=== PATIENT | female | born 1960 | race Caucasian/White ===

== ENCOUNTER 2019-09-11 16:47 | Inpatient (IN) | payer MEDICARE, MEDICAID, SELFPAY ==
--- NOTE | ~2019-09-11 | XR_ITS ---
EXAMINATION: XR lumbar spine 2-3V DATE: 09/11/2019 17:33 INDICATION: Nontraumatic low back pain TECHNIQUE: Anteroposterior, lateral views of the lumbar spine and cone-down lateral view of the lumbo sacral junction were obtained. COMPARISON: Lumbar spine MR dated 03/03/2013 and radiographs dated 12/12/2012 FINDINGS: 15 degree lumbar dextroscoliosis centered at L3. Vertebral body heights are normal. Severe left-sided disc height loss at L3-L4. Mild disc height loss at L1-L2 and L2-L3. Mild to moderate lower lumbar f acet osteoarthritis. No fracture identified. IMPRESSION: 1. Mild lumbar dextroscoliosis with interval progression of now severe degenerative disc disease at L 3-L4. No acute osseous abnormality. Reviewed, dictated and finalized at location A. K OPERATOR IMPRESSION: 1. Mild lumbar dextroscoliosis with interval progression of now severe degenera tive disc disease at L3-L4. No acute osseous abnormality.
--- NOTE | ~2019-09-11 | CT_ITS ---
EXAMINATION: CT thoracic spine wo con DATE: 09/11/2019 18:46 INDICATION: Back pain. TECHNIQUE: Computed tomography (CT) of the thoracic spine was performed without intravenous contrast. Automated exposure control and iterative reconstruction technique were employed. The dose-length pro duct was 449.89 mGy-cm. COMPARISON: Chest CT dated 06/03/2019 FINDINGS: Minimal thoracic levocurvature. Sagittal alignment is normal. Vertebral body heights are normal. No f ractures. Moderate to severe disc height loss with degenerative endplate changes at T2-T3 and T3-T4. Moderate disc height loss at C6-C7. Mild disc height loss at C7-T1 and T4-T5 through T10-T11. No cent ral canal stenosis. Mild to moderate left-sided and moderate to severe right-sided lower cervical and upper thoracic facet osteoarthritis. Together this results in mild neural foraminal stenosis at T2-T 3 through T4-T5 and on the left at T2-T3 and T4-T5. Calcified nodules in the right lower lobe along w ith calcified right hilar and mediastinal lymph nodes consistent with old granulomatous disease. Smal l sliding-type hiatal hernia. Diffuse hepatic steatosis. IMPRESSION: 1. Moderate to severe spondylosis at T2-T3 and T3-T4. Otherwise mild thoracic spondylosis. No acute o sseous abnormality. Reviewed, dictated and finalized at location A. E PACKAGING MACHINES SETTER IMPRESSION: 1. Moderate to severe spondylosis at T2-T3 and T3-T4. Otherwise mild thoracic s pondylosis. No acute osseous abnormality.
--- NOTE | ~2019-09-11 | CT_ITS ---
EXAMINATION: CT abd pelvis lumbar w con DATE: 09/11/2019 18:46 INDICATION: Leukocytosis. Urinary tract infection. Mid to low back pain. Tachycardia. TECHNIQUE: Computed tomography (CT) of the abdomen, pelvis and lumbar spine was performed with 100 mL Omnipaque-350 intravenous contrast. Automated exposure control and iterative reconstruction techniqu e were employed. The dose-length product was 293.88 mGy-cm. COMPARISON: MRI dated 06/12/[address] dated 06/03/2019 FINDINGS: Abdomen/pelvis: Mild emphysema at the periphery of the bilateral lower lobes. Heart size is normal. No pericardial or pleural effusion. Calcified right lower lobe nodule along with a few splenic calcifications consiste nt with old granulomatous disease. Small sliding-type hiatal hernia. Diffuse hepatic steatosis with m ore focal fat at the ligamentum teres. Gallbladder, pancreas, bilateral adrenal glands and right kidn ey are normal. There are a couple low-attenuation left renal cysts measuring up to 1 cm in maximal di ameter. There is urothelial enhancement at the left renal pelvis. Approximately 2 cm diameter region of heterogeneously decreased renal parenchymal enhancement the lower pole of the left kidney with no correlate on the relatively recent MRI to suggest neoplasm in this most likely represents a region of pyelonephritis. This would also account for the new asymmetric moderate left perinephric stranding. Diffuse mild bladder wall thickening. There is mild scattered colonic diverticulosis without adjacent inflammatory change to suggest diverticulitis. Small bowel and appendix are normal. Subcutaneous str anding and both the left and right sides of the lower abdominal wall suggesting scarring related to s ubcutaneous injections. The uterus is not identified and has likely been surgically resected. Lumbar spine: Mild lumbar dextroscoliosis. There is severe left-sided disc height loss with mild sclerotic degenera tive endplate changes at L3-L4. Mild disc height loss at L1-L2, L2-L3 and at the right side of L4-L5. Disc bulges tilting in mild central canal stenosis at L2-L3 through L5-S1. Mild to moderate left raj ed neural foraminal stenosis at L3-L4. Moderate facet osteoarthritis on the left at L3-L4, and the ri ght at L4-L5 and bilaterally at L5-S1. Mild facet osteoarthritis at the remaining lumbar levels. Mild neural foraminal stenosis on the right at L3-L4 and bilaterally at L4-L5 and L5-S1. IMPRESSION: 1. Pyelonephritis at the lower pole of the left kidney. 2. Mild lumbar dextroscoliosis with moderate lumbar spondylosis. 3. Small sliding-type hiatal hernia. 4. Mild diverticulosis. Reviewed, dictated and finalized at location A. BLOCKING MACHINE OPERATOR
[2019-09-11 16:57] VITALS: BP 125/75; PULSE 143; RESP 19; TEMP 37.2; O2SAT 99
--- NOTE | 2019-09-11 17:52 | ED.BACK ---
HPI - Back Pain/Injury General Chief Complaint: Back Pain/Injury Stated Complaint: BACK PAIN Time Seen by Provider: 09/11/19 17:49 Source: patient Mode of arrival: ambulatory Limitations: no limitations History of Present Illness HPI Narrative: Pt is a 59 y/o female presenting to the ED c/o back pain radiating to buttocks. Pt reports she started experiencing bilateral lower back pain radiating to buttocks 2 days ago after getting up out of bed. Pt states her pain is worsened with movement, and notes she has chronic back pain but has never been this severe. Pt also reports chills and GORMAN, but denies fever, CP, SOB, numbness, dysuria, hematuria, ABD pain, or palpitations. Pertinent past history: prior back pain (Chronic) Onset (ago): day(s) (2) Location: right lower back and left lower back Radiation: buttocks Exacerbating factors: movement Context: other (Getting out of bed) Associated symptoms: chills and other (Headache) Related Data Home Medications Medication Instructions Recorded Confirmed amitriptyline 09/11/19 atorvastatin 09/11/19 buprenorphine 09/11/19 bupropion HCl PO 09/11/19 exenatide [Byetta] mcg SUBCUT 09/11/19 ibuprofen 09/11/19 insulin detemir U-100 [Levemir unit SUBCUT 09/11/19 FlexTouch U-100 Insuln] lisinopril 09/11/19 Allergies Allergy/AdvReac Type Severity Reaction Status Date / Time No Known Allergies Allergy Unknown Verified 03/04/19 20:19 Review of Systems Review of Systems: All systems reviewed & are unremarkable except as noted in HPI and below Constitutional: Constitutional: Reports chills and Denies fever(s) Cardiovascular: Cardiovascular: Denies chest pain and Denies palpitations Respiratory: Respiratory: Denies dyspnea Gastrointestinal: Gastrointestinal: Denies abdominal pain Genitourinary: Genitourinary: Denies hematuria and Denies dysuria Musculoskeletal: Musculoskeletal: Reports back pain (Bilateral lower radiating to buttocks) Neurologic: Reports headache(s) and Denies numbness [facility] Past Medical History Medical History (Updated 09/11/19 @ 19:15 by Ana Rosa Montes MD) Abnormal uterine bleeding (Chronic) Anxiety (Chronic) Arthritis (Chronic) Bronchitis (Chronic) COPD (chronic obstructive pulmonary disease) (Chronic) Depression (Chronic) Fibromyalgia (Chronic) History of emphysema (Chronic) HLD (hyperlipidemia) (Chronic) HTN (hypertension) (Chronic) IDDM (insulin dependent diabetes mellitus) (Chronic) Shingles (Chronic) UTI (urinary tract infection) (Chronic) Surgical History Surgical History H/O cardiac catheterization (Chronic) H/O: hysterectomy (Chronic) History of bladder surgery (Chronic) Repair following injury after Hysterectomy History of (Chronic) x2 Social History Social History (Updated 09/11/19 @ 18:17 by Braydon Bland) Smoking status: Smoker, status unknown Gender identity (if verbalized by the patient): Female Exam Narrative: Exam Narrative: GENERAL: Well-appearing, well-nourished, and in no acute distress. EYES: EOMI. NECK: Supple. CHEST: Clear to auscultation. No respiratory distress. HEART: Tachycardic rate, 140s in room, regular rhythm. No murmur heard. Normal peripheral pulses. ABDOMEN: Nondistended. SPINE: Bilateral SI joint tenderness. Bilateral positive straight leg raise. Bilateral flank pain tenderness. EXTREMITIES: Normal range of motion. No edema. SKIN: Warm, dry, no rash. Buprenorphine pain patch on rt arm. NEURO: No focal deficits. Alert and oriented. Course Course Emergency Course: Patient presenting for evaluation of lower back pain. At time of initial assessment, ABCs are intact. Vital signs notable for tachycardia without fever or hypotension. Given that degree of tachycardia, it does not seem that musculoskeletal back pain would be causing this. Her EKG shows some nonspecific ST segment changes, EKG machine is reading acute MA, I disagree with th
--- NOTE | 2019-09-11 17:55 | ECG_ITS ---
Measurements Intervals [place] Rate: 121 P: 69 AL: 139 QRS: 52 QRSD: 93 T: 60 QT: 314 QTc: 447 Interpretive Statements SINUS TACHYCARDIA ST ELEVATION IN V1-V2, CONSIDER SEPTAL INJURY OR BRUGADA SYNDROME ABNORMAL ECG Electronically Signed On 09-11-2019 19:50:53 SUPERVISOR POWDERED METAL by Justin Cardona D.O.
[2019-09-11] MEDS: ONDANSETRON INJ 4 MG/2 ML VIAL IV PUSH (18:11)
[2019-09-11 18:12] LABS: Add Urine Microscopic? YES; Appearance Urine Cloudy (Clear); Bacteria Urine 2+ /hpf; Bilirubin Urine Negative (Negative); Blood Urine 1+ (Negative); Color Urine Yellow (Yellow); Glucose Urine UA 3+ mg/dL (Negative); Ketones Urine 1+ mg/dL (Negative); Leukocyte Esterase Ur 2+ LEU/UL (Negative); Mucus Urine Moderate /lpf; Nitrate Urine Negative (Negative); Protein Urine 2+ mg/dL (Negative); Specific Grav Ur 1.018 (1.001-1.035); Squamous Epithelial Cell Urine Few /hpf (Few); Urobilinogen Urine Negative mg/dL (<2.0); WBC Urine >75
[2019-09-11] MEDS: methylPREDNISolone SOD SUCC 125 MG VIAL IV PUSH (18:13)
[2019-09-11] MEDS: MORPHINE SULFATE 4 MG/ML INJ IV PUSH (18:14)
[2019-09-11 18:15] LABS: Basophils Percent Auto 0.1 % (0.2-1.2); Hematocrit 42.1 % (37.0-47.0); Hemoglobin 13.9 g/dL (12.0-15.0); Immature Granulocyte Absolute 0.09 K/mm3 (0.00-0.031); Immature Granulocyte Percent A 0.4 % (0-0.5); Lymphocytes Absolute Auto 3.17 K/mm3 (0.9-3.2); Lymphocytes Percent Auto 15.2 % (18.3-44.2); Mean Corpuscular Hemoglobin 28.8 pg (26-34); Mean Corpuscular Volume 87.2 fl (80-100); Mean Platelet Volume 9.8 fl (7.4-10.4); Monocytes Absolute Auto 1.7 K/mm3 (0.1-0.6); Monocytes Percent Auto 8.1 % (2.6-8.5); Neutrophils Absolute Auto 15.9 K/mm3 (1.3-6.7); Neutrophils Percent Auto 76.2 % (45.5-73.1); Platelet Count Result 262 k/mm3 (150-375); Red Blood Count 4.83 M/mm3 (4.2-5.4); Red Cell Distribution Width 13.2 % (11.5-14.5); White Blood Count 20.8 K/mm3 (4.5-10.0)
[2019-09-11 18:16] VITALS: BP 111/71; PULSE 124; RESP 22; O2SAT 94
[2019-09-11] MEDS: SODIUM CHLORIDE 0.9% IV 1,000 ML 999 ML IV CONT ×2 (18:16→18:55)
[2019-09-11 18:34] LABS: Blood Urea Nitrogen 24 mg/dL (7-17); Calcium 9.4 mg/dL (8.4-10.2); Carbon Dioxide 26 mmol/L (22-30); Chloride 92 mmol/L (98-107); Estimated Glomerular Filt Rate > 60; Glucose 274 mg/dL (65-105); Potassium 4.3 mmol/L (3.4-5.0); Sodium 132 mmol/L (137-145)
[2019-09-11 18:39] LABS: Erythrocyte Sedimentation Rate 20 mm/hr (0-20)
[2019-09-11 18:55] VITALS: TEMP 37.2
[2019-09-11 18:56] VITALS: BP 101/62; PULSE 117; RESP 18; O2SAT 93
[2019-09-11 18:58] LABS: CRP 18.1 mg/dL (<1.0)
[2019-09-11 19:00] LABS: Thyroid Stimulating Hormone 0.458 uIU/mL (0.465-4.680)
[2019-09-11 19:53] LABS: Glucose Point of Care 217 (65-105)
[2019-09-11 20:06] LABS: Lactic Acid Reflex 0.7 mmol/L (0.7-2.1)
[2019-09-11 20:18] LABS: Troponin I < 0.012 ng/mL (0.000-0.034)
[2019-09-11 20:29] VITALS: BP 102/72; PULSE 110; RESP 18; O2SAT 96
[2019-09-11 21:40] VITALS: BMI 25.3
--- NOTE | 2019-09-11 21:52 | ADMGEN ---
This patient, Xochitl Galdamez, was admitted to Medical Room 341-01. Patient/family oriented to hospital policies and general routines including ID bracelet, bed and alarms, visiting hours, pain management, procedures, bathroom and other care routines, personal items, smoking policy, room service/diet, and visiting hours. Valuables list has been completed. Information on how to activate the Rapid Response Team has been discussed. Patient/Family are encouraged to report perceived risks to care and to ask questions if they do not understand what they are told or what they should do.
[2019-09-11 22:00] VITALS: BP 109/75; PULSE 99; RESP 18; TEMP 36.7; O2SAT 92
[2019-09-11] MEDS: LACTATED RINGERS 1,000 ML 125 ML IV CONT (23:53)
[2019-09-11 23:58] LABS: Glucose Point of Care 450 (65-105)
[2019-09-12] MEDS: INSULIN ASPART (*BKC) 100 UNITS/ML 10 UNITS SUB-Q ×4 (01:33→14:40)
[2019-09-12 02:41] LABS: Glucose Point of Care 389 (65-105)
--- NOTE | 2019-09-12 05:00 | PM.IMHP ---
H&P: HPI History of Present Illness Chief complaint: pyelonephritis Narrative: Xochitl Galdamez is a 59 year old female with a past medical history of poorly controlled insulin-dependent diabetes, COPD, low back pain who presented to the ER with back pain. The patient reported that the pain started She assumed that she had just moved wrong end pulled some muscles. Pain was bilateral paraspinal area and was a 10/10 in intensity. She denied any nausea or vomiting, hematuria, changes in urinary frequency or urgency but does occasionally have intermittent dysuria. She has never had a problem with frequent urinary tract infections. She has not been having any fevers or chills. She reports that she was having back pain that was a 10/10 in intensity and was generally achy in nature. She would get up to make a meal for her grand kids to her staying with her for the weekend but would feel fatigued and the pain would be so bad she would go back to bed. She became concerned and came to the ER when she developed a frontal headache that was 10/10 in intensity. She denies any chest pain or increased shortness of breath. She quit smoking cigarettes about a year ago and reports that she she does not have a cough or any changes in respiratory symptoms. She has been having normally formed bowel movements in her last bowel movement was yesterday. She gets colonoscopies every 5 years due to family history of colon cancer in her grandfather. She reports that her headache has improved with IV fluids and the pain medications given in the ER. She still has a very mild ache in her back slightly worse than her baseline chronic pain. And she reports that her headache has completely resolved. In the ER UA was consistent with UTI and CT of the abdomen and pelvis and lumbar with contrast demonstrated pyelonephritis of the lower pole of the left kidney. She also had a CT of the thoracic spine and lumbar spine which demonstrated moderate lumbar spondylosis and T2-T4 severe spondylosis. When the patient arrived to the ER she was markedly tachycardic but this has resolved. Review of Systems Review of Systems: Narrative: Except as documented in the HPI, all other systems were reviewed and are negative. [facility] Past Medical History Medical History (Updated 09/12/19 @ 07:43 by Aminata Orta DO) Anxiety (Chronic) Arthritis (Chronic) COPD (chronic obstructive pulmonary disease) (Chronic) Depression (Chronic) Fibromyalgia (Chronic) History of emphysema (Chronic) HLD (hyperlipidemia) (Inactive) HTN (hypertension) (Chronic) IDDM (insulin dependent diabetes mellitus) (Chronic) Poorly controlled Shingles (Resolved) Surgical History Surgical History (Updated 09/12/19 @ 07:21 by Aminata Orta DO) H/O cardiac catheterization (Inactive) H/O: hysterectomy (Inactive) Laparoscopic hysterectomy with bilateral salpingo-oophorectomy August 2011 due to dysfunctional uterine bleeding urine and uterine polyps History of bladder surgery (Inactive) Repair of injury associated with laparoscopic hysterectomy performed at the same time as the hysterectomy History of (Inactive) x2 Hx of abdominoplasty (Inactive) Labial abscess (Resolved) Family History Family History (Updated 09/11/19 @ 22:05 by Krysten Benitez RN) Father High cholesterol Diabetes mellitus Cerebrovascular accident Sibling Diabetes mellitus Mother Hypertension Social History Social History (Updated 09/12/19 @ 07:46 by Aminata Orta DO) Social History: The patient lives in her own home and has a large dog who is 12 years. Her grandchildren come over on the weekends and stay with her. She has 2 children who are reportedly healthy. She quit smoking 1 year ago prior to quitting she smoked 1 pack per day since she was 14 years old. She rarely drinks alcohol. She is on disability due to fibromyalgia, and arthritis. The patient's primary care physician is Dr. Magdalena Orlando. Code status i
[2019-09-12 06:00] VITALS: BP 110/64; PULSE 99; RESP 16; TEMP 36.4; O2SAT 99
[2019-09-12 06:23] LABS: Basophils Percent Auto 0.1 % (0.2-1.2); Hematocrit 40.6 % (37.0-47.0); Hemoglobin 12.8 g/dL (12.0-15.0); Immature Granulocyte Percent A 0.7 % (0-0.5); Lymphocytes Percent Auto 8.1 % (18.3-44.2); Mean Corpuscular HGB Conc 31.5 g/dl (32-36); Mean Corpuscular Hemoglobin 28.5 pg (26-34); Mean Corpuscular Volume 90.4 fl (80-100); Mean Platelet Volume 9.7 fl (7.4-10.4); Monocytes Absolute Auto 0.4 K/mm3 (0.1-0.6); Monocytes Percent Auto 2.7 % (2.6-8.5); Neutrophils Percent Auto 88.4 % (45.5-73.1); Platelet Count Result 264 k/mm3 (150-375); Red Blood Count 4.49 M/mm3 (4.2-5.4); Red Cell Distribution Width 13.2 % (11.5-14.5); White Blood Count 14.8 K/mm3 (4.5-10.0)
--- NOTE | 2019-09-12 06:25 | PC.NURSE ---
Pt is independent. Unsure of total intake.
[2019-09-12 06:41] LABS: Blood Urea Nitrogen 23 mg/dL (7-17); Calcium 9.2 mg/dL (8.4-10.2); Carbon Dioxide 30 mmol/L (22-30); Chloride 100 mmol/L (98-107); Estimated CRCL calculation 58 ml/min; Estimated Glomerular Filt Rate > 60; Glucose 312 mg/dL (65-105); Potassium 3.9 mmol/L (3.4-5.0); Sodium 136 mmol/L (137-145)
[2019-09-12] MEDS: buPROPion HCL XL (24 HR) 150 MG TABCR PO (08:38)
[2019-09-12] MEDS: ATORVASTATIN 40 MG TABLET 80 MG PO (08:39)
[2019-09-12] MEDS: AMITRIPTYLINE HCL 25 MG TABLET PO (08:40)
[2019-09-12] MEDS: LISINOPRIL 5 MG TABLET PO (08:40)
[2019-09-12] MEDS: PANTOPRAZOLE 40 MG TABLET PO (08:41)
[2019-09-12] MEDS: ENOXAPARIN 40 MG/0.4 ML SYRINGE SUB-Q (08:41)
[2019-09-12] MEDS: INSULIN ASPART (*BKC) 100 UNITS/ML SUB-Q ×2 (08:56→16:18)
[2019-09-12] MEDS: INSULIN DETEMIR 100 UNITS/ML 64 UNITS SUB-Q (09:00)
[2019-09-12] MEDS: LACTATED RINGERS 1,000 ML 125 ML IV CONT ×2 (09:05→19:19)
[2019-09-12 09:10] VITALS: PULSE 99; RESP 16; O2SAT 99
[2019-09-12 09:18] LABS: Glucose Point of Care 227 (65-105)
[2019-09-12 11:41] LABS: Glucose Point of Care 430 (65-105)
--- NOTE | 2019-09-12 12:13 | PM.IMPN ---
Progress Note: A&P Assessment and Plan (1) Acute pyelonephritis: Code(s): N10 - Acute pyelonephritis Status: Acute Assessment and Plan: Patient is 59-year-old female presented emergency department with a complaint of severe bilateral lower back pain and dysuria patient is found to pyelonephritis and being treated with Rocephin, is feeling much better compared to when she arrived denies any abdominal pain nausea or vomiting fever or chills however back pain is still persisting, will continue present management follow up on urine culture and further recommendation to follow (2) Sepsis: Qualifiers: Sepsis acute organ dysfunction status: without acute organ dysfunction Sepsis type: sepsis due to unspecified organism Qualified Code(s): A41.9 - Sepsis, unspecified organism Code(s): A41.9 - Sepsis, unspecified organism Status: Resolved Assessment and Plan: Patient met the criteria initially when presented however symptoms have resolved (3) Anxiety: Code(s): F41.9 - Anxiety disorder, unspecified Status: Chronic Assessment and Plan: Patient is clinically stable will continue home regimen and monitor (4) IDDM (insulin dependent diabetes mellitus): Code(s): E11.9 - Type 2 diabetes mellitus without complications; Z79.4 - [facility] (current) use of insulin Status: Chronic Assessment and Plan: Patient clinically stable will continue home regimen and monitor with sliding scale Subjective Interval history: Patient is 59-year-old female presented emergency department with a complaint of severe bilateral lower back pain and dysuria patient is found to pyelonephritis and being treated with Rocephin, is feeling much better compared to when she arrived denies any abdominal pain nausea or vomiting fever or chills however back pain is still persisting Review of Systems Review of Systems: All systems reviewed & are unremarkable except as noted in HPI and below Constitutional: Constitutional: Reports as per HPI Eyes: Eyes: Reports as per HPI ENT: Reports as per HPI Cardiovascular: Cardiovascular: Reports as per HPI Respiratory: Respiratory: Reports as per HPI Gastrointestinal: Gastrointestinal: Reports as per HPI Genitourinary: Genitourinary: Reports frequent urination and Reports dysuria Musculoskeletal: Musculoskeletal: Reports as per HPI Integumentary/Breasts: Skin/Breast: Reports as per HPI Neurologic: Reports as per HPI Psychiatric: Psychiatric: Reports as per HPI Exam Narrative: Exam Narrative: Obese comfortable Const: General: comfortable and no acute distress HENMT: General nose exam: nares normal Mouth: Yes moist mucous membranes Eyes: General: appearance normal, both eyes and all related structures Sclera: sclerae normal Neck: Neck: supple Resp: Effort & Inspection: normal respiratory effort Auscultation: clear to auscultation bilaterally Cardio: Rate: regular rate Rhythm: regular rhythm Other: No murmur or gallop GI: Palpation (GI): Yes soft Auscultation: normal bowel sounds Other: Diffusely tender Skin: General skin exam: normal color and no rashes or lesions noted Neuro: Speech: normal speech Sensory Exam: normal sensation Extrem: General: normal to inspection and edema Psych: Affect: anxious affect Objective Data Vital Signs Vital Signs: Vital Signs - 24 hr 09/11/19 16:57 09/11/19 18:16 09/11/19 18:55 Temperature 99.0 F 99.0 F Pulse Rate 143 H 124 H Respiratory Rate 19 22 H Blood Pressure 125/75 111/71 Pulse Oximetry 99 94 L 09/11/19 18:56 09/11/19 20:29 09/11/19 22:00 Temperature 98.1 F Pulse Rate 117 H 110 H 99 Respiratory Rate 18 18 18 Blood Pressure 101/62 102/72 109/75 Pulse Oximetry 93 L 96 92 L 09/12/19 06:00 09/12/19 09:10 Temperature 97.5 F L Pulse Rate 99 99 Respiratory Rate 16 16 Blood Pressure 110/64 Pulse Oximetry 99 99 Intake/Output Intake/Output: Intake
[2019-09-12 14:00] VITALS: BP 104/63; PULSE 120; RESP 20; TEMP 36.2; O2SAT 94
[2019-09-12 14:15] LABS: Glucose Point of Care 404 (65-105)
[2019-09-12] MEDS: IBUPROFEN 400 MG TABLET PO (14:49)
[2019-09-12 16:07] LABS: Glucose Point of Care 323 (65-105)
--- NOTE | 2019-09-12 16:10 | PC.NURSE ---
Sent unopened box of home medication 4 patches of buprenorphine to pharmacy to verify.
--- NOTE | 2019-09-12 16:21 | PHAR ---
HOME MEDICATION VERIFIED BY PHARMACY: BUPRENORPHINE 5MCG/HR TRANSDERMAL PATCHES APPLY 1 PATCH EVERY WEEK RX#[id number]
--- NOTE | 2019-09-12 19:26 | PHAR ---
The patient's home med of Exenatide [Byetta] 10 MCG has been verified.
[2019-09-12] MEDS: INSULIN DETEMIR 100 UNITS/ML 57 UNITS SUB-Q (20:47)
[2019-09-12] MEDS: INSULIN ASPART (*BKC) 100 UNITS/ML 6 UNITS SUB-Q (21:10)
[2019-09-12 21:29] LABS: Glucose Point of Care 435 (65-105)
[2019-09-12 21:45] LABS: Glucose Point of Care 364 (65-105)
[2019-09-12 22:00] VITALS: BP 99/64; PULSE 101; RESP 16; TEMP 36.4; O2SAT 96
[2019-09-13] MEDS: LACTATED RINGERS 1,000 ML 125 ML IV CONT ×2 (03:58→16:29)
[2019-09-13 06:00] VITALS: BP 99/62; PULSE 80; RESP 16; TEMP 36.1; O2SAT 96
[2019-09-13 06:30] LABS: Hematocrit 35.7 % (37.0-47.0); Hemoglobin 11.3 g/dL (12.0-15.0); Mean Corpuscular HGB Conc 31.7 g/dl (32-36); Mean Corpuscular Hemoglobin 28.9 pg (26-34); Mean Corpuscular Volume 91.3 fl (80-100); Mean Platelet Volume 9.8 fl (7.4-10.4); Platelet Count Result 247 k/mm3 (150-375); Red Blood Count 3.91 M/mm3 (4.2-5.4); Red Cell Distribution Width 13.2 % (11.5-14.5); White Blood Count 16.9 K/mm3 (4.5-10.0)
[2019-09-13 06:46] LABS: Blood Urea Nitrogen 23 mg/dL (7-17); Calcium 8.8 mg/dL (8.4-10.2); Carbon Dioxide 33 mmol/L (22-30); Chloride 103 mmol/L (98-107); Estimated CRCL calculation 67 ml/min; Estimated Glomerular Filt Rate > 60; Glucose 123 mg/dL (65-105); Potassium 3.8 mmol/L (3.4-5.0); Sodium 139 mmol/L (137-145)
[2019-09-13 07:08] LABS: Glucose Point of Care 75 (65-105)
[2019-09-13] MEDS: PANTOPRAZOLE 40 MG TABLET PO (09:30)
[2019-09-13] MEDS: ATORVASTATIN 40 MG TABLET 80 MG PO (09:30)
[2019-09-13] MEDS: ENOXAPARIN 40 MG/0.4 ML SYRINGE SUB-Q (09:30)
[2019-09-13 09:31] VITALS: BP 97/60
[2019-09-13] MEDS: AMITRIPTYLINE HCL 25 MG TABLET PO (09:32)
[2019-09-13] MEDS: LISINOPRIL 5 MG TABLET PO (09:32)
[2019-09-13] MEDS: buPROPion HCL XL (24 HR) 150 MG TABCR PO (09:32)
--- NOTE | 2019-09-13 09:56 | ECG_ITS ---
Measurements Intervals [place] Rate: 92 P: 51 MA: 145 QRS: 37 QRSD: 86 T: 51 QT: 340 QTc: 421 Interpretive Statements SINUS RHYTHM INCOMPLETE RIGHT BUNDLE BRANCH BLOCK BASELINE ARTIFACT- III, AVL, V4-V5 BORDERLINE ECG Electronically Signed On 09-13-2019 10:39:54 COFFEE BLENDER by Justin Cardona D.O.
[2019-09-13 11:26] LABS: Troponin I 0.015 ng/mL (0.000-0.034)
[2019-09-13 11:44] LABS: Glucose Point of Care 132 (65-105)
[2019-09-13 14:00] VITALS: BP 124/64; PULSE 101; RESP 18; TEMP 36.6; O2SAT 97
--- NOTE | 2019-09-13 16:29 | PM.IMPN ---
Progress Note: A&P Assessment and Plan (1) Acute pyelonephritis: Code(s): N10 - Acute pyelonephritis Status: Acute Assessment and Plan: Patient is 59-year-old female presented emergency department with a complaint of severe bilateral lower back pain and dysuria patient is found to pyelonephritis and being treated with Rocephin, is feeling much better compared to when she arrived denies any abdominal pain nausea or vomiting fever or chills however back pain is still persisting, monitor the blood culture is positive for E coli as well as urine culture sensitivities pending, patient complains of chest pain that has been persisting for sometime was seen by her primary care provider, is reproducible per patient and does not change intensity with exertion, EKG was done did not show any acute changes 3 sets of cardiac enzymes are negative for acute coronary disease (2) Sepsis: Qualifiers: Sepsis acute organ dysfunction status: without acute organ dysfunction Sepsis type: sepsis due to unspecified organism Qualified Code(s): A41.9 - Sepsis, unspecified organism Code(s): A41.9 - Sepsis, unspecified organism Status: Resolved Assessment and Plan: Patient met the criteria initially when presented however symptoms have resolved (3) Anxiety: Code(s): F41.9 - Anxiety disorder, unspecified Status: Chronic Assessment and Plan: Patient is clinically stable will continue home regimen and monitor (4) IDDM (insulin dependent diabetes mellitus): Code(s): E11.9 - Type 2 diabetes mellitus without complications; Z79.4 - [facility] (current) use of insulin Status: Chronic Assessment and Plan: Patient clinically stable will continue home regimen and monitor with sliding scale (5) Chest pain: Code(s): R07.9 - Chest pain, unspecified Status: Acute Assessment and Plan: Patient with complaint of chest had been persisting prior to coming to emergency depart see was seen by her primary care doctor, according with the patient chest pain is reproducible upon palpation there is no change in intensity with exertion, to further evaluate patient had EKG which did not show any acute changes 3 sets of cardiac enzymes are negative for acute coronary disease most likely patient is a muscular pain patient will follow up with her metal wire technician as scheduled Subjective Interval history: Patient is 59-year-old female presented emergency department with a complaint of severe bilateral lower back pain and dysuria patient is found to pyelonephritis and being treated with Rocephin, is feeling much better compared to when she arrived denies any abdominal pain nausea or vomiting fever or chills however back pain is still persisting, monitor the blood culture is positive for E coli as well as urine culture sensitivities pending, patient complains of chest pain that has been persisting for sometime was seen by her primary care provider, is reproducible per patient and does not change intensity with exertion, EKG was done did not show any acute changes 3 sets of cardiac enzymes are negative for acute coronary disease Review of Systems Review of Systems: All systems reviewed & are unremarkable except as noted in HPI and below Constitutional: Constitutional: Reports as per HPI Eyes: Eyes: Reports as per HPI ENT: Reports as per HPI Cardiovascular: Cardiovascular: Reports as per HPI Respiratory: Respiratory: Reports as per HPI Gastrointestinal: Gastrointestinal: Reports as per HPI Genitourinary: Genitourinary: Reports frequent urination and Reports dysuria Musculoskeletal: Musculoskeletal: Reports as per HPI Integumentary/Breasts: Skin/Breast: Reports as per HPI Neurologic: Reports as per HPI Psychiatric: Psychiatric: Reports as per HPI Exam Narrative: Exam Narrative: Obese comfortable Const: General: comfortable and no acute distress HENMT: General nose exam: nares normal M
[2019-09-13] MEDS: INSULIN ASPART (*BKC) 100 UNITS/ML SUB-Q (16:40)
[2019-09-13 16:59] LABS: Glucose Point of Care 242 (65-105)
[2019-09-13] MEDS: IBUPROFEN 400 MG TABLET PO (17:36)
[2019-09-13 20:39] VITALS: BP 97/57; PULSE 100; RESP 15; TEMP 36.8; O2SAT 92
[2019-09-13 20:53] LABS: Glucose Point of Care 187 (65-105)
[2019-09-13] MEDS: INSULIN DETEMIR 100 UNITS/ML 25 UNITS SUB-Q (21:37)
[2019-09-14] MEDS: LACTATED RINGERS 1,000 ML 125 ML IV CONT (01:21)
[2019-09-14] MEDS: IBUPROFEN 400 MG TABLET 800 MG PO ×2 (02:38→15:01)
[2019-09-14 06:00] VITALS: BP 108/61; PULSE 80; RESP 16; TEMP 36.3; O2SAT 96
[2019-09-14 06:21] LABS: Hematocrit 36.2 % (37.0-47.0); Hemoglobin 11.3 g/dL (12.0-15.0); Mean Corpuscular HGB Conc 31.2 g/dl (32-36); Mean Corpuscular Hemoglobin 28.5 pg (26-34); Mean Corpuscular Volume 91.2 fl (80-100); Platelet Count Result 262 k/mm3 (150-375); Red Blood Count 3.97 M/mm3 (4.2-5.4); Red Cell Distribution Width 13.1 % (11.5-14.5)
[2019-09-14 06:38] LABS: Blood Urea Nitrogen 15 mg/dL (7-17); Calcium 8.6 mg/dL (8.4-10.2); Carbon Dioxide 34 mmol/L (22-30); Chloride 100 mmol/L (98-107); Estimated CRCL calculation 79 ml/min; Estimated Glomerular Filt Rate > 60; Glucose 105 mg/dL (65-105); Potassium 3.4 mmol/L (3.4-5.0); Sodium 138 mmol/L (137-145)
[2019-09-14 08:09] LABS: Glucose Point of Care 76 (65-105)
[2019-09-14] MEDS: ATORVASTATIN 40 MG TABLET 80 MG PO (08:22)
[2019-09-14] MEDS: AMITRIPTYLINE HCL 25 MG TABLET PO (08:22)
[2019-09-14] MEDS: ENOXAPARIN 40 MG/0.4 ML SYRINGE SUB-Q (08:23)
[2019-09-14] MEDS: buPROPion HCL XL (24 HR) 150 MG TABCR PO (08:23)
[2019-09-14] MEDS: LISINOPRIL 5 MG TABLET PO (08:23)
[2019-09-14] MEDS: PANTOPRAZOLE 40 MG TABLET PO (08:23)
[2019-09-14] MEDS: INSULIN DETEMIR 100 UNITS/ML 64 UNITS SUB-Q (10:50)
[2019-09-14 11:24] LABS: Glucose Point of Care 271 (65-105)
--- NOTE | 2019-09-14 12:07 | PM.DS ---
DS: Diagnosis Admitting Diagnosis Admitting Diagnosis: Acute pyelonephritis Discharge Diagnosis (1) Acute pyelonephritis: Code(s): N10 - Acute pyelonephritis Status: Acute Assessment and Plan: Patient is 59-year-old female presented emergency department with a complaint of severe bilateral lower back pain and dysuria patient is found to pyelonephritis and being treated with Rocephin, pt feels better, denies flank pain or pain on urination. Blood culture is positive for E coli as well as urine culture sensitivities to augmentin. Pt to complete course of augmentin and follow with her PCp in 2-3 weeks time for rpt UA. Pt can use tylenol or ibuprofen for pain. (2) Sepsis: Qualifiers: Sepsis acute organ dysfunction status: without acute organ dysfunction Sepsis type: sepsis due to unspecified organism Qualified Code(s): A41.9 - Sepsis, unspecified organism Code(s): A41.9 - Sepsis, unspecified organism Status: Resolved Assessment and Plan: Patient met the criteria initially when presented, these symptoms have resolved (3) Anxiety: Code(s): F41.9 - Anxiety disorder, unspecified Status: Chronic Assessment and Plan: Patient is clinically stable (4) IDDM (insulin dependent diabetes mellitus): Code(s): E11.9 - Type 2 diabetes mellitus without complications; Z79.4 - senior care (current) use of insulin Status: Chronic Assessment and Plan: Patient clinically stable (5) Chest pain: Code(s): R07.9 - Chest pain, unspecified Status: Resolved Assessment and Plan: Patient had episode of chest pain , which has resolved, 3 sets of cardiac enzymes are negative most likely chest pain is a muscular pain patient will follow up with her building services engineer as scheduled DS: Summary Time Spent with Patient Time attestation: Total time spent providing and/or coordinating discharge services:35 minutes on day of discharge Exam Narrative: Exam Narrative: Obese comfortable Const: General: comfortable and no acute distress HENMT: General nose exam: nares normal Mouth: Yes moist mucous membranes Eyes: General: appearance normal, both eyes and all related structures Sclera: sclerae normal Neck: Neck: supple Resp: Effort & Inspection: normal respiratory effort Auscultation: clear to auscultation bilaterally Cardio: Rate: regular rate Rhythm: regular rhythm Other: No murmur or gallop GI: Palpation (GI): Yes soft Auscultation: normal bowel sounds Other: Soft non tender no flank pains BL Skin: General skin exam: normal color and no rashes or lesions noted Neuro: Speech: normal speech Sensory Exam: normal sensation Extrem: General: normal to inspection and edema Psych: Affect: anxious affect DS: Data Data Completed and Pending Labs on day of discharge: Labs from last 24 hours 09/14/19 09/14/19 09/14/19 10:46 08:07 05:51 WBC RBC Hgb Hct MCV MCH MCHC RDW Plt Count MPV Sodium 138 Potassium 3.4 Chloride 100 Carbon Dioxide 34 H BUN 15 D Creatinine 0.50 L Estim Creat Clear Calc 79 Estimated GFR > 60 Glucose 105 POC Capillary Glucose 271 H 76 Calcium 8.6 09/14/19 09/13/19 09/13/19 05:51 20:39 16:33 WBC 8.0 RBC 3.97 L Hgb 11.3 L Hct 36.2 L MCV 91.2 MCH 28.5 MCHC 31.2 L RDW 13.1 Plt Count 262 MPV 10.0 Sodium Potassium Chloride Carbon Dioxide BUN Creatinine Estim Creat Clear Calc Estimated GFR Glucose POC Capillary Glucose 187 H 242 H Calcium Preliminary micro results at discharge 09/11/19 19:50 Blood Culture - Preliminary Blood Escherichia Coli (ESBL) 09/11/19 19:50 Blood Culture - Preliminary Blood Discharge Plan Discharge Attending physician on discharge: Tori Kumar Discharging Clinician: Tori Kumar Patient Disposition: Home, Self
[2019-09-14 12:47] LABS: Add Urine Microscopic? YES; Appearance Urine Clear (Clear); Bilirubin Urine Negative (Negative); Blood Urine 1+ (Negative); Color Urine Straw (Yellow); Glucose Urine UA 3+ mg/dL (Negative); Ketones Urine Negative (Negative); Leukocyte Esterase Ur Negative LEU/UL (Negative); Mucus Urine Rare /lpf; Nitrate Urine Negative (Negative); Protein Urine Negative (Negative); RBC Urine 0-2 /hpf (0-2); Specific Grav Ur 1.011 (1.001-1.035); Squamous Epithelial Cell Urine Rare /hpf (Few); Urobilinogen Urine Negative mg/dL (<2.0); WBC Urine 0-3
[2019-09-14 13:32] LABS: Glucose Point of Care 175 (65-105)
[2019-09-14 14:00] VITALS: BP 141/72; PULSE 97; RESP 20; TEMP 36.4; O2SAT 90
== END 2019-09-14 16:10 | disposition home or self-care (01) | DRG 690 ==
LOC: ANHED 20:57 → ANH3MED 21:00
PROVIDERS: Family Medicine; Admitting Provider Internal Medicine; Emergency Provider Emergency Medicine; PCP Family Medicine; Visit Provider Family Medicine
DX: N10 Acute pyelonephritis (principal); E11.9 Type 2 diabetes mellitus without complications; Z79.4 Long term (current) use of insulin; J44.9 Chronic obstructive pulmonary disease, unspecified; M47.896 Other spondylosis, lumbar region; F41.8 Other specified anxiety disorders; E78.5 Hyperlipidemia, unspecified; I10 Essential (primary) hypertension; Z90.710 Acquired absence of both cervix and uterus; Z90.722 Acquired absence of ovaries, bilateral; Z90.79 Acquired absence of other genital organ(s); F17.290 Nicotine dependence, other tobacco product, uncomplicated
CPT/HCPCS: 36415; 72100; 72128; 72132; 74177; 80048; 81001; 83605; 84443; 84484; 85025; 85027; 85652; 86140; 87040; 87077; 87086; 87088; 87186; 93005; 96361; 96365; 96366; 96367; 96372; 96375; 99285; A9270; G0378; J0131; J0696; J1650; J1815; J2270; J2405; J2930; J7030; J7120; Q9967

== ENCOUNTER 2020-08-08 10:49 | Outpatient (CLI) | payer MEDICARE, MEDICAID, SELFPAY ==
--- NOTE | ~2020-08-08 | CT_ITS ---
EXAMINATION: CT chest wo con DATE: 08/08/2020 11:08 INDICATION: Pulmonary nodules TECHNIQUE: Computed tomography (CT) of the chest was performed without intravenous contrast. The dose -length product was 73.20 mGy-cm. Automated exposure control and iterative reconstruction technique w ere employed. COMPARISON: CT dated 06/03/2019 FINDINGS: Nonenlarged mediastinal lymph nodes, likely reactive. There are calcified mediastinal and r ight hilar lymph nodes, consistent with chronic granulomatous disease. No significant pleural or reji cardial effusion. There are calcified granulomas of the right lower lobe, liver and spleen. There is linear atelectasis/scarring of the right middle lobe and lingula. Decreased size of nonsolid groundgl ass nodule left upper lobe measuring 8 mm, likely benign. Mild emphysema. Stable ill-defined hypodens ity left hepatic lobe, possible focal fatty infiltration although mass is not excluded. IMPRESSION: 1. Decreased size of nonsolid 8 mm left upper lobe nodule, likely benign. Follow-up low dose CT chest in 12 months recommended. 2: Stable ill-defined hypodense 2 cm mass left hepatic lobe. Consider correlation with ultrasound or contrast-enhanced MRI. Reviewed, dictated and finalized at location A. IMPRESSION: 1. Decreased size of nonsolid 8 mm left upper lobe nodule, likely benign. Follo w-up low dose CT chest in 12 months recommended. 2: Stable ill-defined hypodense 2 cm mass left hepatic lobe. Consider correlati on with ultrasound or contrast-enhanced MRI.
== END 2020-08-08 10:50 | disposition home or self-care (01) ==
PROVIDERS: PCP Family Medicine; Visit Provider Internal Medicine Pulmonary Disease
DX: R93.89 Abnormal findings on diagnostic imaging of other specified body structures (principal); R91.1 Solitary pulmonary nodule
CPT/HCPCS: 71250

== ENCOUNTER 2020-12-01 14:29 | Outpatient (CLI) | payer MEDICARE, MEDICAID, SELFPAY ==
--- NOTE | ~2020-12-01 | MM_ITS ---
EXAMINATION: MM screening rox BI w ketty HISTORY: Screening TECHNIQUE: Craniocaudal and mediolateral oblique 3-D tomosynthesis images were obtained and synthetic 2-D images were generated. CAD analysis was submitted and interpreted. COMPARISON: Comparison to multiple prior studies sequentially, with oldest reviewed study dated 06/08. BREAST PARENCHYMAL COMPOSITION: There are scattered areas of fibroglandular density. FINDINGS: There is no evidence of suspicious mass, calcification, or architectural distortion to sugg est malignancy in either breast. There has been no suspicious interval change. IMPRESSION: 1. No mammographic evidence of malignancy. 2. Recommend routine screening mammography in one year. BI-RADS Category 1: Negative Reviewed, dictated and finalized at location A. 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
== END 2020-12-01 14:30 | disposition home or self-care (01) ==
LOC: ANHIMG 14:33
PROVIDERS: PCP Family Medicine; Visit Provider Family Medicine
DX: Z12.31 Encounter for screening mammogram for malignant neoplasm of breast (principal)
CPT/HCPCS: 77063; 77067

== ENCOUNTER 2021-06-29 09:42 | Outpatient (CLI) | payer MEDICARE, MEDICAID, SELFPAY ==
--- NOTE | ~2021-06-29 | XR_ITS ---
XR knee LT min 4V 06/29/2021 10:03 INDICATION: Left knee pain PROCEDURE: 4 views left knee COMPARISON: 11/01/2013 FINDINGS: Fracture, dislocation or subluxation is not identified. No significant joint effusion. The soft tissues appear within normal limits. No foreign bodies are identified. IMPRESSION: 1: NO ACUTE BONE OR JOINT ABNORMALITY IDENTIFIED. Reviewed, dictated and finalized at location A.
== END 2021-06-29 09:43 | disposition home or self-care (01) ==
LOC: ANHIMG 09:49
PROVIDERS: PCP Family Medicine; Visit Provider Family Medicine
DX: M25.562 Pain in left knee (principal)
CPT/HCPCS: 73564

== ENCOUNTER 2021-07-23 15:14 | Outpatient (CLI) | payer MEDICARE, MEDICAID, SELFPAY ==
--- NOTE | ~2021-07-23 | CT_ITS ---
EXAMINATION:CT diagnostic chest wo con DATE: 07/23/2021 16:04 INDICATION: Solitary pulmonary nodule. TECHNIQUE: Computed tomography (CT) of the chest was performed without intravenous contrast. Automate d exposure control and iterative reconstruction technique were employed. The dose-length product (DLP ) was 78.08 mGy-cm. COMPARISON: Chest CT 08/08/2020, 06/03/19 FINDINGS: There is mild emphysema. There is mild atelectasis bilaterally. Calcified right lung nodule s and calcified right hilar and mediastinal lymph nodes are consistent with old granulomatous disease . Again seen is a 6 mm nodule in right upper lobe. There is an 11 mm part-solid nodule with 3 mm nadia d component. There is a stable 8 mm nodule in basilar left lower lobe. These findings are stable fro m 06/03/2019. There is mild bronchiectasis in left lower lobe. No pleural effusion. The heart size is normal. No pericardial effusion. There is a small sliding hiatal hernia. There is diffuse hepatic danna atosis. There is severe thoracic spondylosis. IMPRESSION: 1. Stable pulmonary nodules, likely benign. 2. Mild emphysema. 3. Diffuse hepatic steatosis. 4. Small sliding hiatal hernia. Reviewed, dictated and finalized at location A.
== END 2021-07-23 15:15 | disposition home or self-care (01) ==
PROVIDERS: PCP Family Medicine; Visit Provider Family Medicine
DX: R91.1 Solitary pulmonary nodule (principal); J43.9 Emphysema, unspecified; K44.9 Diaphragmatic hernia without obstruction or gangrene; K76.0 Fatty (change of) liver, not elsewhere classified
CPT/HCPCS: 71250

== ENCOUNTER 2021-08-08 15:04 | Outpatient (CLI) | payer MEDICARE, MEDICAID, SELFPAY ==
--- NOTE | ~2021-08-08 | XR_ITS ---
EXAMINATION: XR wrist RT min 3V DATE: 08/08/2021 15:23 INDICATION: Right wrist osteoarthritis and pain. TECHNIQUE: 4 views of right wrist were obtained. COMPARISON: None. FINDINGS: Bone alignment is normal. No fracture. Joint spaces are well maintained. IMPRESSION: 1. Normal right wrist. Reviewed, dictated and finalized at location A. IMPRESSION: 1. Normal right wrist.
--- NOTE | ~2021-08-08 | XR_ITS ---
EXAMINATION: XR hand RT min 3V DATE: 08/08/2021 15:23 INDICATION: Right hand osteoarthritis and pain. TECHNIQUE: 3 views of right hand were obtained. COMPARISON: None. FINDINGS: Bone alignment is normal. No fracture. There is mild osteoarthritis of first and fifth meta carpophalangeal joints. IMPRESSION: 1. Mild polyarticular osteoarthritis. Reviewed, dictated and finalized at location A.
== END 2021-08-08 15:05 | disposition home or self-care (01) ==
PROVIDERS: PCP Family Medicine; Visit Provider Plastic Surgery
DX: M19.041 Primary osteoarthritis, right hand (principal); M19.042 Primary osteoarthritis, left hand
CPT/HCPCS: 73110; 73130

== ENCOUNTER 2021-09-28 07:59 | Outpatient (CLI) | payer MEDICARE, MEDICAID, SELFPAY ==
--- NOTE | ~2021-09-28 | DEXA_ITS ---
Bone Density Report Name: CADEN BAILEY Age: 61 Sex: Female Ethnicity: White Date of : 1960 Indication: osteopenia; height loss; asthma or emphysema; hysterectomy; postmenopausal Referring Provider: RM, SARA Catalan Study: Bone densitometry was performed. Exam Date: September 28, 2021 Accession number: [id number] Bone Density: Region BMD T-score Z-score Classification AP Spine (L1, L2, L4) 0.920 -1.0 0.5 Normal Femoral Neck (Left) 0.662 -1.7 -0.3 Osteopenia Total Hip (Left) 0.794 -1.2 -0.1 Osteopenia Total Hip Bilateral Avg 0.792 -1.3 -0.2 Osteopenia Femoral Neck (Right) 0.692 -1.4 0.0 Osteopenia Total Hip (Right) 0.789 -1.3 -0.2 Osteopenia World Health Organization criteria for BMD impression classify patients as: Normal (T-score at or above -1.0), Osteopenia (T-score between -1.0 and -2.5), or Osteoporosis (T-score at or below -2.5). 10-year Fracture Risk(1): Major Osteoporotic Fracture 9.1% Hip Fracture 1.6% Reported Risk Factors: [place] (), Neck BMD=0.662, BMI=24.7, smoking (1) FRAX(R) Version 3.08. Fracture probability calculated for an untreated patient. Fracture probability may be lower if the patient has received treatment. Previous Exams: Region Exam Age BMD T-score BMD Change BMD Change Date g/cm2 vs Baseline vs Previous AP Spine(L1, L2, L4) 09/28/2021 61 0.920 -1.0 -0.106(-10.3%) -0.028(-2.9%)* 07/23/2017 57 0.948 -0.8 -0.078(-7.6%)# 0.003(0.3%) 05/17/2014 53 0.945 -0.8 -0.081(-7.9%)# -0.081(-7.9%)# 02/03/2012 51 1.026 -0.1 Total Hip(Left) 09/28/2021 61 0.794 -1.2 -0.159(-16.7%) -0.036(-4.3%)* 07/23/2017 57 0.830 -0.9 -0.123(-12.9%) -0.034(-3.9%)* 05/17/2014 53 0.864 -0.6 -0.089(-9.4%)# -0.089(-9.4%)# 02/03/2012 51 0.953 0.1 Total Hip(Right) 09/28/2021 61 0.789 -1.3 -0.203(-20.4%) -0.023(-2.8%) 07/23/2017 57 0.811 -1.1 -0.180(-18.2%) -0.024(-2.8%) 05/17/2014 53 0.835 -0.9 -0.156(-15.8%) -0.156(-15.8%) 02/03/2012 51 0.991 0.4 *Denotes significance at 95% confidence level, LSC for AP Spine = 0.022 g/cm2, LSC for Total Hip = 0.027 g/cm2 Clinical Information Provided by Patient: Smokes Has used the following medications: Vitamin D, Calcium Has the following medical conditions: Asthma or Emphysema, Hysterectomy Patient maximum height was 63.5 Menopause Age: 51 No regular weight bearing exercise Drinks caffeinated beverages Onset of menses at age 12 Number of children 2
== END 2021-09-28 08:00 | disposition home or self-care (01) ==
LOC: ANHIMG 08:00
PROVIDERS: PCP Family Medicine; Visit Provider Family Medicine
DX: Z78.0 Asymptomatic menopausal state (principal); M85.89 Other specified disorders of bone density and structure, multiple sites
CPT/HCPCS: 77080

== ENCOUNTER 2021-10-17 10:40 | Emergency (ER) | payer MEDICARE, MEDICAID, SELFPAY ==
--- NOTE | ~2021-10-17 | XR_ITS ---
EXAMINATION: XR chest 2V DATE: 10/17/2021 14:02 INDICATION: Hypoxia. 4 days of productive cough. TECHNIQUE: frontal and lateral views of the chest were obtained. COMPARISON: Chest CT dated 07/23/2021 FINDINGS: Mild linear and curvilinear discoid atelectasis/scarring in the right middle lobe and lingula. No oth er airspace opacities, pulmonary edema, pleural effusion or pneumothorax. The cardiomediastinal silho uette is normal. Visualized bones and soft tissues are unremarkable. IMPRESSION: 1. Mild discoid atelectasis/scarring in the right middle lobe and lingula. Reviewed, dictated and finalized at location B. 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
--- NOTE | ~2021-10-17 | XR_ITS ---
EXAMINATION: XR ankle RT min 3V DATE: 10/17/2021 14:02 INDICATION: Erythema and soreness at the right ankle TECHNIQUE: Anteroposterior, oblique, mortise, and lateral views of the right ankle were obtained. COMPARISON: None. FINDINGS: Alignment is normal. No fracture. Joint spaces are well maintained. Right ankle joint effusion with increased density projecting over the anterior recess of the tibiotalar joint space. Prominent soft t issue swelling overlying the lateral malleolus. No cortical erosions or periosteal reaction. No evide nt soft tissue gas or radiopaque foreign bodies. IMPRESSION: 1. Nonspecific right ankle joint effusion and focal soft tissue swelling over the lateral malleolus. No osseous abnormality. Reviewed, dictated and finalized at location B. ON LINER IMPRESSION: 1. Nonspecific right ankle joint effusion and focal soft tissue swelling over t he lateral malleolus. No osseous abnormality.
[2021-10-17 10:57] VITALS: BP 106/80; PULSE 130; RESP 20; TEMP 37.9; O2SAT 100
[2021-10-17 13:06] VITALS: BP 110/75; PULSE 124; RESP 18; TEMP 36.3; O2SAT 89
--- NOTE | 2021-10-17 13:49 | ED.WOUNDLAC ---
HPI - Wound/Laceration General Chief Complaint: Wound/Laceration Stated Complaint: leg wound/swelling/de luna Time Seen by Provider: 10/17/21 13:37 Source: patient and RN notes reviewed Mode of arrival: ambulatory Limitations: no limitations History of Present Illness HPI narrative: This is a 61 year old female with history of multiple medical problems including Diabetes mellitus who presents for evaluation of right ankle pain with redness, pain and swelling. She noticed itching to right lateral ankle 2-3 days ago, and she later developed pain, redness, and swelling. She denies injury ankle or creating a wound. She is also complaining of nausea, vomiting. She denies chest pain, shortness of breath or abdominal pain. She reports having subjective fever and chills. She also states her blood sugar has been under control. Related Data Home Medications Medication Instructions Recorded Confirmed Byetta 10 mcg SUBCUT BID 09/11/19 10/15/21 Levemir FlexTouch U-100 Insuln See Rx Instructions .ROUTE .COMPLEX 09/11/19 10/15/21 albuterol sulfate [ProAir HFA] 2 puff INHALATION QID PRN 09/11/19 10/15/21 amitriptyline 25 mg PO DAILY 09/11/19 10/15/21 atorvastatin 80 mg PO DAILY 09/11/19 10/15/21 budesonide-formoterol [Symbicort] 2 puff INHALATION Q12H 09/11/19 10/15/21 buprenorphine 5 mcg TRANSDERMAL WEEKLY 09/11/19 10/15/21 bupropion HCl 150 mg PO DAILY 09/11/19 10/15/21 ibuprofen 800 mg PO TID PRN 09/11/19 10/15/21 omeprazole 40 mg PO DAILY 09/11/19 10/15/21 aspirin 81 mg PO DAILY 10/15/21 10/15/21 calcium carbonate 250 mg PO DAILY PRN 10/15/21 10/15/21 diltiazem HCl 120 mg PO DAILY 10/15/21 10/15/21 fluticasone propionate 1 spray INTRANASAL DAILY 10/15/21 10/15/21 [id number] 1 cap PO DAILY 10/15/21 10/15/21 [krill oil] lactobacillus combination no.8 1 cell PO DAILY 10/15/21 10/15/21 [Adult Probiotic] metoprolol succinate 100 mg PO DAILY 10/15/21 10/15/21 multivit with min-folic acid 1 tablet PO DAILY 10/15/21 10/15/21 [Adult One Daily Multivitamin] psyllium husk [Fiber-Caps 0.52 g PO DAILY 10/15/21 10/15/21 (psyllium husk)] Allergies Allergy/AdvReac Type Severity Reaction Status Date / Time No Known Allergies Allergy Unknown Verified 10/15/21 12:58 Review of Systems Review of Systems: All systems reviewed & are unremarkable except as noted in HPI and below PMFSH Past Medical History Medical History Anxiety Arthritis COPD (chronic obstructive pulmonary disease) Depression Fibromyalgia History of emphysema HLD (hyperlipidemia) HTN (hypertension) IDDM (insulin dependent diabetes mellitus) Poorly controlled Shingles Surgical History Surgical History H/O cardiac catheterization H/O: hysterectomy Laparoscopic hysterectomy with bilateral salpingo-oophorectomy August 2011 due to dysfunctional uterine bleeding urine and uterine polyps History of bladder surgery Repair of injury associated with laparoscopic hysterectomy performed at the same time as the hysterectomy History of x2 Hx of abdominoplasty Labial abscess Family History Family History (Updated 09/11/19 @ 22:05 by Krysten Benitez RN) Father High cholesterol Diabetes mellitus Cerebrovascular accident Sibling Diabetes mellitus Mother Hypertension Social History Social History (Updated 09/12/19 @ 07:46 by Aminata Orta DO) Social History: The patient lives in her own home and has a large dog who is 12 years. Her grandchildren come over on the weekends and stay with her. She has 2 children who are reportedly healthy. She quit smoking 1 year ago prior to quitting she smoked 1 pack per day since she was 14 years old. She rarely drinks alcohol. She is on disability due to fibromyalgia, and arthritis. The patient's primary care physician is Dr. Magdalena Orlando. Code status is full code. Smoking
[2021-10-17 15:07] LABS: Basophils Percent Auto 0.2 % (0.2-1.2); Eosinophils Percent Auto 0.2 % (0-4.4); Hematocrit 45.6 % (37.0-47.0); Hemoglobin 14.7 g/dL (12.0-15.0); Immature Granulocyte Absolute 0.04 K/mm3 (0.00-0.031); Immature Granulocyte Percent A 0.5 % (0-0.5); Lymphocytes Absolute Auto 1.72 K/mm3 (0.9-3.2); Lymphocytes Percent Auto 20.8 % (18.3-44.2); Mean Corpuscular HGB Conc 32.2 g/dl (32-36); Mean Corpuscular Volume 89.9 fl (80-100); Mean Platelet Volume 9.7 fl (7.4-10.4); Monocytes Absolute Auto 0.6 K/mm3 (0.1-0.6); Neutrophils Absolute Auto 5.9 K/mm3 (1.3-6.7); Neutrophils Percent Auto 71.3 % (45.5-73.1); Platelet Count Result 206 k/mm3 (150-375); Red Blood Count 5.07 M/mm3 (4.2-5.4); Red Cell Distribution Width 14.1 % (11.5-14.5); White Blood Count 8.3 K/mm3 (4.5-10.0)
[2021-10-17 15:16] LABS: INR 0.9; Prothrombin Time 12.3 Seconds (11.1-14.7)
[2021-10-17 15:17] LABS: Partial Thromboplastin Time 25.3 SECONDS (22.3-36.8)
[2021-10-17 15:19] LABS: Alanine Aminotransferase 50 U/L (4-35); Albumin Level 4.2 g/dL (3.5-5.1); Alkaline Phosphatase 133 U/L (38-126); Anion Gap 12 mmol/L (8-16); Aspartate Amino Transferase 48 U/L (14-36); Bilirubin,Total 0.5 mg/dL (0.2-1.3); Blood Urea Nitrogen 19 mg/dL (7-17); Calcium 9.2 mg/dL (8.4-10.2); Carbon Dioxide 28 mmol/L (22-30); Chloride 93 mmol/L (98-107); Estimated CRCL calculation 65 ml/min; Estimated Glomerular Filt Rate > 60; Glucose 274 mg/dL (65-110); Lactic Acid Reflex 2.4 mmol/L (0.7-2.1); Potassium 3.9 mmol/L (3.4-5.0); Sodium 133 mmol/L (137-145)
[2021-10-17 15:21] LABS: CRP 3.6 mg/dL (<1.0); Lipase 97 U/L (23-300); Magnesium 1.7 mg/dL (1.6-2.3)
[2021-10-17 15:57] LABS: Add Urine Microscopic? YES; Appearance Urine Clear (Clear); Bacteria Urine Trace /hpf; Bilirubin Urine Negative (Negative); Blood Urine Negative (Negative); Color Urine Amber (Yellow); Glucose Urine UA 3+ mg/dL (Negative); Ketones Urine Trace mg/dL (Negative); Leukocyte Esterase Ur Negative LEU/UL (Negative); Mucus Urine Rare /lpf; Nitrate Urine Negative (Negative); Protein Urine 1+ mg/dL (Negative); RBC Urine 0-2 /hpf (0-2); Specific Grav Ur 1.022 (1.001-1.035); Squamous Epithelial Cell Urine Occasional /hpf (Few); Urobilinogen Urine Negative mg/dL (<2.0); WBC Urine 0-3 /hpf
[2021-10-17] MEDS: SODIUM CHLORIDE 0.9% IV 1,000 ML 999 ML IV CONT (16:18)
[2021-10-17] MEDS: ONDANSETRON INJ 4 MG/2 ML VIAL IV PUSH (16:18)
[2021-10-17 17:00] VITALS: BP 112/65; PULSE 98; O2SAT 98
[2021-10-17] MEDS: DOXYCYCLINE HYCLATE 100 MG TABLET PO (17:21)
[2021-10-17] MEDS: CEFUROXIME AXETIL 250 MG TABLET 500 MG PO (17:21)
[2021-10-17 18:04] LABS: Reflex Lactic Acid Yes or No Add Lactic
== END 2021-10-17 17:26 | disposition home or self-care (01) ==
PROVIDERS: Emergency Provider General Practice; PCP Family Medicine
DX: L03.115 Cellulitis of right lower limb (principal); F41.9 Anxiety disorder, unspecified; M19.90 Unspecified osteoarthritis, unspecified site; J44.9 Chronic obstructive pulmonary disease, unspecified; F32.9 Major depressive disorder, single episode, unspecified; M79.7 Fibromyalgia; I10 Essential (primary) hypertension; E11.9 Type 2 diabetes mellitus without complications; Z79.4 Long term (current) use of insulin; F17.290 Nicotine dependence, other tobacco product, uncomplicated
CPT/HCPCS: 36415; 71046; 73610; 80053; 81001; 83605; 83690; 83735; 85025; 85610; 85730; 86140; 96361; 96374; 96375; 99284; A9270; J0131; J2405; J7030

== ENCOUNTER → 2021-10-27 00:10 | Outpatient (CLI) | payer MEDICARE, MEDICAID, SELFPAY ==
[2021-10-27 14:49] LABS: SARS-CoV-2 RNA PCR Positive
== END ==
PROVIDERS: PCP Family Medicine; Visit Provider Internal Medicine Gastroenterology
DX: U07.1 COVID-19 (principal)
CPT/HCPCS: C9803; U0003; U0005

== ENCOUNTER 2021-11-26 01:49 | Day surgery (SDC) | payer MEDICARE, MEDICAID, SELFPAY ==
[2021-10-15 13:12] VITALS: BMI 25.4
[2021-11-15 10:05] VITALS: BMI 25.4
[2021-11-26 09:36] VITALS: BP 113/68; PULSE 86; RESP 18; TEMP 36.1; O2SAT 94; BMI 24.5
--- NOTE | 2021-11-26 09:36 | WPDGICN ---
Assessment and Plan Assessment and plan (1) History of colon polyps: Code(s): Z86.010 - Personal history of colonic polyps Status: Acute Assessment and Plan: Patient has a history of adenomatous colon polyp removed from the colon 2014, additionally family history of colon cancer in her grandfather. Further recommendations will be given after endoscopy. GI Consult Note Consult date/time: 11/26/21 09:36 HPI: Xochitl Galdamez is a 61 year old female Presents for screening colonoscopy. Patient has a history of adenomatous colon polyp removed from the colon in the past. Most recently 2014. She states her current weight appetite and bowel movements are normal. She denies abdominal pain. She denies any bleeding. Family history is significant her paternal grandfather with colon cancer. Review of Systems Review of Systems: All systems reviewed & are unremarkable except as noted in HPI and below PMFSH Past Medical History Medical History Anxiety Arthritis COPD (chronic obstructive pulmonary disease) Depression Fibromyalgia History of emphysema HLD (hyperlipidemia) HTN (hypertension) IDDM (insulin dependent diabetes mellitus) Poorly controlled Shingles Surgical History Surgical History H/O cardiac catheterization H/O: hysterectomy Laparoscopic hysterectomy with bilateral salpingo-oophorectomy August 2011 due to dysfunctional uterine bleeding urine and uterine polyps History of bladder surgery Repair of injury associated with laparoscopic hysterectomy performed at the same time as the hysterectomy History of x2 Hx of abdominoplasty Labial abscess Family History Family History (Updated 09/11/19 @ 22:05 by Krysten Benitez RN) Father High cholesterol Diabetes mellitus Cerebrovascular accident Sibling Diabetes mellitus Mother Hypertension Social History Social History (Updated 09/12/19 @ 07:46 by Aminata Orta DO) Social History: The patient lives in her own home and has a large dog who is 12 years. Her grandchildren come over on the weekends and stay with her. She has 2 children who are reportedly healthy. She quit smoking 1 year ago prior to quitting she smoked 1 pack per day since she was 14 years old. She rarely drinks alcohol. She is on disability due to fibromyalgia, and arthritis. The patient's primary care physician is Dr. Magdalena Orlando. Code status is full code. Smoking packs per day: 1.5 Smoking cigarettes per day: 30.0 Years smoked: 47 Smoking pack-years: 70.50 Smoking status: Former smoker Tobacco type: cigarettes Additional smoking assessment comments: CURRENTLY VAPING Alcohol intake: never Substance use: never Substance use type: does not use Living arrangements: with family Gender identity (if verbalized by the patient): Female Spiritual care concerns: No Agree to blood products: Yes Meds Home Medications and Allergies Home Medications Medication Instructions Recorded Confirmed Type Byetta 10 mcg SUBCUT BID 09/11/19 10/15/21 History Levemir FlexTouch U-100 Insuln See Rx Instructions .ROUTE .COMPLEX 09/11/19 10/15/21 History albuterol sulfate [ProAir HFA] 2 puff INHALATION QID PRN 09/11/19 10/15/21 History amitriptyline 25 mg PO DAILY 09/11/19 10/15/21 History atorvastatin 80 mg PO DAILY 09/11/19 10/15/21 History budesonide-formoterol [Symbicort] 2 puff INHALATION Q12H 09/11/19 10/15/21 History buprenorphine 5 mcg TRANSDERMAL WEEKLY 09/11/19 10/15/21 History bupropion HCl 150 mg PO DAILY 09/11/19 10/15/21 History ibuprofen 800 mg PO TID PRN 09/11/19 10/15/21 History omeprazole 40 mg PO DAILY 09/11/19 10/15/21 History aspirin 81 mg PO DAILY 10/15/21 10/15/21 History calcium carbonate 250 mg PO DAILY PRN 10/15/21 10/15/21 History diltiazem HCl 120 mg PO DAILY 10/15/21 10/15/21 History fluticasone pro
[2021-11-26] MEDS: LACTATED RINGERS 1,000 ML 150 ML IV CONT (09:49)
[2021-11-26 09:54] LABS: Glucose Point of Care 123 mg/dl (65-105)
[2021-11-26 10:23] VITALS: BP 84/47; PULSE 80; RESP 20; O2SAT 97
[2021-11-26 10:33] VITALS: BP 91/56; PULSE 80; RESP 17; O2SAT 98
[2021-11-26 10:41] LABS: Glucose Point of Care 111 mg/dl (65-105)
[2021-11-26 10:43] VITALS: BP 104/68; PULSE 74; RESP 21; O2SAT 97
== END 2021-11-26 10:44 | disposition home or self-care (01) ==
PROVIDERS: PCP Family Medicine; Visit Provider Internal Medicine Gastroenterology
PROC: 0DJD8ZZ Inspection of Lower Intestinal Tract, Via Natural or Artificial Opening Endoscopic (ICD-10-PCS; CPT 45378; principal; 2021-11-26 10:30)
DX: Z12.11 Encounter for screening for malignant neoplasm of colon (principal); K57.30 Diverticulosis of large intestine without perforation or abscess without bleeding; Z80.0 Family history of malignant neoplasm of digestive organs; Z86.010 Personal history of colon polyps; F41.8 Other specified anxiety disorders; J44.9 Chronic obstructive pulmonary disease, unspecified; M19.90 Unspecified osteoarthritis, unspecified site; M79.7 Fibromyalgia; I10 Essential (primary) hypertension; E11.9 Type 2 diabetes mellitus without complications; E78.5 Hyperlipidemia, unspecified; Z79.82 Long term (current) use of aspirin; Z79.51 Long term (current) use of inhaled steroids
CPT/HCPCS: G0105; 82948; J2704; J7120

== ENCOUNTER 2022-01-11 15:16 | Outpatient (CLI) | payer MEDICARE, MEDICAID, SELFPAY ==
--- NOTE | ~2022-01-11 | MM_ITS ---
EXAMINATION: MM screening rox BI w ketty HISTORY: Screening mammogram TECHNIQUE: Craniocaudal and mediolateral oblique 3-D tomosynthesis images were obtained and synthetic 2-D images were generated. CAD analysis was submitted and interpreted. COMPARISON: December 01, 2020, September 29, 2019, July 21, 2018 bilateral screening mammogram exami [place] BREAST PARENCHYMAL COMPOSITION: The breasts are almost entirely fatty. FINDINGS: There is no evidence of suspicious mass, calcification, or architectural distortion to sugg est malignancy in either breast. There has been no suspicious interval change. IMPRESSION: 1. No mammographic evidence of malignancy. 2. Recommend routine screening mammography in one year. BI-RADS Category 1: Negative Reviewed, dictated and finalized at location A.
== END 2022-01-11 15:17 | disposition home or self-care (01) ==
LOC: ANHIMG 15:19
PROVIDERS: PCP Family Medicine; Visit Provider Family Medicine
DX: Z12.31 Encounter for screening mammogram for malignant neoplasm of breast (principal)
CPT/HCPCS: 77063; 77067

== ENCOUNTER 2022-10-01 13:18 | Outpatient (CLI) | payer MEDICARE, MEDICAID, SELFPAY ==
--- NOTE | ~2022-10-01 | CT_ITS ---
EXAMINATION: CT lung screening DATE: 10/01/2022 13:47 INDICATION: NICOTINE DEPENDENCE TECHNIQUE: Computed tomography (CT) of the chest was performed without intravenous contrast. Addition al 3D reconstructions utilizing coronal maximum intensity projection (MIP) were performed. Automated exposure control and iterative reconstruction technique were employed. The dose-length product was 72 .33 mGy-cm. COMPARISON: None FINDINGS: Mild emphysema. Discoid atelectasis in the right middle lobe and lingula. Additional minimal discoid atelectasis/scarring at the periphery of the bilateral apices of the upper lobes. Minimal eccentric w all thickening measuring up to 2 mm in thickness at the periphery of a new 6 mm cavitary nodule at th e junction of the left upper lobe and lingula. There are also multiple new small nodules in the right upper lobe, the largest measuring 5 mm. 9 mm groundglass nodule in the left upper lobe.. Small calci fied nodules in the bilateral lower lobes, calcified right hilar and mediastinal lymph nodes, a few s mall hepatic and splenic calcific lesions and calcified portacaval lymph nodes, all consistent with o ld granulomatous disease. No pneumonia, pulmonary edema or pleural effusion. Heart size is normal. No pericardial effusion. Thoracic aorta is normal in caliber. No pathologically enlarged thoracic lymph adenopathy. Diffuse hepatic steatosis with focal sparing along the gallbladder fossa. Subtle increase d attenuation in the dependent aspect of the otherwise normal gallbladder which could represent sludg e or gallstones. Severe upper thoracic spondylosis. IMPRESSION: 1. Lung-RADS category 3: Probably benign. Further evaluation is recommended with noncontrast low-dose chest CT in 6 months. 2. Mild emphysema. 3. Diffuse hepatic steatosis. 4. Sludge versus gallstones in the dependent otherwise normal gallbladder. Reviewed, dictated and finalized at location L. ICATION SPECIALIST IMPRESSION: 1. Lung-RADS category 3: Probably benign. Further evaluation is recommended wit h noncontrast low-dose chest CT in 6 months. 2. Mild emphysema. 3. Diffuse hepatic steatosis. 4. Sludge versus gallstones in the dependent otherwise normal gallbladder.
== END 2022-10-01 13:19 | disposition home or self-care (01) ==
PROVIDERS: PCP Family Medicine; Visit Provider Family Medicine
DX: Z12.2 Encounter for screening for malignant neoplasm of respiratory organs (principal); Z87.891 Personal history of nicotine dependence; J43.9 Emphysema, unspecified; K76.0 Fatty (change of) liver, not elsewhere classified
CPT/HCPCS: 71271

== ENCOUNTER 2023-05-01 11:42 | Emergency (ER) | payer MEDICARE, MEDICAID, SELFPAY ==
[2023-05-01] VITALS (43 sets, daily range): BP systolic 91–130; BP diastolic 64–86; PULSE 89–99; RESP 14–25; TEMP 36.3–36.6; O2SAT 90–99
--- NOTE | 2023-05-01 11:48 | ECG_ITS ---
Measurements Intervals [place] Rate: 99 P: 66 [place]: 148 QRS: 32 QRSD: 94 T: 56 QT: 333 QTc: 428 Interpretive Statements SINUS RHYTHM INCOMPLETE RIGHT BUNDLE BRANCH BLOCK BORDERLINE ECG COMPARED TO ECG 09/13/2019 10:26:21 NO SIGNIFICANT CHANGES Electronically Signed On 05-01-2023 13:11:29 CDT by Justin Cardona D.O.
[2023-05-01 12:07] LABS: Glucose Point of Care 122 mg/dl (65-105)
[2023-05-01 12:16] LABS: Alanine Aminotransferase 34 U/L (6-35); Albumin Level 4.5 g/dL (3.5-5.1); Alkaline Phosphatase 98 U/L (38-126); Anion Gap 6 mmol/L (8-16); Aspartate Amino Transferase 35 U/L (14-36); Bilirubin,Total 0.5 mg/dL (0.2-1.3); Blood Urea Nitrogen 43 mg/dL (7-17); Calcium 13.6 mg/dL (8.4-10.2); Carbon Dioxide 33 mmol/L (22-30); Chloride 101 mmol/L (98-107); Estimated CRCL calculation 29 ml/min; Estimated Glomerular Filt Rate 38; Glucose 103 mg/dL (65-110); Potassium 3.8 mmol/L (3.4-5.0); Sodium 140 mmol/L (137-145)
[2023-05-01 12:19] LABS: Basophils Percent Auto 0.4 % (0.2-1.2); Eosinophils Absolute Auto 0.3 K/mm3 (0-0.3); Eosinophils Percent Auto 3.3 % (0-4.4); Hematocrit 43.5 % (37.0-47.0); Hemoglobin 14.1 g/dL (12.0-15.0); Immature Granulocyte Absolute 0.03 K/mm3 (0.00-0.031); Immature Granulocyte Percent A 0.3 % (0-0.5); Lymphocytes Absolute Auto 2.56 K/mm3 (0.9-3.2); Lymphocytes Percent Auto 26.7 % (18.3-44.2); Mean Corpuscular HGB Conc 32.4 g/dl (32-36); Mean Corpuscular Hemoglobin 29.4 pg (26-34); Mean Corpuscular Volume 90.6 fl (80-100); Mean Platelet Volume 10.1 fl (7.4-10.4); Monocytes Absolute Auto 0.9 K/mm3 (0.1-0.6); Monocytes Percent Auto 8.9 % (2.6-8.5); Neutrophils Absolute Auto 5.8 K/mm3 (1.3-6.7); Neutrophils Percent Auto 60.4 % (45.5-73.1); Platelet Count Result 288 k/mm3 (150-375); Red Cell Distribution Width 13.2 % (11.5-14.5); White Blood Count 9.6 K/mm3 (4.5-10.0)
--- NOTE | 2023-05-01 13:11 | ED.GENADULT ---
HPI - General Adult General Chief complaint: Recheck/Abnormal Lab/Rx Stated complaint: high calcium level Time Seen by Provider: 05/01/23 12:37 History of Present Illness HPI narrative: Patient is a 62-year-old female who presents ER with abnormal outpatient lab work. Reports over the last 2 days she has been having dizziness when going from sitting to standing. She contacted her PCP and had outpatient lab work performed yesterday. It returned today and she had an elevated calcium level of 15. She has had no body aches. She reports she took some Tums for acid reflux last night and the night before but she only took 2 tablets and has not been taking that regularly. Reports normal food and fluid intake. No fevers or chills or sweats. No inadvertent weight loss. No history of malignancy. Denies any increased depression. No flank pain or burning urination. Related Data Home Medications Medication Instructions Recorded Confirmed albuterol sulfate 90 mcg/actuation 2 puff inhalation QID PRN 09/11/19 10/15/21 aerosol inhaler (ProAir HFA) Shortness Of Breath amitriptyline 25 mg tablet 25 mg PO DAILY 09/11/19 10/15/21 atorvastatin 80 mg tablet 80 mg PO DAILY 09/11/19 10/15/21 budesonide-formoterol HFA 160 2 puff inhalation Q12H 09/11/19 10/15/21 mcg-4.5 mcg/actuation aerosol inhaler (Symbicort) buprenorphine 5 mcg/hour weekly 5 mcg transdermal WEEKLY 09/11/19 10/15/21 transdermal patch bupropion HCl 75 mg tablet 150 mg PO DAILY 09/11/19 10/15/21 exenatide 10 mcg/dose(250 10 mcg subcut BID 09/11/19 10/15/21 mcg/mL)2.4 mL subcutaneous pen injector (Byetta) ibuprofen 800 mg tablet 800 mg PO TID PRN Back Pain 09/11/19 10/15/21 insulin detemir U-100 100 unit/mL See Rx Instructions .Route .COMPLEX 09/11/19 10/15/21 (3 mL) subcutaneous pen (Levemir FlexTouch U-100 Insulin) omeprazole 40 mg capsule,delayed 40 mg PO DAILY 09/11/19 10/15/21 release aspirin 81 mg capsule 81 mg PO DAILY 10/15/21 10/15/21 calcium carbonate 250 mg calcium 250 mg PO DAILY PRN Acid Reflux 10/15/21 10/15/21 (625 mg) tablet diltiazem HCl 120 mg 120 mg PO DAILY 10/15/21 10/15/21 capsule,extended release 24 hr fluticasone propionate 50 1 spray intranasal DAILY 10/15/21 10/15/21 mcg/actuation nasal spray,suspension krill 1 cap PO DAILY 10/15/21 10/15/21 [id number]-ohsjhcygntrug 300 mg-90 mg-24 mg-50 mg capsule (krill oil) lactobacillus combination no.8 3 1 cell PO DAILY 10/15/21 10/15/21 billion cell capsule metoprolol succinate 100 mg 100 mg PO DAILY 10/15/21 10/15/21 tablet,extended release 24 hr multivitamin with minerals-folic 1 tablet PO DAILY 10/15/21 10/15/21 acid 0.4 mg tablet psyllium husk 0.52 gram capsule 0.52 g PO DAILY 10/15/21 10/15/21 (Fiber-Caps (psyllium husk)) Allergies Allergy/AdvReac Type Severity Reaction Status Date / Time No Known Allergies Allergy Unknown Verified 11/26/21 09:34 Review of Systems Review of Systems: All systems reviewed & are unremarkable except as noted in HPI and below Constitutional: Constitutional: Denies chills, Denies fatigue and Denies fever(s) ENT: Denies nasal congestion and Denies sore throat Cardiovascular: Cardiovascular: Denies chest pain, Denies rapid heart rate and Denies radiating jaw, neck or arm pain Respiratory: Respiratory: Denies cough and Denies dyspnea Gastrointestinal: Gastrointestinal: Denies abdominal pain, Denies nausea and Denies vomiting Genitourinary: Genitourinary: Denies hematuria, Denies nocturia and Denies dysuria Musculoskeletal: Musculoskeletal: Denies myalgias, Denies arthralgias and Denies joint swelling Neurologic: Reports dizziness, Denies syncope, Denies focal weakness and Denies numbness PMFSH Past Medical History Medical History Anxiety Arthritis COPD (chronic obstructive pulmonary disease) Depression Fibromyalgia History of emphysema HLD (hyperlipid
[2023-05-01] MEDS: SODIUM CHLORIDE 0.9% IV 1,000 ML 999 ML IV CONT ×2 (13:19→16:42)
[2023-05-01 14:11] LABS: Parathyroid Intact 10.9 pg/mL (7.5-53.5)
[2023-05-01 18:17] LABS: Anion Gap 5 mmol/L (8-16); Blood Urea Nitrogen 31 mg/dL (7-17); Calcium 8.8 mg/dL (8.4-10.2); Carbon Dioxide 22 mmol/L (22-30); Chloride 113 mmol/L (98-107); Estimated CRCL calculation 50 ml/min; Estimated Glomerular Filt Rate > 60; Glucose 61 mg/dL (65-110); Potassium 2.8 mmol/L (3.4-5.0); Sodium 140 mmol/L (137-145)
[2023-05-01] MEDS: POTASSIUM CHLORIDE 20 MEQ PACKET (FOR LIQUID) 40 MEQ PO (18:50)
[2023-05-09 14:58] LABS: Parathyroid Hormone Related Pr 9 pg/mL (11-20)
== END 2023-05-01 19:29 | disposition home or self-care (01) ==
PROVIDERS: Emergency Medicine; Emergency Provider Emergency Medicine; PCP Family Medicine
DX: E86.0 Dehydration (principal); E83.52 Hypercalcemia; E87.6 Hypokalemia; J43.9 Emphysema, unspecified; E78.5 Hyperlipidemia, unspecified; I10 Essential (primary) hypertension; E11.9 Type 2 diabetes mellitus without complications; Z87.891 Personal history of nicotine dependence
CPT/HCPCS: 36415; 80048; 80053; 82948; 83519; 83970; 85025; 93005; 96360; 96361; 99283; A9270; J7030

== ENCOUNTER 2023-05-15 10:03 | Outpatient (CLI) | payer MEDICARE, MEDICAID, SELFPAY ==
--- NOTE | ~2023-05-15 | MM_ITS ---
EXAMINATION: MM screening rox BI w ketty HISTORY: Screening mammogram TECHNIQUE: Craniocaudal and mediolateral oblique 3-D tomosynthesis images were obtained and synthetic 2-D images were generated. CAD analysis was submitted and interpreted. COMPARISON: January 11, 2022, December 01, 2020, September 29, 2019 bilateral screening mammogram examina tions BREAST PARENCHYMAL COMPOSITION: The breasts are almost entirely fatty. FINDINGS: There is no evidence of suspicious mass, calcification, or architectural distortion to sugg est malignancy in either breast. There has been no suspicious interval change. IMPRESSION: 1. No mammographic evidence of malignancy. 2. Recommend routine screening mammography in one year. BI-RADS Category 1: Negative Reviewed, dictated and finalized at location A.
== END 2023-05-15 10:04 | disposition home or self-care (01) ==
PROVIDERS: PCP Family Medicine; Visit Provider Family Medicine
DX: Z12.31 Encounter for screening mammogram for malignant neoplasm of breast (principal)
CPT/HCPCS: 77063; 77067

== ENCOUNTER 2023-12-10 04:35 | Emergency (ER) | payer MEDICARE, MEDICAID, SELFPAY ==
[2023-12-10 04:38] VITALS: BP 150/79; PULSE 104; RESP 15; TEMP 35.9; O2SAT 94
--- NOTE | 2023-12-10 04:51 | PC.NURSE ---
Fluorescein and Tetracaine pulled from [facility] for EDP Dr. Cooley. Urias lamp and eye tray along with medication placed at bedside. EDP made aware.
[2023-12-10] MEDS: FLUORESCEIN SOD 1 MG/STRIP EACH EYE (04:52)
[2023-12-10] MEDS: TETRACAINE HCL 0.5% OPHTH SOLN 4 ML BTL 1 DROP EACH EYE (04:53)
--- NOTE | 2023-12-10 04:58 | ED.GENADULT ---
HPI - General Adult General Chief complaint: Eye Problems Stated complaint: foreign body in eye Time Seen by Provider: 12/10/23 04:46 History of Present Illness HPI narrative: Patient 63-year-old female who presents emergency department chief complaint of left eye irritation. Patient reports that she was cleaning things around the house and started having irritation left eye. The patient reports that it feels though there is something in her eye patient states she was not using anything that she thinks could given your eye is unsure of her last tetanus status. Related Data Home Medications Medication Instructions Recorded Confirmed albuterol sulfate 90 mcg/actuation 2 puff inhalation QID PRN 09/11/19 10/15/21 aerosol inhaler (ProAir HFA) Shortness Of Breath amitriptyline 25 mg tablet 25 mg PO DAILY 09/11/19 10/15/21 atorvastatin 80 mg tablet 80 mg PO DAILY 09/11/19 10/15/21 budesonide-formoterol HFA 160 2 puff inhalation Q12H 09/11/19 10/15/21 mcg-4.5 mcg/actuation aerosol inhaler (Symbicort) buprenorphine 5 mcg/hour weekly 5 mcg transdermal WEEKLY 09/11/19 10/15/21 transdermal patch bupropion HCl 75 mg tablet 150 mg PO DAILY 09/11/19 10/15/21 exenatide 10 mcg/dose(250 10 mcg subcut BID 09/11/19 10/15/21 mcg/mL)2.4 mL subcutaneous pen injector (Byetta) ibuprofen 800 mg tablet 800 mg PO TID PRN Back Pain 09/11/19 10/15/21 insulin detemir U-100 100 unit/mL See Rx Instructions .Route .COMPLEX 09/11/19 10/15/21 (3 mL) subcutaneous pen (Levemir FlexTouch U-100 Insulin) omeprazole 40 mg capsule,delayed 40 mg PO DAILY 09/11/19 10/15/21 release aspirin 81 mg capsule 81 mg PO DAILY 10/15/21 10/15/21 calcium carbonate 250 mg calcium 250 mg PO DAILY PRN Acid Reflux 10/15/21 10/15/21 (625 mg) tablet diltiazem HCl 120 mg 120 mg PO DAILY 10/15/21 10/15/21 capsule,extended release 24 hr fluticasone propionate 50 1 spray intranasal DAILY 10/15/21 10/15/21 mcg/actuation nasal spray,suspension krill 1 cap PO DAILY 10/15/21 10/15/21 [id number]-wu-0-xkn-tgv-ikwbojrvdqtcs 300 mg-90 mg-24 mg-50 mg capsule (krill oil) lactobacillus combination no.8 3 1 cell PO DAILY 10/15/21 10/15/21 billion cell capsule metoprolol succinate 100 mg 100 mg PO DAILY 10/15/21 10/15/21 tablet,extended release 24 hr multivitamin with minerals-folic 1 tablet PO DAILY 10/15/21 10/15/21 acid 0.4 mg tablet psyllium husk 0.52 gram capsule 0.52 g PO DAILY 10/15/21 10/15/21 (Fiber-Caps (psyllium husk)) Allergies Allergy/AdvReac Type Severity Reaction Status Date / Time No Known Allergies Allergy Unknown Verified 12/10/23 04:51 Review of Systems Review of Systems: A 10 system review of systems was completed on the patient and is negative except for what is stated in the HPI. Nursing and ancillary documentation was reviewed. [facility] Past Medical History Medical History Anxiety Arthritis COPD (chronic obstructive pulmonary disease) Depression Fibromyalgia History of emphysema HLD (hyperlipidemia) HTN (hypertension) IDDM (insulin dependent diabetes mellitus) Poorly controlled Shingles Surgical History Surgical History H/O cardiac catheterization H/O: hysterectomy Laparoscopic hysterectomy with bilateral salpingo-oophorectomy August 2011 due to dysfunctional uterine bleeding urine and uterine polyps History of bladder surgery Repair of injury associated with laparoscopic hysterectomy performed at the same time as the hysterectomy History of x2 Hx of abdominoplasty Labial abscess Family History Family History Father High cholesterol Diabetes mellitus Cerebrovascular accident Sibling Diabetes mellitus Mother Hypertension Social History Social History (Reviewed 12/10/23 @ 05:00 by Julian Rajput
[2023-12-10] MEDS: TETANUS,DIPHTHERIA,AC PERTUSSIS ADULT (0.5 ML) BOOSTRIX IM (05:11)
[2023-12-10 05:15] VITALS: BP 123/90; PULSE 99; RESP 20; O2SAT 99
== END 2023-12-10 05:17 | disposition home or self-care (01) ==
LOC: ANHED 05:14
PROVIDERS: Emergency Provider Emergency Medicine; PCP Family Medicine
DX: S05.02XA Injury of conjunctiva and corneal abrasion without foreign body, left eye, initial encounter (principal); Z23 Encounter for immunization; J44.9 Chronic obstructive pulmonary disease, unspecified; I10 Essential (primary) hypertension; E78.5 Hyperlipidemia, unspecified; E11.9 Type 2 diabetes mellitus without complications; M79.7 Fibromyalgia; M19.90 Unspecified osteoarthritis, unspecified site; F17.290 Nicotine dependence, other tobacco product, uncomplicated; Z90.710 Acquired absence of both cervix and uterus; Z79.4 Long term (current) use of insulin; Z79.82 Long term (current) use of aspirin; X58.XXXA Exposure to other specified factors, initial encounter
CPT/HCPCS: 90471; 90715; 99283

== ENCOUNTER 2023-12-11 12:07 | Emergency (ER) | payer MEDICARE, MEDICAID, SELFPAY ==
[2023-12-11 12:11] VITALS: BP 122/78; PULSE 112; RESP 18; TEMP 36.4; O2SAT 95
[2023-12-11] MEDS: TETRACAINE HCL 0.5% 1 DROP LEFT EYE (13:30)
--- NOTE | 2023-12-11 14:53 | ED.EYEPROB ---
HPI - Eye Problem General Chief complaint: Eye Problems Stated complaint: left eye pain Time Seen by Provider: 12/11/23 13:12 History of Present Illness HPI Narrative: This is a 63-year-old female, seen in this emergency department yesterday and diagnosed with left corneal abrasion, who presents the emergency department complaining of persistent pain. The patient states despite using eyedrops prescribed here, she continues to have a foreign object sensation in the left eye and photophobia, rated 7/10. She has no other complaints at this time. Related Data Home Medications Medication Instructions Recorded Confirmed albuterol sulfate 90 mcg/actuation 2 puff inhalation QID PRN 09/11/19 10/15/21 aerosol inhaler (ProAir HFA) Shortness Of Breath amitriptyline 25 mg tablet 25 mg PO DAILY 09/11/19 10/15/21 atorvastatin 80 mg tablet 80 mg PO DAILY 09/11/19 10/15/21 budesonide-formoterol HFA 160 2 puff inhalation Q12H 09/11/19 10/15/21 mcg-4.5 mcg/actuation aerosol inhaler (Symbicort) buprenorphine 5 mcg/hour weekly 5 mcg transdermal WEEKLY 09/11/19 10/15/21 transdermal patch bupropion HCl 75 mg tablet 150 mg PO DAILY 09/11/19 10/15/21 exenatide 10 mcg/dose(250 10 mcg subcut BID 09/11/19 10/15/21 mcg/mL)2.4 mL subcutaneous pen injector (Byetta) ibuprofen 800 mg tablet 800 mg PO TID PRN Back Pain 09/11/19 10/15/21 insulin detemir U-100 100 unit/mL See Rx Instructions .Route .COMPLEX 09/11/19 10/15/21 (3 mL) subcutaneous pen (Levemir FlexTouch U-100 Insulin) omeprazole 40 mg capsule,delayed 40 mg PO DAILY 09/11/19 10/15/21 release aspirin 81 mg capsule 81 mg PO DAILY 10/15/21 10/15/21 calcium carbonate 250 mg calcium 250 mg PO DAILY PRN Acid Reflux 10/15/21 10/15/21 (625 mg) tablet diltiazem HCl 120 mg 120 mg PO DAILY 10/15/21 10/15/21 capsule,extended release 24 hr fluticasone propionate 50 1 spray intranasal DAILY 10/15/21 10/15/21 mcg/actuation nasal spray,suspension krill 1 cap PO DAILY 10/15/21 10/15/21 [id number]-[id number]-pey-[id number] 300 mg-90 mg-24 mg-50 mg capsule (krill oil) lactobacillus combination no.8 3 1 cell PO DAILY 10/15/21 10/15/21 billion cell capsule metoprolol succinate 100 mg 100 mg PO DAILY 10/15/21 10/15/21 tablet,extended release 24 hr multivitamin with minerals-folic 1 tablet PO DAILY 10/15/21 10/15/21 acid 0.4 mg tablet psyllium husk 0.52 gram capsule 0.52 g PO DAILY 10/15/21 10/15/21 (Fiber-Caps (psyllium husk)) Allergies Allergy/AdvReac Type Severity Reaction Status Date / Time No Known Allergies Allergy Unknown Verified 12/11/23 12:07 Review of Systems Review of Systems: CONSTITUTIONAL: Denies fever, chills, or sweats. EYES: Left eye pain and blurred vision Denies redness, or discharge. ENT: Denies rhinorrhea, congestion, sore throat, or otalgia. CARDIOVASCULAR: Denies chest pain, palpitations, or edema. RESPIRATORY: Denies cough or dyspnea. GASTROINTESTINAL: Denies abdominal pain, nausea, vomiting, or diarrhea. GENITOURINARY: Denies dysuria or hematuria. MUSCULOSKELETAL: Denies back pain, joint pain, or myalgia. NEUROLOGIC: Denies headache, numbness, dizziness, or weakness. PSYCHIATRIC: Denies anxiety or depression. [facility] Past Medical History Medical History Anxiety Arthritis COPD (chronic obstructive pulmonary disease) Depression Fibromyalgia History of emphysema HLD (hyperlipidemia) HTN (hypertension) IDDM (insulin dependent diabetes mellitus) Poorly controlled Shingles Surgical History Surgical History H/O cardiac catheterization H/O: hysterectomy Laparoscopic hysterectomy with bilateral salpingo-oophorectomy August 2011 due to dysfunctional uterine bleeding urine and uterine polyps History of bladder surgery Repair of injury associated with laparoscopic hysterectomy performed at the same time as the hysterectom
[2023-12-11] MEDS: FLUORESCEIN SOD 1 MG/STRIP LEFT EYE (15:00)
[2023-12-11 15:23] VITALS: BP 123/72; PULSE 67; RESP 15; O2SAT 100
== END 2023-12-11 15:26 | disposition home or self-care (01) ==
PROVIDERS: Emergency Provider Preventive Medicine Aerospace Medicine; PCP Family Medicine
DX: S05.02XA Injury of conjunctiva and corneal abrasion without foreign body, left eye, initial encounter (principal); E78.5 Hyperlipidemia, unspecified; I10 Essential (primary) hypertension; J43.9 Emphysema, unspecified; M79.7 Fibromyalgia; M19.90 Unspecified osteoarthritis, unspecified site; F41.9 Anxiety disorder, unspecified; F32.A Depression, unspecified; F17.290 Nicotine dependence, other tobacco product, uncomplicated; Z90.710 Acquired absence of both cervix and uterus; Z90.722 Acquired absence of ovaries, bilateral; Z90.79 Acquired absence of other genital organ(s); Z79.4 Long term (current) use of insulin; Z79.82 Long term (current) use of aspirin; X58.XXXA Exposure to other specified factors, initial encounter
CPT/HCPCS: 99283

== ENCOUNTER 2024-06-11 15:53 | Outpatient (CLI) | payer MEDICARE, MEDICAID, SELFPAY ==
--- NOTE | ~2024-06-11 | CT_ITS ---
EXAMINATION:CT lung screening DATE: 06/11/2024 16:11 INDICATION: Personal history of nicotine dependence. Smoker who quit 6 years ago with 40 pack year hi story. TECHNIQUE: Computed tomography (CT) of the chest was performed without intravenous contrast. Automate d exposure control and iterative reconstruction technique were employed. The dose-length product (DLP ) was 77.74 mGy-cm. COMPARISON: Chest CT 10/01/2022 FINDINGS: Lungs demonstrate mild enlargement edema. There is mild atelectasis. There is an 8 mm groun dglass nodule in left upper lobe. There is a 3 mm nodule at minor fissure. A calcified right lung nod ule and calcified right hilar lymph nodes are consistent with old granulomatous disease. There is a 3 mm nodule in left upper lobe. There is a 3 mm nodule in left lower lobe. No pleural effusion. The he art size is normal. There are coronary artery calcifications. No pericardial effusion. There is a sma ll sliding hiatal hernia. Calcifications in the spleen are consistent with old granulomatous disease. There is diffuse hepatic steatosis. There is severe thoracic spondylosis. IMPRESSION: 1. Lung-RADS category 2: Benign appearance or behavior. Continue annual screening with noncontrast lo w-dose chest CT in 12 months. Reviewed, dictated and finalized at location A. IMPRESSION: 1. Lung-RADS category 2: Benign appearance or behavior. Continue annual screeni ng with noncontrast low-dose chest CT in 12 months.
== END 2024-06-11 15:54 | disposition home or self-care (01) ==
LOC: ANHIMG 15:56
PROVIDERS: PCP Nurse Practitioner Family; Visit Provider Nurse Practitioner Family
DX: Z12.2 Encounter for screening for malignant neoplasm of respiratory organs (principal); R93.89 Abnormal findings on diagnostic imaging of other specified body structures; F17.210 Nicotine dependence, cigarettes, uncomplicated
CPT/HCPCS: 71271

== ENCOUNTER 2024-07-14 08:58 | Outpatient (CLI) | payer MEDICARE, MEDICAID, SELFPAY ==
--- NOTE | ~2024-07-14 | XR_ITS ---
Left Hand Technique: PA, oblique, and lateral views were obtained. Clinical History: Osteoarthritis Findings: No acute fracture or dislocation is seen. Osseous alignment is anatomic. There is advanced degenerative change of the first CMC joint.. Soft tissues are unremarkable. Impression: Advanced degenerative change of the first CMC joint. Reviewed, dictated and finalized at location . Impression: Advanced degenerative change of the first CMC joint.
--- NOTE | ~2024-07-14 | XR_ITS ---
Right Hand Technique: PA, oblique, and lateral views were obtained. Clinical History: Osteoarthritis Findings: No acute fracture or dislocation is seen. Osseous alignment is anatomic. There is mild dege nerative change of the first MCP joint. Soft tissues are unremarkable. Impression: Mild degenerative change of the first MCP joint. Reviewed, dictated and finalized at location . Impression: Mild degenerative change of the first MCP joint.
== END 2024-07-14 08:59 | disposition home or self-care (01) ==
LOC: ANHIMG 09:03
PROVIDERS: PCP Nurse Practitioner Family; Visit Provider Plastic Surgery
DX: M18.11 Unilateral primary osteoarthritis of first carpometacarpal joint, right hand (principal); M18.12 Unilateral primary osteoarthritis of first carpometacarpal joint, left hand
CPT/HCPCS: 73130

== ENCOUNTER 2024-10-15 14:32 | Outpatient (CLI) | payer MEDICARE, MEDICAID, SELFPAY ==
--- NOTE | ~2024-10-15 | MM_ITS ---
EXAMINATION: MM screening rox BI w ketty HISTORY: Screening mammogram TECHNIQUE: Craniocaudal and mediolateral oblique 3-D tomosynthesis images were obtained and synthetic 2-D images were generated. CAD analysis was submitted and interpreted. COMPARISON: 05/15/2023, 01/11/2022 bilateral screening mammogram examinations BREAST PARENCHYMAL COMPOSITION: The breasts are almost entirely fatty. FINDINGS: There is no evidence of suspicious mass, calcification, or architectural distortion to sugg est malignancy in either breast. There has been no suspicious interval change. IMPRESSION: 1. No mammographic evidence of malignancy. 2. Recommend routine screening mammography in one year. BI-RADS Category 1: Negative Reviewed, dictated and finalized at location A. [employer]
== END 2024-10-15 14:33 | disposition home or self-care (01) ==
LOC: ANHIMG 14:35
PROVIDERS: PCP Nurse Practitioner Family; Visit Provider Nurse Practitioner Family
DX: Z12.31 Encounter for screening mammogram for malignant neoplasm of breast (principal)
CPT/HCPCS: 77063; 77067

== ENCOUNTER 2024-12-14 17:21 | Outpatient (CLI) | payer MEDICARE, MEDICAID, SELFPAY | END 2024-12-14 17:22 | disposition home or self-care (01) | PROVIDERS: PCP Nurse Practitioner Family; Visit Provider Nurse Practitioner Family | DX: J06.9 Acute upper respiratory infection, unspecified (principal) | CPT/HCPCS: 71046 ==

== ENCOUNTER 2025-03-29 02:19 | Day surgery (SDC) | payer MEDICARE, MEDICAID, SELFPAY ==
[2025-03-14 15:05] VITALS: BMI 23.0
--- OUTSIDE RECORDS SUMMARY | 2025-03-29 02:22 | XMS_ITS | Data Portability ---
Author Organization [facility] [place], Main Office Address [address] [place] [id number] Care Team Providers Care Edi Architect Name Role Phone MAGDALENA ORLANDO Primary Care Provider [phone] Assessment No assessment recorded. Plan of Treatment Reminders Order Date Submit Date Provider Last Modified By Organization Details Last Modified Time Details Appointments Follow Up 15 2024 10:00A Alina Regan NP Not available Not available Not available Lab HbA1c (hemoglob in A1c), blood 2024 025 [facility], [address] , [place], [address], 01/27/2025 10:43:00 TSH, serum or plasma 2024 025 [facility], [address] , [place], [address], 01/27/2025 10:42:58 lipid panel, serum 2024 025 [facility], [address] , [place], [address], 01/27/2025 10:42:54 CMP, serum or plasma 2024 025 [facility], [address] , [place], [address], 01/27/2025 10:42:55 vitamin D, 25-hydrox y, total, serum 2024 025 [facility], [address] , [place], [address], 01/27/2025 10:42:59 CBC w/ auto diff 2024 025 [facility], [address], [place], [address], 01/27/2025 10:42:56 hepatitis C virus Ab, serum 2024 025 [facility], [address], [place], [address], 01/27/2025 10:42:57 calcium, ionized, blood 2023 024 [facility] (Lab), [address] [place], [address], 02/28/2024 18:57:04 vitamin D, 25-hydrox y, total, serum [id number] (Lab), [address] [place], [address], 03/02/2024 08:13:56 CBC w/ auto diff 2023 024 [facility] (Lab), [address] [place], [address], 02/24/2024 21:05:15 BMP, serum or plasma 2023 024 [facility] (Lab), [address] [place], [address], 02/24/2024 20:48:45 HbA1c (hemoglob in A1c), blood [id number] (Lab), [address] [place], [address], 03/02/2024 08:13:55 BMP, serum or plasma 2023 024 [facility] (Lab), [address] [place], [address], 02/24/2024 22:53:12 lipid panel, serum 2023 024 [facility] (Lab), [address] [place], [address], 02/24/2024 20:48:47 hepatic function panel, serum 2023 024 [facility] (Lab), [address] [place], [address], 02/24/2024 20:48:50 Referral pulmonolo gist referral - Please call patient to schedule an appointme nt. Thank you. 2024 025 [email or web address] Conner Diaz MD, [address] [place], [address], 02/02/2025 15:37:43 dermatolo gist referral - Please call patient to schedule an appointme nt. Thank you. 2023 024 [email or web address] Jody Weeks MD (Dermatology) , [address], [address], [place], [address], 09/15/2024 09:17:37 hand surgeon referral - Please call patient to schedule an appointme nt. Thank you. 2023 024 [email or web address] Renata De Jesus MD, [address], [address], [place], [address], 06/23/2024 08:56:27 Procedures None recorded. Surgeries None recorded. Imaging DEXA - Please call patient to schedule. 2024 025 [email or web address] [facility], [address], [place], [address], 02/28/2025 16:08:43 XR, chest 2024 025 [facility], [address], [address], [place], [address], 12/15/2024 09:35:29 MAMMO, screening , digital, bilateral - *Please call pt to schedule* [address] (Imaging), [address], [place], [address], 06/30/2024 09:00:01 LDCT, chest, for lung cancer screening - *Please call pt to schedule* 2023 024 [facility] (Imaging), [address], [place], [address], 06/12/2024 10:04:15 Medication Orders loratadin e 10 mg tablet 2024 025 [facility]16828, [address] [place], [place], [id number], 01/26/2025 09:10:50 fluticaso ne propionat e 50 mcg/actua tion nasal spray,jesus pension 2024 025 [facility] #54203, [address] [place] [address], [id number], 01/26/2025 09:10:48 prednison e 20 mg tablet 2024 025 [facility] #07290, [address] [place] [address], [id number], 12/14/2024 16:46:33 Zithromax Z-Tomer 250 mg tablet 2024 025 [facility], [address] [place], [place], [id number], 01/26/2025 08:40:22 Lantus Solostar U-100 Insulin 100 unit/mL (3 mL) subcutane ous pen [id number] [facility] #25150, [address] [place], [place], [id number], 08/17/2024 12:03:20 buprenorp adelita 5 mcg/hour weekly transderm al patch 2023 024 [facility] #39479, [address] [place] [place], [place], [id number], 08/17/2024 12:03:21 Symbicort 160 mcg-4.5 mcg/actua tion HFA aerosol inhaler 2023 [facility] #93725, [address] [place] [place], [place], [id number], 05/26/2024 10:59:14 Patient TargetsNo targets recorded. Patient Instructions Encounter Date Encounter Id Patient Instructions Last Modified By Organization Details Last Modified Time 01/26/2025 [id number] dementia rating scale-2* [email or web address] Not available 01/26/2025 09:09:38 multi-dimensiona l health assessment questionnaire* [email or web address] Not available 01/26/2025 09:09:39 Reason for Referral Hand Surgeon Referral for Pa in in right hand right hand pain/trigger finger, would like injections, Pt was referred by Dr. Thibodeaux Please call patient to schedule an appointment. Thank you. Referring Physician: Jasiel Cullen Family Medicine, Encounter Date: 05/26/2024 R And D Lab Technician Referral for S kin lesion Please call patient to schedule an appointment. Thank you. Referring Physician: Sarah Regan [facility], Encounter Date: 08/17/2024 Wine Master Referral for C hronic obstructive pulmonary disease Please call patient to schedule an appointment. Thank you. Referring Physician: Sarah Regan [facility], Encounter Date: 01/26/2025 Results Created Date Observation Date Name Description Value Unit Range Abnormal Flag Note LastModifiedBy Organization Detail LastModifiedTime 01/28/20 25 01/27/2025 LIPID PANEL (REFL ) cholesterol, total 137 mg/dL <200 normal Not Available [facility] [address] [address] [place], [address], 01/27/2025 10:42:54 01/28/2001/27/2025 LIPID PANEL (REFL ) HDL cholesterol 47 mg/dL > or = 50 low Not Available [facility] [address] [place], [address], 01/27/2025 10:42:54 01/28/20 25 01/27/2025 LIPID PANEL (REFL ) triglyceride s 164 mg/dL <150 high Not Available [facility] [address] [place], [address], 01/27/2025 10:42:54 01/28/20 25 01/27/2025 LIPID PANEL (REFL ) LDL-choleste rol 66 mg/dL _(constantin c) normal Refer ence range : <100 Mae able range <100 mg/dL for prima ry preve ntion ; <70 mg/dL for patie nts with CHD or diabe tic patie nts with > or = 2 CHD risk facto rs. LDL-C is now calcu lated using the Kathy ga-Hop kins guillerminau mindi n, which is a valid ated novel colleen ruiz r accur acy than the Fried regla equat ion in the estim ation of LDL-C . Kathy ga SS et al. ANATOLIY. 2013; 310(1 9): 2061- 2068 (http ://ed ucati on.Qu Clint TVbeats. com/f aq/FA Q164) Not Available [facility] [address] [place], [address], 01/27/2025 10:42:54 01/28/2001/27/2025 LIPID PANEL (REFL ) chol/HDLC ratio 2.9 (calc ) <5.0 normal Not Available [facility] [address] [place], [address], 01/27/2025 10:42:54 01/28/20 25 01/27/2025 LIPID PANEL (REFL ) non HDL cholesterol 90 mg/dL _(constantin c) <130 normal For patie nts with diabe jacqueline plus 1 major ASCVD risk facto r, treat ing to a non-H DL-C goal of <100 mg/dL (LDL- C of <70 mg/dL ) is matthewi elly roth optio n. Not Available [address] [place], [address], 01/27/2025 10:42:54 01/28/20 25 01/27/2025 COMPR EHENS BLAIR METAB OLIC PANEL glucose 212 mg/dL 65-99 high Fasti ng refer ence inter carlene For someo ne witho ut known diabe jacqueline, a gluco se value >125 mg/dL indic ates that they may have diabe jacqueline and this shoul d be confi rmed with a follo w-up test. Not Available [address] , [place], [address], 01/27/2025 10:42:55 01/28/20 25 01/27/2025 COMPR EHENS BLAIR METAB OLIC PANEL urea nitrogen (BUN) 12 mg/dL 7-25 normal Not Available [address] [address] [place], [address], 01/27/2025 10:42:55 01/28/20 25 01/27/2025 COMPR EHENS BLAIR METAB OLIC PANEL creatinine 0.80 mg/dL 0.50-1 .05 normal Not Available [facility] [address] [address] [place], [address], 01/27/2025 10:42:55 01/28/20 25 01/27/2025 COMPR EHENS BLAIR METAB OLIC PANEL eGFR 82 mL/mi n/1.7 3m2 > or = 60 normal Not Available [address] [address] [place], [address], 01/27/2025 10:42:55 01/28/20 25 01/27/2025 COMPR EHENS BLAIR METAB OLIC PANEL BUN/creatini ne ratio SEE NOTE: (calc ) 6-22 Not Repor meli: BUN and Creat inine are withi n refer ence range . Not Available [address], [address], 01/27/2025 10:42:55 01/28/20 25 01/27/2025 COMPR EHENS BLAIR METAB OLIC PANEL sodium 136 mmol/ L 135-14 6 normal Not Available [address], [address], 01/27/2025 10:42:55 01/28/20 25 01/27/2025 COMPR EHENS BLAIR METAB OLIC PANEL potassium 4.9 mmol/ L 3.5-5. 3 normal Not Available [address], [address], 01/27/2025 10:42:55 01/28/20 25 01/27/2025 COMPR EHENS BLAIR METAB OLIC PANEL chloride 98 mmol/ L 98-110 normal Not Available [address], [address], 01/27/2025 10:42:55 01/28/20 25 01/27/2025 COMPR EHENS BLAIR METAB OLIC PANEL carbon dioxide 29 mmol/ L 20-32 normal Not Available [address], [address], 01/27/2025 10:42:55 01/28/20 25 01/27/2025 COMPR EHENS BLAIR METAB OLIC PANEL calcium 9.4 mg/dL 8.6-10 .4 normal Not Available [address], [address], 01/27/2025 10:42:55 01/28/20 25 01/27/2025 COMPR EHENS BLAIR METAB OLIC PANEL protein, total 7.0 g/dL 6.1-8. 1 normal Not Available [address], [address], 01/27/2025 10:42:55 01/28/20 25 01/27/2025 COMPR EHENS BLAIR METAB OLIC PANEL albumin 4.2 g/dL 3.6-5. 1 normal Not Available [address], [address], 01/27/2025 10:42:55 01/28/20 25 01/27/2025 COMPR EHENS BLAIR METAB OLIC PANEL globulin 2.8 g/dL_ (calc ) 1.9-3. 7 normal Not Available [address], [address], 01/27/2025 10:42:55 01/28/20 25 01/27/2025 COMPR EHENS BLAIR METAB OLIC PANEL albumin/glob ulin ratio 1.5 (calc ) 1.0-2. 5 normal Not Available [address], [address], 01/27/2025 10:42:55 01/28/20 25 01/27/2025 COMPR EHENS BLAIR METAB OLIC PANEL bilirubin, total 0.5 mg/dL 0.2-1. 2 normal Not Available [address], [address], 01/27/2025 10:42:55 01/28/20 25 01/27/2025 COMPR EHENS BLAIR METAB OLIC PANEL alkaline phosphatase 117 U/L 37-153 normal Not Available [facility] [address], [address], 01/27/2025 10:42:55 01/28/20 25 01/27/2025 COMPR EHENS BLAIR METAB OLIC PANEL AST 65 U/L 10-35 high Not Available [address], [address], 01/27/2025 10:42:55 01/28/20 25 01/27/2025 COMPR EHENS BLAIR METAB OLIC PANEL ALT 55 U/L 6-29 high Not Available [address], [address], 01/27/2025 10:42:55 01/28/20 25 01/27/2025 CBC (INCL UDES DIFF/ PLT) white blood cell count 10.3 thous and/u L 3.8-10 .8 normal Not Available [address], [address], 01/27/2025 10:42:56 01/28/20 25 01/27/2025 CBC (INCL UDES DIFF/ PLT) red blood cell count 5.17 anat on/uL 3.80-5 .10 high Not Available [address], [address], 01/27/2025 10:42:56 01/28/20 25 01/27/2025 CBC (INCL UDES DIFF/ PLT) hemoglobin 14.9 g/dL 11.7-1 5.5 normal Not Available [address], [address], 01/27/2025 10:42:56 01/28/20 25 01/27/2025 CBC (INCL UDES DIFF/ PLT) hematocrit 46.2 % 35.0-4 5.0 high Not Available [address], [address], 01/27/2025 10:42:56 01/28/20 25 01/27/2025 CBC (INCL UDES DIFF/ PLT) MCV 89.4 fL 80.0-1 00.0 normal Not Available [address], [address], 01/27/2025 10:42:56 01/28/20 25 01/27/2025 CBC (INCL UDES DIFF/ PLT) MCH 28.8 pg 27.0-3 3.0 normal Not Available [address], [address], 01/27/2025 10:42:56 01/28/20 25 01/27/2025 CBC (INCL UDES DIFF/ PLT) MCHC 32.3 g/dL 32.0-3 6.0 normal For adult s, a sligh t decre ase in the calcu lated MCHC value (in the range of 30 to 32 g/dL) is most likel y not clini emmie signi austin t; devang er, it shoul d be inter prete d with cauti on in [facility] n with other red cell sesar eters and the patie nt's clini constantin condi tion. Not Available [address], [address], 01/27/2025 10:42:56 01/28/20 25 01/27/2025 CBC (INCL UDES DIFF/ PLT) RDW 13.8 % 11.0-1 5.0 normal Not Available [address], [address], 01/27/2025 10:42:56 01/28/20 25 01/27/2025 CBC (INCL UDES DIFF/ PLT) platelet count 299 thous and/u L 140-40 0 normal Not Available [address], [address], 01/27/2025 10:42:56 01/28/20 25 01/27/2025 CBC (INCL UDES DIFF/ PLT) MPV 10.9 fL 7.5-12 .5 normal Not Available [address], [address], 01/27/2025 10:42:56 01/28/20 25 01/27/2025 CBC (INCL UDES DIFF/ PLT) absolute neutrophils 6087 cells /uL 1500-7 800 normal Not Available [address], [address], 01/27/2025 10:42:56 01/28/20 25 01/27/2025 CBC (INCL UDES DIFF/ PLT) absolute lymphocytes 2946 cells /uL 850-39 00 normal Not Available [address], [address], 01/27/2025 10:42:56 01/28/20 25 01/27/2025 CBC (INCL UDES DIFF/ PLT) absolute monocytes 680 cells /uL 200-95 0 normal Not Available [address], [address], 01/27/2025 10:42:56 01/28/20 25 01/27/2025 CBC (INCL UDES DIFF/ PLT) absolute eosinophils 556 cells /uL 15-500 high Not Available [address], [address], 01/27/2025 10:42:56 01/28/20 25 01/27/2025 CBC (INCL UDES DIFF/ PLT) absolute basophils 31 cells /uL 0-200 normal Not Available [address], [address], 01/27/2025 10:42:56 01/28/20 25 01/27/2025 CBC (INCL UDES DIFF/ PLT) neutrophils 59.1 % normal Not Available [address], [address], 01/27/2025 10:42:56 01/28/20 25 01/27/2025 CBC (INCL UDES DIFF/ PLT) lymphocytes 28.6 % normal Not Available [address], [address], 01/27/2025 10:42:56 01/28/20 25 01/27/2025 CBC (INCL UDES DIFF/ PLT) monocytes 6.6 % normal Not Available [facility] [address] [address] [place], [address], 01/27/2025 10:42:56 01/28/20 25 01/27/2025 CBC (INCL UDES DIFF/ PLT) eosinophils 5.4 % normal Not Available [facility] [address] [place], [address], 01/27/2025 10:42:56 01/28/20 25 01/27/2025 CBC (INCL UDES DIFF/ PLT) basophils 0.3 % normal Not Available [facility] [address] [place], [address], 01/27/2025 10:42:56 01/28/2001/27/2025 HEPAT ITIS C AB W/REF L TO HCV RNA, QN, PCR hepatitis C antibody NON-RE ACTIVE non-re active normal HCV antib roland was non-r eacti ve. There is no labor atory evide nce of HCV infec tion. In most cases , no furth er actio n is requi red. Howev er, if recen t HCV expos ure is suspe cted, a test for HCV RNA (test code 31875 ) is sugge sted. For addit ional infor dariusz ga pleas e refer to http: //[facility] padmini rossque stdia gnost ics.c om/fa q/FAQ 22v1 (This link is being provi ded for infor dariusz terrell/ educa elder l purpo ses only. ) Not Available [facility] [address] [address] [place], [address], 01/27/2025 10:42:57 01/28/2001/27/2025 TSH W/REF VALENTINO TO FT4 TSH w/reflex to FT4 2.45 mIU/L 0.40-4 .50 normal Not Available [facility] [address] [address] [place], [address], 01/27/2025 10:42:58 01/28/20 25 01/27/2025 VITAM IN D,25- OH,TO ALISON,I A vitamin D,25-oh,tota l,ia 36 NG/mL 30-100 normal Vitam in D Statu s 25-OH Vitam in D: Defic iency : <20 ng/mL Insuf ficie ncy: 20 - 29 ng/mL Optim al: > or = 30 ng/mL For 25-OH Vitam in D testi ng on patie nts on D2-tran pplem entat ion and patie nts for whom quant itati on of D2 and D3 fract ions is requi red, the [facility](TM ) 25-OH VIT D, (D2,D 3), LC/MS /MS is recom micki d: order code 20487 (jamia ents >2yrs ). See Note 1 Note 1 For addit ional infor donna sarmiento refer to http: //[facility] padmini Mancuso stDia gnost ics.c om/fa q/FAQ 199 (This link is being provi ded for infor dariusz terrell/ nolberto miguel purpo ses only. ) Not Available [facility] [employer] [facility] [address] [place], [address], 01/27/2025 10:42:59 01/28/2001/27/2025 HEMOG LOBIN A1C hemoglobin A1C 12.1 % <5.7 high For someo ne witho ut known diabe jacqueline, a hemog lobin A1c value of 6.5% or great er indic ates that they may have diabe jacqueline and this shoul d be confi rmed with a follo w-up test. For someo ne with known diabe jacqueline, a value <7% indic ates that their diabe jacqueline is well contr olled and a value great er than or equal to 7% indic ates subop timal contr ol. A1c targe ts shoul d be indiv idual ized based on durat ion of diabe jacqueline, age, comor bid condi tions , and other consi derat ions. Curre ntly, no conse nsus exist s milagros harding use of hemog lobin A1c for diagn osis of diabe jacqueline for child katina. NO COLLE CTION DATE RECEI [place]TE. WE HAVE USED THE DATE THE SPECI MEN WAS RECEI CHARLOTTE BY THIS LABOR ATORY THE COLLE CTION DATE. IF THIS IS INCOR RECT, PLEAS E CONTA CT CLIEN T SERVI BEKA. PHONE NUMBE R: [phone] Not Available [employer] [facility] [address] [place], [address], 01/27/2025 10:43:00 02/24/20 24 02/24/2024 BASIC METAB OLIC PANEL sodium 134 mmol/ L 137-14 5 low Not Available [facility] (Lab) [address] [place], [address], 02/24/2024 20:48:45 02/24/20 24 02/24/2024 BASIC METAB OLIC PANEL potassium 4.2 mmol/ L 3.5-5. 1 Not Available [facility] (Lab) [address] [place], [address], 02/24/2024 20:48:45 02/24/20 24 02/24/2024 BASIC METAB OLIC PANEL chloride 97 mmol/ L 98-107 low Not Available [facility] (Lab) [address] [place], [address], 02/24/2024 20:48:45 02/24/20 24 02/24/2024 BASIC METAB OLIC PANEL carbon dioxide 29 mmol/ L 22-30 Not Available [facility] (Lab) [address] [place], [address], 02/24/2024 20:48:45 02/24/20 24 02/24/2024 BASIC METAB OLIC PANEL anion gap 12.2 mmol/ L 14-22 low Not Available [facility] (Lab) [address] [place], [address], 02/24/2024 20:48:45 02/24/20 24 02/24/2024 BASIC METAB OLIC PANEL glucose 164 mg/dL 70-99 high Not Available [facility] (Lab) [address] [place], [address], 02/24/2024 20:48:45 02/24/20 24 02/24/2024 BASIC METAB OLIC PANEL BUN 7 mg/dL 8-19 low Not Available [facility] (Lab) [address] [place], [address], 02/24/2024 20:48:45 02/24/20 24 02/24/2024 BASIC METAB OLIC PANEL creatinine 0.57 mg/dL 0.66-1 .25 low Not Available [facility] (Lab) [address] [place], [address], 02/24/2024 20:48:45 02/24/20 24 02/24/2024 BASIC METAB OLIC PANEL GFR >60 Refer ence Range : [place] ge GFR Healt hy Adult : >60 mL/mi n/1.7 3 m2 Chron ic Kidne y Disea se: 15-60 mL/mi n/1.7 3 m2 Kidne y Failu re: <15/m L/min /1.73 m2 www.n iddk. nih.g ov The MDRD study equat ion has not been valid ated in child katina <18 years of age; pregn ant women ; the elder ly >85 years of age; or in some racia l or ethni c subgr oups, such as [facility] nics. Outsi de the valid ated sesar eters , estim ated GFR is less accur ate, requi ring clini constantin judgm ent on a case- by-ca se basis . Clini constantin inter preta tion for other races and ages must be made by the clini fabiola. The MDRD study equat ion has not been valid ated for the evalu ation of serum creat inine relat ed to nutri elder l statu s or medic ation usage . For perso ns <18 years of age, a pedia tric GFR calcu lator is avail able on the [facility] websi te: https ://ww w.kid amina.o rg/pr jose juaness ional s/kdo qi/gf r_cal culat or Not Available [facility] (Lab) [address] [place], [address], 02/24/2024 20:48:45 02/24/20 24 02/24/2024 BASIC METAB OLIC PANEL calcium 9.4 mg/dL 8.4-10 .2 Not Available [facility] (Lab) [address] [place], [address], 02/24/2024 20:48:45 02/24/20 24 02/24/2024 LIPID PANEL cholesterol 219 mg/dL 140-19 9 high NIH CHELSEY NSUS RECOM MENDA TION FOR JASSI STERO L: ADULT CHILD LOW RISK: <200 <170 BORDE RLINE : <200- 239 ----- HIGH RISK: >240 >200 Not Available [facility] (Lab) [address] [place], [address], 02/24/2024 20:48:47 02/24/20 24 02/24/2024 LIPID PANEL triglyceride s 359 mg/dL 0-150 high NIH CHELSEY NSUS REPOR T RECOM MENDA TION FOR TRIGL YCERI PORFIRIO: ADULT CHILD LOW RISK: <150 ----- BODER LINE: 150-1 99 ----- HIGH RISK: >200 ----- Not Available [facility] (Lab) [address] [place], [address], 02/24/2024 20:48:47 02/24/20 24 02/24/2024 LIPID PANEL HDL cholesterol 39 mg/dL 40- low Not Available [facility] (Lab) [address] [place] [address], [address], 02/24/2024 20:48:47 02/24/20 24 02/24/2024 LIPID PANEL LDL cholesterol, calculated 108 mg/dL 0-130 NIH CHELSEY NSUS REPOR T RECOM MENDA TIONS FOR LDL: ADULT CHILD LOW RISK <130 <110 (OPTI MAL LDL) <100 ----- TARAH RLINE : 130-1 59 ----- HIGH RISK: >160 >130 A TRIGL YCERI DE RESUL T >400 INVAL IDATE S THE CALCU LATIO N FOR LDL FRACT IONAT ION - THE LDL RESUL T WILL NOT BE REPOR MELI. Not Available [facility] (Lab) [address] [place], [address], 02/24/2024 20:48:47 02/24/20 24 02/24/2024 HEPAT IC/LI BLAKE PANEL alkaline phosphatase 147 U/L 38-126 high Not Available [facility] (Lab) [address] [place], [address], 02/24/2024 20:48:49 02/24/20 24 02/24/2024 HEPAT IC/LI BLAKE PANEL alanine aminotransfe rase 37 U/L 0-35 high Not Available [facility] (Lab) [address] [place], [address], 02/24/2024 20:48:49 02/24/20 24 02/24/2024 HEPAT IC/LI BLAKE PANEL aspartate aminotransfe rase 43 U/L 15-37 high Not Available [facility] (Lab) [address] [place], [address], 02/24/2024 20:48:49 02/24/20 24 02/24/2024 HEPAT IC/LI BLAKE PANEL bilirubin, total 0.40 mg/dL 0.20-1 .30 Not Available [facility] (Lab) [address] [place], [address], 02/24/2024 20:48:49 02/24/20 24 02/24/2024 HEPAT IC/LI BLAKE PANEL bilirubin, conjugated (direct) 0.00 mg/dL 0.00-0 .30 Not Available [facility] (Lab) [address] [place], [address], 02/24/2024 20:48:49 02/24/20 24 02/24/2024 HEPAT IC/LI BLAKE PANEL biliurubin,u ncong. (indirect) 0.20 mg/dL 0.00-1 .1 Not Available [facility] (Lab) [address] [place], [address], 02/24/2024 20:48:49 02/24/20 24 02/24/2024 HEPAT IC/LI BLAKE PANEL total protein 6.8 g/dL 6.3-8. 2 Not Available [facility] (Lab) [address] [place], [address], 02/24/2024 20:48:49 02/24/20 24 02/24/2024 HEPAT IC/LI BLAKE PANEL albumin 4.2 g/dL 3.0-4. 4 Not Available [facility] (Lab) [address] [place], [address], 02/24/2024 20:48:49 02/24/20 24 02/24/2024 HEPAT IC/LI BLAKE PANEL globulin 2.6 g/dL 2.6-4. 2 Not Available [facility] (Lab) [address] [place], [address], 02/24/2024 20:48:49 02/24/20 24 02/24/2024 HEPAT IC/LI BLAKE PANEL A/G ratio 1.6 ratio 1.0-2. 0 Not Available [facility] (Lab) [address] [place], [address], 02/24/2024 20:48:49 02/24/20 24 02/24/2024 VITAM IN D 25-HY DROXY [id number] 40.5 NG/mL 30-100 Vitam in D Statu s: Defic ient: <20 ng/mL Insuf ficie nt: 20-29 ng/mL Suffi cient : 30-10 0 ng/mL Not Available [facility] (Lab) [address] [place], [address], 02/24/2024 20:56:23 02/24/20 24 02/24/2024 CBC/C OMPLE TE BLD COUNT W/DIF F white blood cells 8.2 x10'3 /uL 4.2-10 .8 Not Available [facility] [facility] [address] [place], [address], 02/24/2024 21:05:15 02/24/20 24 02/24/2024 CBC/C OMPLE TE BLD COUNT W/DIF F red blood cells 5.08 x10'6 /uL 3.80-5 .20 Not Available [facility] (Lab) [address] [place], [address], 02/24/2024 21:05:15 02/24/20 24 02/24/2024 CBC/C OMPLE TE BLD COUNT W/DIF F hemoglobin 15.0 g/dL 12.0-1 5.6 Not Available [facility] (Lab) [address] [place], [address], 02/24/2024 21:05:15 02/24/20 24 02/24/2024 CBC/C OMPLE TE BLD COUNT W/DIF F hematocrit 46.3 % 35.7-4 5.7 high Not Available [facility] (Lab) [address] [place], [address], 02/24/2024 21:05:15 02/24/20 24 02/24/2024 CBC/C OMPLE TE BLD COUNT W/DIF F mean red cell volume 91.1 fL 82.0-9 9.0 Not Available [facility] (Lab) [address] [place], [address], 02/24/2024 21:05:15 02/24/20 24 02/24/2024 CBC/C OMPLE TE BLD COUNT W/DIF F mean red cell hemoglobin 29.5 pg 27.0-3 3.0 Not Available [facility] (Lab) [address] [place], [address], 02/24/2024 21:05:15 02/24/20 24 02/24/2024 CBC/C OMPLE TE BLD COUNT W/DIF F mean RBC HGB concentratio n 32.4 g/dL 31.0-3 6.0 Not Available [facility] (Lab) [address] [place], [address], 02/24/2024 21:05:15 02/24/20 24 02/24/2024 CBC/C OMPLE TE BLD COUNT W/DIF F red cell distribution width 12.9 % 11.8-1 5.5 Not Available [facility] (Lab) [address] [place], [address], 02/24/2024 21:05:15 02/24/20 24 02/24/2024 CBC/C OMPLE TE BLD COUNT W/DIF F platelets 336 x10'3 /uL 150-40 0 Not Available [facility] (Lab) [address] [place], [address], 02/24/2024 21:05:15 02/24/20 24 02/24/2024 CBC/C OMPLE TE BLD COUNT W/DIF F mean platelet volume 11.3 fL 9.0-12 .4 Not Available [facility] (Lab) [address] [place], [address], 02/24/2024 21:05:15 02/24/20 24 02/24/2024 CBC/C OMPLE TE BLD COUNT W/DIF F neutrophils 50.3 % 39.0-7 2.0 Not Available [facility] (Lab) [address] [place], [address], 02/24/2024 21:05:15 02/24/20 24 02/24/2024 CBC/C OMPLE TE BLD COUNT W/DIF F lymphocytes 36.8 % 16.0-4 7.0 Not Available [facility] (Lab) [address] [place], [address], 02/24/2024 21:05:15 02/24/20 24 02/24/2024 CBC/C OMPLE TE BLD COUNT W/DIF F monocytes 6.8 % 5.0-12 .0 Not Available [facility] (Lab) [address] [place], [address], 02/24/2024 21:05:15 02/24/20 24 02/24/2024 CBC/C OMPLE TE BLD COUNT W/DIF F eosinophils 5.7 % 1.0-7. 0 Not Available [facility] (Lab) [address] [place], [address], 02/24/2024 21:05:15 02/24/20 24 02/24/2024 CBC/C OMPLE TE BLD COUNT W/DIF F basophils 0.2 % 0.0-2. 0 Not Available [facility] (Lab) [address] [place], [address], 02/24/2024 21:05:15 02/24/20 24 02/24/2024 CBC/C OMPLE TE BLD COUNT W/DIF F immature granulocytes 0.2 % 0.00-0 .50 Not Available [facility] (Lab) [address] [place], [address], 02/24/2024 21:05:15 02/24/20 24 02/24/2024 CBC/C OMPLE TE BLD COUNT W/DIF F neutrophils, absolute count 4.14 x10'3 /uL 1.5-8. 0 Not Available [facility] (Lab) [address] [place], [address], 02/24/2024 21:05:15 02/24/20 24 02/24/2024 CBC/C OMPLE TE BLD COUNT W/DIF F lymphocytes, absolute count 3.03 x10'3 /uL 1.07-3 .43 Not Available [facility] (Lab) [address] [place], [address], 02/24/2024 21:05:15 02/24/20 24 02/24/2024 CBC/C OMPLE TE BLD COUNT W/DIF F monocytes, absolute count 0.56 x10'3 /uL 0.29-0 .99 Not Available [facility] (Lab) [address] [place], [address], 02/24/2024 21:05:15 02/24/20 24 02/24/2024 CBC/C OMPLE TE BLD COUNT W/DIF F eosinophils, absolute count 0.47 x10'3 /uL 0.02-0 .53 Not Available [facility] (Lab) [address] [place], [address], 02/24/2024 21:05:15 02/24/20 24 02/24/2024 CBC/C OMPLE TE BLD COUNT W/DIF F basophils, absolute count 0.02 x10'3 /uL 0.01-0 .08 Not Available [facility] (Lab) [address] [place], [address], 02/24/2024 21:05:15 02/24/20 24 02/24/2024 CBC/C OMPLE TE BLD COUNT W/DIF F immature granulocytes ,absolute 0.02 x10'3 /uL 0.00-0 .05 Not Available [facility] (Lab) [address] [place], [address], 02/24/2024 21:05:15 02/24/20 24 02/24/2024 CBC/C OMPLE TE BLD COUNT W/DIF F nucleated red blood cells 0.0 % -0 Not Available [facility] (Lab) [address] [place], [address], 02/24/2024 21:05:15 02/24/20 24 02/24/2024 CBC/C OMPLE TE BLD COUNT W/DIF F NRBC# 0.00 x10'3 /uL Not Available [facility] (Lab) [address] [place], [address], 02/24/2024 21:05:15 02/24/20 24 02/24/2024 HEMOG LOBIN A1C HA1C 11.9 % 4.0-6. 0 high Diabe jacqueline Scree alice Crite tereza: <5.7% Consi stent with absen ce of diabe jacqueline 5.7-6 .4% Consi stent with incre ased risk for diabe jacqueline (pred iabet es) >OR=6 .5% Consi stent with diabe jacqueline REFER ENCE: Diabe jacqueline Care 2016, 39(Tran ppl.1 ):s13 -s22 Not Available [facility] (Lab) [address] [place], [address], 02/24/2024 22:49:02 02/24/20 24 02/26/2024 CALCI UM, IONIZ ED/LC calcium, ionized, serum 4.4 mg/dL 4.5-5. 6 low Perfo rmed at: [facility] [address] [id number] Lab Direc tor: Soren watts PhD, Phone : [phone] Not Available [facility] (Lab) [address] [place], [address], 02/26/2024 16:13:27 06/12/20 24 06/11/2024 LDCT, chest , for lung cance r lani jenkins No observ ation record ed. [email or web address] [address], [address], 06/24/2024 11:52:18 07/14/20 24 07/14/2024 XR, hand, 3 or more view No observ ation record ed. [email or web address] [address] [place], [address], 07/15/2024 11:05:58 10/18/1910/15/2024 MAMMO , scree alice, digit al, bilat eral No observ ation record ed. [email or web address] [facility] [address], [place], [address], 10/19/2024 11:06:32 12/16/1912/14/2024 XR, chest No observ ation record ed. [facility] [address], [place], [address], 12/15/2024 10:30:26 Result Notes None recorded. Problems Name Problem SNOMED Code Status Onset Date Resolution Date Notes Provider Name and Address Organization Details Recorded Time Menopausal syndrome 415918758 Active Not Available [facility] 3 20:45:13 Open wound of knee 197666071 Active Not Available [facility] 3 20:45:13 Cellulitis 000741987 Active Not Available [facility] 3 20:45:13 Chronic obstructiv e pulmonary disease 57572726 Active Not Available [facility] 3 20:45:13 Localized, primary osteoarthr itis of the hand 694983474 Active Not Available [facility] 3 20:45:13 Fine motor impairment 797907258 Active Not Available [facility] 3 20:45:13 Spasm of urinary bladder 709377936 Active Not Available [facility] 3 20:45:13 Low back pain 196502512 Active Not Available [facility] 3 20:45:13 Lesion of lip 724152794 Active Not Available [facility] 3 20:45:13 Enthesopat hy of hip region 48239857 Active Not Available [facility] 3 20:45:13 Osteopenia 889252610 Active 2020 Not Available [facility] 3 20:45:13 Bronchitis 79782834 Active Not Available [facility] 3 20:45:13 Depressive disorder 01104167 Active Not Available [facility] 3 20:45:13 Neuropathy 558662167 Active Not Available [facility] 3 20:45:14 Rosacea 752081399 Active Not Available [facility] 3 20:45:14 Pain of hip region 50379518 Active Not Available [facility] 3 20:45:14 Dysuria 27313208 Active Not Available [facility] 3 20:45:14 Hyperlipid emia 07676710 Active Not Available [facility] 3 20:45:14 Pain of joint 88632040 Active Not Available [facility] 3 20:45:14 Hypercalce gregory 45970640 Active Not Available [facility] 3 20:45:14 Increased liver function 16643924 Active Not Available [facility] 3 20:45:14 Polyp of colon 33342230 Active repeat cscope 07/2020 Not Available [facility] 3 20:45:14 Diabetes mellitus 15763479 Active Not Available [facility] 3 20:45:14 Skin lesion 52631767 Active Not Available [facility] 3 20:45:14 Cough 68917938 Active 2022 Not Available [facility] 3 20:45:14 Uncontroll ed type 2 diabetes mellitus 311660117 Active 2022 Not Available [facility] 3 20:45:14 Pain in thumb 601224768 Active 2022 Not Available [facility] 3 20:45:13 Pain of multiple joints 39194302 Active 2022 Not Available [facility] 3 20:45:14 Type 2 diabetes mellitus 34883374 Active 2022 Not Available [facility] 3 20:45:14 Liver enzymes level above reference range 418204717 Active 2022 Not Available [facility] 3 20:45:14 Abdominal pain 77027809 Active 2022 Not Available [facility] 3 20:45:13 Acute urinary tract infection 568805535 Active 2022 Not Available [facility] 3 20:45:14 Essential hypertensi on 73513502 Active 2023 Magdalena Orlando MD [address], [place], [address] , [employer] [facility] [employer] [facility] 4 15:46:51 Vitamin D deficiency 73056194 Active 2023 Magdalena Orlando MD [address], [address], [place], [address] , [employer] [facility] 4 15:47:08 Pain in right hand 127734416617 109 Active 2023 MARIA LUISA Beck [address], [place], [address] , [employer] [facility] [employer] [facility] 4 10:48:22 CT of chest abnormal 220734497108 21113 Active 2023 MARIA LUISA Beck [address], [address], [place], [address] , [employer] [facility] [employer] [facility] 4 10:57:08 Nicotine dependence 23793281 Active 2023 MARIA LUISA Beck [address] [address], [place], [address] , [employer] [facility] [employer] [facility] 4 10:35:37 Cigarette smoker 44799695 Active 2023 MARIA LUISA Beck [address], [address], [place], [address] , [employer] [facility] [employer] [facility] 4 10:36:23 Acute upper respirator y infection 23320783 Active 2023 MARIA LUISA Leigh [address], [address], [place], [address] , [employer] [facility] [employer] [facility] 4 09:10:24 Productive cough -green sputum 328300520 Active 2024 MARIA LUISA Leigh [address], [place], [address] , [employer] [facility] [employer] [facility] 16:43:40 Wheezing 04852939 Active 2024 MARIA LUISA Leigh [address], [place], [address] , [employer] [facility] 16:44:51 Allergic rhinitis 85446692 Active 2024 MARIA LUISA Leigh [address], [place], [address] , [employer] 09:10:00 Notes:Some problems listed i n Document: #[id number] could not be added to this patient's chart. Please review this document and add these problems to the patient's chart manually as needed. Problem Notes None recorded. Procedures Surgical History Date Name Laterality Status Provider Name and Address Organization Details Recorded Time 01/27/20 25 Medicare Wellness CPT Code, subsequent completed MARIA LUISA Leigh [address], [address] [address], [place], [address], [employer] [facility] [employer] 01/26/2025 08:52:08 12/24/19 24 Nail Debridement completed Christopher Dove DPM [address], [address] [address], [place], [address], [employer] [facility] 12/24/2023 10:37:59 11/26/19 22 colonoscopy completed Not Available [facility] 12/12/19 23 00:48:09 delivery completed Cheryl Osman MA [facility] [employer] [facility] 01/26/2025 08:43:49 Hysterectomy completed Cheryl Osman MA [facility] [employer] 01/26/2025 08:43:59 Imaging Results None recorded. Procedure Notes None recorded. Medical Equipment None Reported. Allergies No known drug allergies Medications Name Sig Start Date Stop Date Status Note LastModified by Organization Details LastModified Time covid-19 at home tst kt 2pk(walgns) FOLLOW PACKAGE DIRECTION S 08/19 completed Not Available Not Available Not Available amoxicillin 500 mg capsule 09/30 completed Not Available Not Available Not Available metformin 500 mg tablet TAKE 2 TABLETS BY MOUTH TWICE DAILY 04/19 completed Not Available Not Available Not Available atorvastati n 80 mg tablet TAKE 1 TABLET BY MOUTH EVERY DAY active Not Available Not Available No t Available prednisone 10 mg tablet active Not Available Not Available Not Available clindamycin HCl 300 mg capsule 11/01 completed Not Available Not Available Not Available trazodone 50 mg tablet 01/28 completed Not Available Not Available Not Available azithromyci n 250 mg tablet TAKE 2 TABLETS (500 MG) BY ORAL ROUTE ONCE DAILY FOR 1 DAY THEN 1 TABLET (250 MG) BY ORAL ROUTE ONCE DAILY FOR 4 DAYS 01/26 completed Not Available Not Available Not Available ibuprofen 800 mg tablet TAKE 1 TABLET BY MOUTH THREE TIMES DAILY NEEDED active Not Available Not Available No t Available metoprolol succinate ER 50 mg tablet,exte nded release 24 hr 01/26 completed Not Available Not Available Not Available valacyclovi r 1 gram tablet Take 1 tablet every 12 hours by oral route for 7 days. active Not Available Not Available No t Available hydrocodone 5 mg-acetamin ophen 325 mg tablet Take 1 tablet 3 times a day by oral route as needed for 10 days. 11/01 completed Not Available Not Available Not Available ondansetron HCl 8 mg tablet Take 1 tablet every 8 hours by oral route as needed. active Not Available Not Available No t Available prednisone 20 mg tablet TAKE 2 TABLETS BY MOUTH EVERY DAY FOR 5 DAYS active Not Available Not Available No t Available metoprolol succinate ER 100 mg tablet,exte nded release 24 hr active Not Available Not Available Not Available permethrin 5 % topical cream APPLY (THOROUGH LY MASSAGE INTO SKIN FROM HEAD TO SOLES OF FEET) BY TOPICAL ROUTE ONCE LEAVE ON FOR 8-14 HR, THEN REMOVE BY THOROUGH WASHING active Not Available Not Available No t Available acetaminoph en 300 mg-codeine 30 mg tablet Take 1 tablet every 6 hours by oral route as needed. active Not Available Not Available No t Available ciprofloxac in 250 mg tablet TAKE 1 TABLET BY MOUTH TWICE DAILY FOR 10 DAYS active Not Available Not Available No t Available sulfamethox azole 800 mg-trimetho prim 160 mg tablet TAKE 1 TABLET BY MOUTH TWICE DAILY 08/14 completed Not Available Not Available Not Available peg-electro lyte solution 420 gram oral solution 11/01 completed Not Available Not Available Not Available omeprazole 40 mg capsule,del ayed release TAKE 1 CAPSULE BY MOUTH EVERY DAY active Not Available Not Available No t Available aspirin 81 mg tablet,dwayne yed release TK ONE T PO QD active Not Available Not Available No t Available doxycycline monohydrate 100 mg tablet TAKE 1 TABLET BY MOUTH TWICE DAILY 12/11 completed Not Available Not Available Not Available tramadol 50 mg tablet 1 po q6 hour prn pain active Not Available Not Available No t Available simvastatin 40 mg tablet TK 1 T PO QHS 02/23 completed Not Available Not Available Not Available amitriptyli ne 25 mg tablet TAKE 1 TABLET BY MOUTH EVERY DAY NEEDED active Not Available Not Available No t Available oxycodone-a cetaminophe n 10 mg-325 mg tablet TK 1 T PO Q 6 H PRN 01/30 completed Not Available Not Available Not Available cephalexin 500 mg capsule TAKE 1 CAPSULE BY MOUTH TWICE DAILY FOR 7 DAYS 10/10 completed Not Available Not Available Not Available nitrofurant oin macrocrysta l 100 mg capsule Take 1 capsule twice a day by oral route for 7 days. active Not Available Not Available No t Available tobramycin 0.3 % eye drops INSTILL 1 DROP IN LEFT EYE EVERY 2 HOURS 01/26 completed Not Available Not Available Not Available polymyxin B sulfate 10,000 unit-trimet hoprim 1 mg/mL eye drops INT 1 GTT IN right eye FOUR TIMES DAILY x 7 days active Not Available Not Available No t Available bupropion HCl 75 mg tablet TAKE 2 TABLETS BY MOUTH EVERY DAY active Not Available Not Available No t Available gabapentin 300 mg capsule Take 1 capsule twice a day by oral route. active Not Available Not Available No t Available diclofenac sodium 75 mg tablet,dwayne yed release Take 1 tablet twice a day by oral route. active Take with food Not Available Not Available Not Available cephalexin 500 mg tablet Take 1 tablet twice a day by oral route for 7 days. 12/19 completed Not Available Not Available Not Available diltiazem CD 120 mg capsule,ext ended release 24 hr active Not Available Not Available Not Available lisinopril 5 mg tablet TK 1 T PO QD active Not Available Not Available No t Available permethrin 1 % topical liquid APPLY A SUFFICIEN T AMOUNT OF SHAMPOO BY TOPICAL ROUTE ONCE ALLOW TO REMAIN ON HAIR FOR 10 MINUTES BEFORE RINSING OFF WITH WATER 03/23 completed Not Available Not Available Not Available loteprednol etabonate 0.5 % eye drops,suspe nsion SHAKE LIQUID AND INSTILL 1 DROP IN LEFT EYE TWICE DAILY 01/26 completed Not Available Not Available Not Available cefuroxime axetil 500 mg tablet TAKE 1 TABLET BY MOUTH TWICE DAILY 12/11 completed Not Available Not Available Not Available levofloxaci n 500 mg tablet Take 1 tablet every 24 hours by oral route for 7 days. 08/17 completed Not Available Not Available Not Available estradiol 0.01% (0.1 mg/gram) vaginal cream APPLY 1 GRAMS IN VAGINA 2 NIGHTS A WEEK 01/26 completed Not Available Not Available Not Available albuterol sulfate HFA 90 mcg/actuati on aerosol inhaler INHALE 1 TO 2 PUFFS BY MOUTH EVERY 4 HOURS NEEDED active Not Available Not Available No t Available oxybutynin chloride 5 mg tablet Take 1 tablet every day by oral route. active Not Available Not Available No t Available fluticasone propionate 50 mcg/actuati on nasal spray,suspe nsion SHAKE LIQUID AND USE 2 SPRAYS IN EACH NOSTRIL EVERY DAY active Not Available Not Available No t Available imipramine 25 mg tablet 01/28 completed Not Available Not Available Not Available metronidazo le 0.75 % topical gel apply to face bid active Not Available Not Available No t Available doxycycline hyclate 100 mg tablet TAKE 1 TABLET BY MOUTH TWICE DAILY FOR 10 DAYS 12/31 completed Not Available Not Available Not Available loratadine 10 mg tablet TAKE 1 TABLET BY MOUTH EVERY DAY active Not Available Not Available No t Available amoxicillin 875 mg-potassiu m clavulanate 125 mg tablet TAKE 1 TABLET BY MOUTH TWICE DAILY UNTIL ALL TAKEN 10/02 completed Not Available Not Available Not Available Cozaar 50 mg tablet Take 1 tablet every day by oral route. 11/17 completed Not Available Not Available Not Available cyclobenzap rine 5 mg tablet Take 1 tablet 3 times a day by oral route. 11/17 completed Not Available Not Available Not Available moxifloxaci n 0.5 % eye drops INSTILL 1 DROP IN EACH EYE THREE TIMES DAILY FOR 7 DAYS active Not Available Not Available No t Available rosuvastati n 10 mg tablet TAKE 1 TABLET BY MOUTH EVERY DAY active Not Available Not Available No t Available nitrofurant oin monohydrate /macrocryst als 100 mg capsule TAKE 1 CAPSULE BY MOUTH EVERY 12 HOURS FOR 7 DAYS 08/19 completed Not Available Not Available Not Available DILT-XR 120 mg capsule, extended release active Not Available Not Available Not Available Byetta 10 mcg/dose(25 0 mcg/mL)2.4 mL subcutaneou s pen injector ADMINISTE R 10 MCG UNDER THE SKIN TWICE DAILY 12/31 completed Not Available Not Available Not Available Lyrica 50 mg capsule Take 1 capsule 3 times a day by oral route. 02/12 completed Not Available Not Available Not Available prednisone 01/28 completed Not Available Not Available Not Available Levemir FlexPen 100 unit/mL (3 mL) solution subcutaneou s insulin pen ADMINISTE R 85 UNITS UNDER THE SKIN TWICE DAILY 01/26 completed Not Available Not Available Not Available Zostavax (PF) 19,400 unit/0.65 mL subcutaneou s suspension ADM 0.65ML SC UTD 01/26 completed Not Available Not Available Not Available Levemir FlexPen 55 units sc qhs 11/17 completed Not Available Not Available Not Available Symbicort 160 mcg-4.5 mcg/actuati on HFA aerosol inhaler INHALE 2 PUFFS BY MOUTH TWICE DAILY active Not Available Not Available No t Available Lantus Solostar U-100 Insulin 100 unit/mL (3 mL) subcutaneou s pen ADMINISTE R 85 UNITS UNDER THE SKIN TWICE DAILY active Not Available Not Available No t Available Novofine 32 32 gauge x 1/4 needle USE TO INJECT DIRECTED active Not Available Not Available No t Available buprenorphi ne 5 mcg/hour weekly transdermal patch APPLY 1 PATCH TOPICALLY TO THE SKIN EVERY WEEK DIRECTED active Not Available Not Available No t Available OneTouch Verio test strips TEST DIRECTED THREE TIMES DAILY active Not Available Not Available No t Available Prolensa 0.07 % eye drops INT 1 GTT IN OS Q DAY. START AFTER SURGERY 01/26 completed Not Available Not Available Not Available OneTouch Ultra Blue Test Strip active Not Available Not Available N ot Available Lotemax SM 0.38 % eye gel drops INT 1 GTT IN OS THREE TIMES DAILY. START AFTER SURGERY 01/26 completed Not Available Not Available Not Available BD Kayla 2nd Gen Pen Needle 32 gauge x 32 DIRECTED DAILY active Not Available Not Available No t Available OneTouch Delica Plus Lancet 33 gauge TEST DIRECTED THREE TIMES DAILY active Not Available Not Available No t Available OneTouch Verio Reflect Meter USE DIRECTED TO TEST THREE TIMES DAILY. active Not Available Not Available No t Available Trulicity 3 mg/0.5 mL subcutaneou s pen injector ADMINISTE R 3 MG UNDER THE SKIN EVERY WEEK active Not Available Not Available No t Available Trulicity 4.5 mg/0.5 mL subcutaneou s pen injector ADMINISTE R 4.5 MG UNDER THE SKIN EVERY WEEK active Not Available Not Available No t Available Mounjaro 7.5 mg/0.5 mL subcutaneou s pen injector ADMINISTE R 7.5MG UNDER THE SKIN EVERY WEEK 08/19 completed Not Available Not Available Not Available Mounjaro 5 mg/0.5 mL subcutaneou s pen injector ADMINISTE R 5 MG UNDER THE SKIN EVERY WEEK 02/03 completed Not Available Not Available Not Available Mounjaro 10 mg/0.5 mL subcutaneou s pen injector ADMINISTE R 10 MG UNDER THE SKIN EVERY WEEK 02/23 completed Not Available Not Available Not Available Mounjaro 12.5 mg/0.5 mL subcutaneou s pen injector 0.5 ml sc qweek 2022 active Not Available Not Available Not Gideon nicholson Mounjaro 2.5 mg/0.5 mL subcutaneou s pen injector INJECT 2.5 MG UNDER THE SKIN ONE DAY A WEEK 02/03 completed Not Available Not Available Not Available Vitals Date Recorded Body height Body mass index (BMI) Body weight Body temperature Oxygen saturation Oxygen saturation in Arterial blood by Pulse oximetry Heart rate Systolic blood pressure Diastolic blood pressure Provider Name and Address Organization Details Last Updated DateTime 5 160.02 cm 23.9 kg/m2 33012.9 7 g 97.2 [degF] 90 % 90 % 88 /min 120 mm[Hg] 72 mm[Hg] Shahbaz Vera RN [place] - [employer] [facility] 5 16:38:23 Date Recorded Body height Body mass index (BMI) Body weight Body temperature Heart rate Oxygen saturation Oxygen saturation in Arterial blood by Pulse oximetry Systolic blood pressure Diastolic blood pressure Provider Name and Address Organization Details Last Updated DateTime 5 160.02 cm 24.6 kg/m2 49399.3 4 g 98.2 [degF] 125 /min 91 % 91 % 110 mm[Hg] 70 mm[Hg] Cheryl Osman MA [facility] [employer] [facility] 5 08:39:14 Date Recorded Body height Body mass index (BMI) Body weight Body temperature Heart rate Oxygen saturation Oxygen saturation in Arterial blood by Pulse oximetry Systolic blood pressure Diastolic blood pressure Provider Name and Address Organization Details Last Updated DateTime 4 160.02 cm 23.4 kg/m2 27482.1 9 g 97.8 [degF] 86 /min 90 % 90 % 124 mm[Hg] 70 mm[Hg] Shahbaz Vera RN [facility] [employer] [facility] 4 14:27:41 Date Recorded Body height Body mass index (BMI) Body weight Body temperature Heart rate Oxygen saturation Oxygen saturation in Arterial blood by Pulse oximetry Systolic blood pressure Diastolic blood pressure Provider Name and Address Organization Details Last Updated DateTime 4 160.02 cm 23.2 kg/m2 38292.6 g 98.3 [degF] 93 /min 93 % 93 % 96 mm[Hg] 60 mm[Hg] Xin Crook RN [facility] [employer] [facility] 4 10:30:02 Date Recorded Body height Body mass index (BMI) Body weight Body temperature Oxygen saturation Oxygen saturation in Arterial blood by Pulse oximetry Heart rate Systolic blood pressure Diastolic blood pressure Provider Name and Address Organization Details Last Updated DateTime 4 160.02 cm 24.4 kg/m2 65263.7 5 g 97.3 [degF] 92 % 92 % 89 /min 120 mm[Hg] 76 mm[Hg] Shahbaz Vera RN [facility] [employer] [facility] 4 11:39:01 Social History Question Answer Notes LastModified by Organizat ion Details LastModified Time Tobacco Smoking Status Former Smoker quit 2018 Not Available [employer] 12/11/2022 00:45:27 Do You Wear A Helmet When Biking? Yes [id number] Information not available 12/11/2022 What Is Your Level Of Caffeine Consumption? Occasional [id number].[id number] Information not available 12/11/2022 In The 14 Days Before Symptom Onset, Have You Had Close Contact With A Laboratory-confir med COVID-19 While That Case Was Ill? No Information not available 01/26/2025 In The 14 Days Before Symptom Onset, Have You Had Close Contact With A Person Who Is Under Investigation For COVID-19 While That Person Was Ill? No Information not available 01/26/2025 What Type Of Diet Are You Following? REGULAR MIGRATION.[id number] [id number] Information not available 12/11/2022 What Is The Highest Grade Or Level Of School You Have Completed Or The Highest Degree You Have Received? RP87139-4 MIGRATION.80926 [id number] Information not available 12/11/2022 Have There Been Any Changes To Your Family Or Social Situation? No MIGRATION.57551 82941 Information not available 12/11/2022 When Did You Quit Smoking? 1-5yearssincel astcigarette MIGRATION.91673 91160 Information not available 12/11/2022 Do You Use Insect Repellent Routinely? No Information not available 01/26/2025 What Was The Date Of Your Most Recent Tobacco Screening? 01/26/2025 Information not available 01/26/2025 How Many Children Do You Have? 2 Information not available 01/26/2025 Do You Have Any Pets? No MIGRATION.61079 [id number] Information not available 12/11/2022 What Is Your Relationship Status? Single MIGRATION.59444 41474 Information not available 12/11/2022 Do You Use Your Seat Belt Or Car Seat Routinely? Yes MIGRATION.75257 44778 Information not available 12/11/2022 Do You Have Smoke And Carbon Monoxide Detectors In Your Home? Yes MIGRATION.42338 68731 Information not available 12/11/2022 Are You Passively Exposed To Smoke? No Information no t available 01/26/2025 Are There Any Smokers In Your House? No Information not available 01/26/2025 Do You Participate In Social Media? No MIGRATION.27996 94946 Information not available 12/11/2022 Do You Use Sunscreen Routinely? No Information not available 01/26/2025 How Many Years Have You Smoked Tobacco? 40 MIGRATION.25268 16273 Information not available 12/11/2022 Have You Recently Traveled Abroad? No Information not available 01/26/2025 Are You Currently In School? No MIGRATION.49479 45417 Information not available 12/11/2022 Do You Have Any Dietary Restrictions? No MIGRATION.71398 62935 Information not available 12/11/2022 Sex: Unknown Functional Status Question Answer Note LastModified by [employer] Details LastModified Time Do you use any illicit or recreational drugs? No MIGRATION.[id number] Information not available 12/11/2022 What is your level of alcohol consumption? None MIGRATION.[id number] Information not available 12/11/2022 Are you currently employed? Disabled Information not available 01/26/2025 What is your exercise level? None MIGRATION.[id number] 026 Information not available 12/11/2022 Mental Status Question Answer Note LastModified by Organizat ion Details LastModified Time Do you feel stressed (tense, restless, nervous, or anxious, or unable to sleep at night)? [id number] [id number] Information not available 12/11/2022 Family History Relationship Description Onset Age of this Age Resolved Age Notes LastModified by Organization Details LastModified Time Father Essential hypertension MIGRATION.760 [id number] Not available 12/11/2022 00:48:14 Father Diabetes mellitus MIGRATION.920 [id number] Not available 12/11/2022 00:48:14 Father Hyperlipidem ia MIGRATION.575 [id number] Not available 12/11/2022 00:48:14 Father Malignant neoplasm of prostate MIGRATION.259 [id number] Not available 12/11/2022 00:48:14 Paternal Grandfather Malignant tumor of colon MIGRATION.679 [id number] Not available 12/11/2022 00:48:14 Unspecified Relation Malignant tumor of colon Patern al Great grandm other MIGRATION.663 [id number] Not available 12/11/2022 00:48:14 Medical History No medical history recorded. Gynecological History Statement/Question Response How many live births 2 Date of Last Colonoscopy Most Recent Bone Density Date of LMP Date of Last Pap Smear Current Control Method Hysterectom y Most Recent Mammogram Obstetrics History GPAL:G 2 P 2 0 0 2 Type Value Multiple Births 0 Full Term 2 Induced 0 Spontaneous 0 Premature 0 Living 2 Ectopics 0 Total 2 Immunizations Vaccine Type Date Status Note Provider Nam e and Address Organization Details Recorded Time Tdap 4 completed BARBARA Leigh-C [address] [facility], [facility] [address], [place], [address], [facility] [employer] [facility] 01/27/2025 08:49:20 Influenza, split virus, quadrivalent, PF 3 completed [address] Currie RN [facility], [place] [employer] [facility] 07/08/2023 08:47:14 zoster live 7 completed Not Available [facility] 09/29/2023 20:45:14 Tdap 2 completed Not Available [facility] 09/29/2023 20:45:14 pneumococcal polysaccharide PPV23 1 completed Not Available [facility] 09/29/2023 20:45:14 Influenza, high-dose, trivalent, PF 9 completed Not Available [facility] 09/29/2023 20:45:14 Pneumococcal conjugate PCV 13 8 completed Not Available [facility] 09/29/2023 20:45:14 Influenza, split virus, quadrivalent, PF 8 completed Not Available [facility] 09/29/2023 20:45:14 Influenza, split virus, quadrivalent, PF 4 completed Not Available [facility] 09/29/2023 20:45:14 Influenza, split virus, quadrivalent, PF 2 completed Not Available [facility] 09/29/2023 20:45:14 Influenza, split virus, quadrivalent, PF 1 completed Not Available [facility] 09/29/2023 20:45:14 Influenza, split virus, quadrivalent, PF 0 completed Not Available [facility] 09/29/2023 20:45:14 Influenza, split virus, quadrivalent, PF 8 completed Not Available [facility] 09/29/2023 20:45:14 Influenza, split virus, quadrivalent, preservative 6 completed Not Available [facility] 09/29/2023 20:45:14 Influenza, split virus, quadrivalent, PF 5 completed Not Available [facility] 09/29/2023 20:45:14 Past Encounters Encounter ID Performer Location Encounter Start Date Encounter Closed Date Diagnosis/Indication Diagnosis SNOMED-CT Code Diagnosis ICD10 Code Diagnosis Note [id number] Magdalena Orlando MD [facility] Primary [facility] [place] [address] [place] [address] 12/18/2020 00:00:00 12/18/2020 11:16:22 [id number] Magdalena Orlando MD [facility] Primary [facility] [place] [address] [place] [address] 06/05/2021 00:00:00 06/05/2021 08:14:52 [id number] Magdalena Orlando MD [facility] Primary [facility] [place] [address] [place] [address] 07/11/2021 00:00:00 07/11/2021 13:14:27 [id number] Magdalena Orlando MD [facility] Primary [facility] [place] [address] [place] [address] 10/10/2021 00:00:00 10/10/2021 09:48:43 [id number] Magdalena Orlando MD [facility] Primary [facility] [place] [address] [place] [address] 12/11/2021 00:00:00 12/11/2021 10:35:10 [id number] Magdalena Orlando MD [facility] Primary [facility] [place] [address] [place] [address] 03/13/2022 00:00:00 03/13/2022 10:55:29 [id number] Magdalena Orladno MD [facility] Primary [facility] [place] [address] [place] [address] 05/13/2022 00:00:00 05/13/2022 15:27:16 [id number] MICHELLE Daly [facility] Primary [facility] [place] [address] [place] [address] 05/22/2022 00:00:00 05/23/2022 09:21:42 [id number] Magdalena Orlando MD [facility] Primary Care [place] [address] [place] [address] 07/01/2022 00:00:00 07/01/2022 09:58:40 [id number] Magdalena Orlando MD [facility] Primary Care [place] [address] [place] [address] 08/14/2022 00:00:00 09/11/2022 10:55:23 [id number] Magdalena Orlando MD [facility] Primary Care [place] [address] [facility] [address] [place] [address] 10/01/2022 00:00:00 10/01/2022 09:15:29 [id number] Magdalena Orlando MD [facility] Primary Care [place] [address] [facility] [address] [place] [address] 11/26/2022 00:00:00 12/03/2022 19:55:54 [id number] Magdalena Orlando MD [facility] Primary Care [place] [address] [facility] [address] [place] [address] 12/31/2022 08:58:46 12/31/2022 09:31:47 Uncontrolled type 2 diabetes mellitus 146010911 E11.65 not in good controlcon tinue levemir 85 units bidd/c byettabegi n mounjaro 5 mg sc qweekf/u in 4 weeks or sooner if needed [id number] Magdalena Orlando MD [facility] Primary Care [place] [address] [facility] [address] [place] [address] 02/03/2023 09:13:26 02/03/2023 09:52:21 Uncontrolled type 2 diabetes mellitus 372593223 E11.65 not in good controlcon tinue levemir 85 units bidincreas e mounjaro 7.5 mg sc qweekf/u in 4 weeks or sooner if needed Screening mammography 24 451186 Z12.31 Pain in thumb 882418424 M79.[address] Thibodeaux again [id number] Magdalena Orlando MD [facility] Primary Care [facility] [address] [facility] [address] [place] [address] 04/08/2023 08:10:29 04/08/2023 08:47:58 Liver enzymes level above reference range 901961818 R74.01 Uncontroll ed type 2 diabetes mellitus 269757842 E11.65 04-08-23 Reports no ASE with current dosage. Continues to monitor blood sugars. Blood sugars are improving. Goal is to increase to 10 when pharmacy has it available. Follow up in 3 months. not in good controlcon tinue levemir 85 units bidincreas e mounjaro 7.5 mg sc qweekf/u in 4 weeks or sooner if needed [id number] Magdalena Orlando MD [facility] Primary [facility] [address] [facility] 140 [facility] [address] 04/30/2023 11:48:02 04/30/2023 12:24:23 [id number] Magdalena Orlando MD [facility] Primary Care [facility] [address] [facility] [address] [facility] [address] 07/08/2023 08:07:19 07/08/2023 08:44:08 Type 2 diabetes mellitus 77925016 E11.9 improving but not yet to baselinein crease mounjaro 10 mg sc qweekf/u in 4 weeks or sooner if needed Administra tion of influenza vaccine 55635767 Z23 [id number] Magdalena Orlando MD [facility] Primary Care [place] [address] [facility] [address] [place] [address] 08/19/2023 08:37:23 08/19/2023 09:10:52 Type 2 diabetes mellitus 03728918 E11.9 improving but not yet to baselinein crease mounjaro 12.5 mg sc qweekf/u in 4 weeks or sooner if needed [id number] Magdalena Orlando MD [facility] Primary Care [address] [place] [address] 12/02/2023 15:33:38 12/02/2023 16:08:24 Diabetes mellitus 89065159 E11.69 Hypercalcemia 79843900 E 83.52 Hyperlipidemia 98262241 E78.5 Z79.899 Essential hypertension 64314963 I10 Vitamin D deficiency 347 62535 E55.9 [id number] Christopher Dove DPM [facility] Podiatry [place] [address] [address] 12/24/2023 09:52:53 12/24/2023 11:08:11 Type 2 diabetes mellitus 42760415 E11.9 [id number] Magdalena Orlando MD [facility] Primary Care [address] [place] [address] 02/24/2024 14:19:57 02/24/2024 15:09:31 Diabetes mellitus 83425465 E11.69 trulicity has been on back orderconti nue levemir 85 units biddiabeti c eye exam up to datehas continuous glucose monitorsee ing podiatrych emmanuel labs Hypercalcemia 52528285 E 83.52 Hyperlipidemia 34951435 E78.5 Z79.899 Essential hypertension 50415281 I10 stable Vitamin D deficiency 347 08722 E55.9 [id number] MARIA LUISA Beck [facility] Primary Care [facility] [address] [facility] [address] [place] [address] 05/26/2024 10:23:21 05/26/2024 11:01:06 Chronic obstructive pulmonary disease 75698267 J44.9 Pain in right hand 57961 77417 84678 M79.641 Screening for malignant neoplasm of breast 018532798 Z12.39 CT of chest abnormal 935 7451746 1853193 R93.89 hx of abnormal low dose CT [id number] MARIA LUISA Leigh [facility] Primary Care [address] [place] [address] 08/17/2024 11:31:45 08/17/2024 12:47:25 Chronic obstructive pulmonary disease 08869880 J44.9 Well controlled on current medication s. Pain in right hand 24618 08386 33749 M79.641 Follows up with hand specialist on 08/31. Type 2 marlee betes mellitus 03964916 E11.9 Levemir is discontinu ed, will switch to Lantus.Gladys ieed will follow up in 3 months, sooner if needed. Pain of mu ltiple joints 82076526 M25.50 Skin lesion 85046949 L98 .9 [id number] MARIA LUISA Leigh [facility] Primary Care [address] [address] 12/14/2024 16:34:02 12/14/2024 16:49:29 Productive cough -green sputum 443893729 R09.3 Acute uppe r respiratory infection 52748440 J06.9 [id number] MARIA LUISA Leigh [facility] Primary Care [address] [address] 01/26/2025 08:32:29 01/26/2025 09:24:00 Adult health examination 103662498 Z00.00 Discussed medication compliance and routine follow up.Discuss ed healthy diet and routine exercise.Jarred madrigalwed vaccine records and made recommenda tions as needed.Enc ouraged annual eye and dental exams, as well as twice yearly dental cleanings. Will check screening labs as listed below. Screening for disorder 924481504 Z13.9 Chronic ob structive pulmonary disease 94875639 J44.9 Well controlled on current medication s.Will refer to pulmonolgy to re-establi sh care. Essential hypertension 64763141 I10 110/70Disc ussed DASH diet and routine exercise. Hyperlipidemia 78116028 E78.5 Z79.899 Will check labs as listed below. Neuropathy 666299347 G62 .9 Vitamin D deficiency 347 24278 E55.9 Will check labs as listed below. Thyroid di sorder screening 195019901 Z13.29 Type 2 marlee betes mellitus 98284514 E11.9 Diabetic Foot and Eye Exams are UTD per patient. Hepatitis C screening 41 4125429 Z11.59 Allergic rhinitis 467852 04 J30.9 Postmenopausal state 764 01541 Z78.0 Body mass index 20-24 - normal 293108147 Z68.24 Weight: 139 poundsBMI: 24.6 Health Concerns Section Related Observation LastModified by Organization Detai ls LastModified Time None Recorded Concern Status LastModified by Organization Details LastModified Time None Recorded Advance Directives Directive None Recorded Payers Insurance Date Sequence Insurance Name Policy Number Policy Boykin Covered Member ID Boykin Member ID Guarantor Name 01/27/2025 2 [place]SECON[place]AN WHEN MEDICARE OR MEDICARE REPLACEMENT PRIMARY) Xochitl Galdamez [id number] Xochitl Wright Deputy 01/23/2025 1 [facility] (MEDICARE REPLACEMENT/A DVANTAGE - HMO) [id number] Xochitl Wright Deputy [id number] Xochitl Wright Galdamez Notes Date Note Type Note Provider Name and Address Organization Details Recorded Time 02/24/2024 text/html Pt doing well on Mounjaro. Has continued to monitor/limit diet. No c/o nausea/vomiting/diarr hea/constipation.Bloo d sugars per monitor are mid 100s-low 300s update 07/08/23: Home blood sugars are running mostly 200s, no hypoglycemic events. update 08/19/23: Home blood sugars are in the low 200s. No hypoglycemic events. update 12/02/23: Home blood sugars are under 100 in AM, fluctuates during the day. No med s/e update 02/24/24: home blood sugars are elevated at times up to 200 during the day after eating but AM fasting is 140. No chest pain or sob. No hypoglycemic events. Magdalena Orlando MD [address], [place], [address], [facility] 02/29/2024 10:43:32 05/26/2024 text/html pt is here for f/u MARIA LUISA Palmer [address], [place], [address], [facility] 05/26/2024 11:07:25 08/17/2024 text/html Patient is a 64 year old female that presents to the office for three month follow up. Patient requesting insulin change due to discontinuation of Levemir. Patient has continues BS monitoring. Patient saw hand surgeon for right hand pain and locking up of right 3 digit. Patient received a shot at the base of right third digit and was sent to physical therapy where she was provided with splints to wear. Patient is scheduled for follow up on 08/31. Patient reports skin lesion to left jaw line that has been present for years but patient thinks it is getting bigger. Patient denies pain or discoloration. Patient is scheduled for mammogram in October. MARIA LUISA Leigh [address], [employer], [place], [address], [facility] 08/17/2024 12:03:43 12/14/2024 text/html Patient is a 64 year old female that presents to the office for sick visit. Patient reports productive cough with green sputum for about 10 days. Patient reports SOB but also has COPD. Patient reports chills but denies known fevers. Patient reports acid diarrhea when symptoms first started but that stopped last night. Patient denies CP, nausea and vomiting, sore throat and ear pain. Patient has been taking several OTC medications without relief of symptoms. Patient denies known sick contacts. MARIA LUISA Leigh [address], [employer], [place], [address], [facility] 12/15/2024 08:59:29 01/26/2025 text/html Patient is a 64 year old female that presents to the office for annual wellness. Patient reports she is doing well on current medications and has no concerns at this time. labs- orderedWWE-hysterecto my-Mammogram- UTD (10/2024)Colonoscopy- scheduled MarchDEXA-ordered ([facility])Flu-declinesC ovid-declinesTdap- UTD (2023)Shingles-UTDPne umonia- UTD MARIA LUISA eLigh [address], [address], [place], [address], [facility] 01/27/2025 08:54:55 OBGyn Episode No OBEpisode recorded.
--- OUTSIDE RECORDS SUMMARY | 2025-03-29 02:23 | XMS_ITS | Referral Summary ---
Author Organization [facility] Address [facility] [place] [address] Care Team Providers Care Director Medical Name Role Phone Sarah Regan NP Primary Care Provider + [phone] Allergies No known active allergies Medications amitriptyline (ELAVIL) 25 mg tablet TK 1 T PO QD PRN 9 Active atorvastatin (LIPITOR) 80 mg tablet TK 1 T PO QD 0 Active buprenorphine (BUTRANS) 5 mcg/hour APPLY 1 PATCH UTD Q WEEK 0 Active BYETTA 10 mcg/dose(250 mcg/mL) 2.4 mL injection INJECT 10 MCG UNDER THE SKIN BID 9 Active fluticasone propionate (FLONASE) 50 mcg/actuation nasal spray SHAKE LQ AND U 2 SPRAYS IEN QD 0 Active ibuprofen (ADVIL,MOTRIN) 800 mg tablet TK 1 T PO TID PRN P 9 Active LEVEMIR FLEXTOUCH U-100 INSULN 100 unit/mL (3 mL) insulin pen Inject 85 Units under the skin 2 (two) times a day 0 Active omeprazole (PriLOSEC) 40 mg capsule TK 1 C PO QD 0 Active SYMBICORT 160-4.5 mcg/actuation inhaler INHALE 2 PUFFS PO BID 9 Active PROAIR HFA 90 mcg/actuation inhaler INL 1 TO 2 PFS PO Q 4 H PRN 9 Active aspirin 81 mg enteric coated tablet Take 1 tablet (81 mg total) by mouth daily 30 tablet 11 0 Active buPROPion (WELLBUTRIN) 75 mg tablet Take 2 tablets (150 mg total) by mouth daily Active omega-3 fatty acids-fish oil 300-1,000 mg capsule Take 2 capsules (2 g total) by mouth daily Active latbqjxw-rat-VE -lycopen-lutein 0.4-300-250 mg-mcg-mcg tabletIndicatio ns:Vitamin Deficiency Prevention 1 tablet Active calcium carbonate (CALCIUM 600 ORAL) Take by mouth Active glucosamine sulfate 1,000 mg capsule Take 1 capsule by mouth daily Active Mounjaro 7.5 mg/0.5 mL pen injector ADMINISTER 7.5 MG UNDER THE SKIN EVERY WEEK 3 Active dulaglutide (TRULICITY) 0.75 mg/0.5 mL pen injector Inject 0.5 mL (0.75 mg total) under the skin once a week Active dilTIAZem CD/XR/XT (DILT-XR) 120 mg 24 hr capsule TAKE 1 CAPSULE(120 MG) BY MOUTH DAILY 30 capsule 4 5 Active metoprolol XL (TOPROL-XL) 100 mg 24 hr tablet TAKE 1 TABLET(100 MG) BY MOUTH DAILY 90 tablet 3 5 Active Active Problems No known active problems Social History Tobacco Use Types Packs/Day Years Used Date Smoking Tobacco: Former Cigarettes Q uit: 06/17/2018 E-cigarettes Smokeless Tobacco: Current Tobacco Cessation:Ready to Q uit: Not Asked; Counseling Given: Not Answered Alcohol Use Standard Drinks/Week Comments Not Currently 0 (1 standard drink = 0.6 oz pur e alcohol) Comments Unknown Sex and Gender Information Value Date Recorded Sex Assigned at Not on file Legal Sex 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 Gender Identity Not on file Sexual Orientation Not on file Last Filed Vital Signs Vital Sign Reading Time Taken Comments Blood Pressure 106/68 11/17/2024 9:43 AM WINDOW SHADE CUTTER AND MOUNTER Pulse 68 11/17/2024 9:43 AM WINDOW SHADE CUTTER AND MOUNTER Temperature - - Respiratory Rate - - Oxygen Saturation 94% 11/17/2024 9:43 AM WINDOW SHADE CUTTER AND MOUNTER Inhaled Oxygen Concentration - - Weight 64.9 kg (143 lb) 11/17/2024 9:43 AM WINDOW SHADE CUTTER AND MOUNTER Height 160 cm (5' 3) 11/17/2024 9:43 AM WINDOW SHADE CUTTER AND MOUNTER Body Mass Index 25.33 11/17/2024 9:43 AM WINDOW SHADE CUTTER AND MOUNTER Plan of Treatment Not on file Procedures Procedure Name Priority Date/Time Associated Diagnosis Comments LIPID PANEL Routine 11/17/2024 9:37 AM WINDOW SHADE CUTTER AND MOUNTER from Last 3 Months or Most Recently Relevant to Health Maintenance Results * Lipid panel (11/17/2024 9:37 AM WINDOW SHADE CUTTER AND MOUNTER) SCRIBED Cholesterol, Total 147 <100 EXTERNAL LAB SCRIBED HDL 43 >50 EXTERNAL LAB SCRIBED LDL 84 <100 EXTERNAL LAB SCRIBED Triglycerides 99 <150 EXTERNAL LAB Blood 11/17/2024 9:37 AM WINDOW SHADE CUTTER AND MOUNTER us Jassi Saldivar MD LAB BLOOD ORDERABLES Final Resul t Performing Organization Address City/State/[facility] Co de Phone Number EXTERNAL LAB from Last 3 Months or Most Recently Relevant to Health Maintenance Insurance [facility] MDCR HMO REF IDPA IDPA [facility] MEDICARE ADVANTAGE [facility] MEDICARE ADVANTAGE Care Teams Director Medical Relationship Specialty Start Date End Date Sarah Regan NP [address] [place] [id number] PCP - General Family Medicine 11/17/24
--- OUTSIDE RECORDS SUMMARY | 2025-03-29 02:23 | XMS_ITS | Clinical Summary ---
Author Organization [email or web address] Address [address] [facility] [place] [address] Care Team Providers Care Electric Dolly Operator Name Role Phone Rodolfo Medellin MD Primary Care Provider [phone] Source Comments [email or web address],non-owned Affiliates and Associated Physician Practices is amultiple site organization consisting of ambulatory clinics and hospital sitesin [place], [place], [place] and [place]. This disclosure is being madepursuant to the Care Everywhere program and may not contain all information available regarding this patient. Last updated 18.[email or web address] Allergies No known active allergies Medications * Be aware that medications may not be up to date on this document. Alwaysverify current medications with the patient. aspirin 81 MG chew tablet Take 81 mg by mouth daily. Active buPROPion (WELLBUTRIN) 100 MG tablet Take 200 mg by mouth daily. 1 Active glipiZIDE (GLUCOTROL) 10 MG tablet Take 20 mg by mouth 2 times daily before meals. 1 Active ibuprofen (MOTRIN) 800 MG tablet Take 800 mg by mouth every 6 hours as needed. Active imipramine (TOFRANIL) 25 MG tablet Take 25 mg by mouth at bedtime. Active lisinopril (PRINIVIL;ZESTRIL ) 5 MG tablet Take 5 mg by mouth daily. Active simvastatin (ZOCOR) 40 MG tablet Take 40 mg by mouth daily. 1 Active traZODone (DESYREL) 50 MG tablet Take 50 mg by mouth at bedtime. Active multivitamin daily (THERAGRAN) tablet Take 1 Tab by mouth daily with food. Active albuterol HFA (PROAIR HFA) 108 (90 BASE) MCG/ACT inhaler Inhale 2 Puffs by mouth 2 times daily. 1 Active beclomethasone dipropionate (QVAR) 80 MCG/ACT inhaler Inhale 2 Puffs by mouth 2 times daily. Active metFORMIN (GLUCOPHAGE) 500 MG tablet Take 2 Tabs by mouth 2 times daily with breakfast and dinner. 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 Gender Identity Not on file Sexual Orientation Not on file Last Filed Vital Signs Vital Sign Reading Time Taken Comments Blood Pressure 110/62 02/13/2011 1:30 PM CDT Pulse 107 02/13/2011 1:30 PM CDT Temperature 36.7 C (98 F) 02/13/2011 1:30 PM CDT Respiratory Rate 20 02/13/2011 1:30 PM CDT Oxygen Saturation 95% 02/13/2011 1:30 PM CDT Inhaled Oxygen Concentration - - Weight 73.5 kg (162 lb) 02/13/2011 7:57 AM CDT Height 160 cm (5' 3) 02/12/2011 4:32 PM CDT Body Mass Index 28.7 02/12/2011 4:32 PM CDT Plan of Treatment Health Maintenance Due Date Last Done Comments BONE DENSITY TESTING 1960 COLOGUARD (AGES 45-75) - COL ON CA SCREENING 1959 COLON MONITORING 1959 COLONOSCOPY - COLON CA SCREENING 1959 CT COLONOGRAPHY - COLON CA SCREENING 1959 Colorectal Cancer Screening 1959 FIT - COLON CA SCREENING 1959 FLEX SIG - COLON CA SCREENING 1959 MAMMOGRAM 1959 HIV SCREENING 1974 HEPATITIS C SCREENING 05/22/1977 DTAP/TDAP/TD VACCINES (1 - Tdap) 1978 PNEUMOCOCCAL VACCINE 50+ (1 of 1 - PCV) 2009 ZOSTER VACCINE (1 of 2) 2009 COVID-19 VACCINE (1 - 2023-2 5 season) 2024 DEPRESSION SCREENING 10/13/2024 INFLUENZA VACCINE (Season Ended) 2025 Respiratory Syncytial Virus (RSV) Vaccine Pt: or over 60 yrs (1 - 1-dose 75+ series) 2034 HEPATITIS B VACCINE Aged Out No longe r eligible based on patient's age to complete this topic HIB VACCINE Aged Out No longer eligi ble based on patient's age to complete this topic HPV VACCINE Aged Out No longer eligi ble based on patient's age to complete this topic MENINGOCOCCAL (Group B) VACC INE SHARED DECISION-MAKING Aged Out No longer eligibl e based on patient's age to complete this topic MENINGOCOCCAL GROUPS A/C/Y/W VACCINE Aged Out No longer eligible b ased on patient's age to complete this topic Insurance Care Teams Electric Dolly Operator Relationship Specialty Start Date End Date Rodolfo Medellin MD [address] [facility] [address] [place] [address] PCP - General 02/28/11
--- OUTSIDE RECORDS SUMMARY | 2025-03-29 02:23 | XMS_ITS | Clinical Summary ---
Author Organization [facility] Address [facility] [place] [address] Care Team Providers Care Body And Frame Technician Name Role Phone Sarah Regan NP Primary Care Provider [phone] Allergies No known active allergies Medications amitriptyline [...] (2 g total) by mouth daily Active xpogrlka-wil-UQ -lycopen-lutein 0.4-300-250 mg-mcg-mcg tabletIndicatio ns:Vitamin Deficiency Prevention [...] Active Active Problems No known active problems Surgical History Surgery Date Site/Laterality Comments SECTION HYSTERECTOMY Medical History Medical History Date Comments Arthritis COPD (chronic obstructive pulmonary disease) (HC C) Diabetes mellitus (HCC) Hypertension Pneumonia Neuromuscular disorder (HCC) Urinary tract infection Hyperlipidemia Acid indigestion Family History Medical History Relation Name Comments Diabetes Brother 1 Diabetes Brother 2 Heart disease Brother 2 No Known Problems Brother 3 Cancer Father Diabetes Father Hypertension Father Stroke Father Hypertension Mother Relation Name Status Comments Brother 1 Alive Brother 2 Alive Brother 3 Alive Father Alive Mother Alive Social History Tobacco Use Types Packs/Day Years [...] on file Legal Sex Female 8:18 PM 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 Gender Identity Not on file Sexual Orientation Not on file Obstetrics History Last Filed Vital Signs Vital Sign Reading Time Taken Comments Blood Pressure 106/68 11/17/2024 9:43 AM 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 Pulse 68 11/17/2024 9:43 AM 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 Temperature - - Respiratory Rate - - Oxygen Saturation 94% 11/17/2024 9:43 AM 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 Inhaled Oxygen Concentration - - Weight 64.9 kg (143 lb) 11/17/2024 9:43 AM 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 Height 160 cm (5' 3) 11/17/2024 9:43 AM 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 Body Mass Index 25.33 11/17/2024 9:43 AM 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 Plan of Treatment Health Maintenance Due Date Last Done Comments Albumin Creatinine Ratio, Urine 1960 Breast Cancer Screening-Mammogram 1959 Colon Cancer Screening-Colonoscopy 1959 Depression Screening 1959 Fall Risk Assessment 1959 Hemoglobin A1C 1959 Hepatitis C Screening 1959 Osteoporosis Screening-Bone Density Scan 1959 eGFR 1959 Dilated Eye Exam 1959 Foot Exam 1959 Hepatitis B Screening 1977 Zoster Vaccine (2 of 3) 10/12/2017 08/17/2017 DTaP/Tdap/Td Vaccine (2 - Td or Tdap) 07/21/2022 07/21/2012 Pneumococcal vaccine 65+ (3 of 3 - PCV20 or PCV21) 11/25/2022 11/25/2017, 10/13/2010 Well Visit 65+ 2024 Influenza Vaccine (Season Ended) 2025 07/01/2022, 07/11/2021, 07/18/2020, Additional history exists Lipid Panel 11/17/2025 11/17/2024, 03/14, 02/20/2022, Additional history exists Procedures Procedure Name Priority Date/Time Associated Diagnosis Comments LIPID PANEL Routine 11/17/2024 9:37 AM 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 from Last 3 Months or Most Recently Relevant to Health Maintenance Results * Lipid panel (11/17/2024 9:37 AM 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) SCRIBED Cholesterol, Total 147 <100 EXTERNAL LAB SCRIBED HDL 43 >50 EXTERNAL LAB SCRIBED LDL 84 <100 EXTERNAL LAB SCRIBED Triglycerides 99 <150 EXTERNAL LAB Blood 11/17/2024 9:37 AM 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 us Jassi Saldivar MD LAB BLOOD ORDERABLES Final Resul t EXTERNAL LAB from Last 3 Months or Most Recently Relevant to Health Maintenance Insurance [facility] MDCR HMO REF IDPA IDPA [facility] MEDICARE ADVANTAGE [facility] MEDICARE ADVANTAGE Care Teams Body And Frame Technician Relationship Specialty Start Date End Date Sarah Regan NP [address] [place] [address] PCP - General Family Medicine 11/17/24
[2025-03-29 10:02] VITALS: BP 104/65; PULSE 71; RESP 18; TEMP 36.6; O2SAT 94
--- NOTE | 2025-03-29 10:18 | P.PNAN_ITS ---
Anes - Initial Pre Proc Eval Procedure: Operation Date: 03/29/25 11:30 Proposed Procedures p Screening Colonoscopy - Rigo Persaud MD Date/Time: 03/29/25 10:18 Surgeon: Rigo Persaud MD Pre Op Diagnosis: Personal Hx of polyps, Hx of malignant neoplasm Patient Data Age: 64 Gender: F Height: 1.6 m Weight: 61.8 kg Last Vital Signs Temp 36.6 C 03/29/25 10:02 Pulse 71 03/29/25 10:02 Resp 18 03/29/25 10:02 BP 104/65 03/29/25 10:02 Pulse Ox 94 03/29/25 10:02 O2 Del Method Room Air 03/29/25 10:02 Allergies Allergy/AdvReac Type Severity Reaction Status Date / Time No Known Allergies Allergy Unknown Verified 03/29/25 09:58 Home Medications ?Medication ?Instructions ?Recorded ?Confirmed ?Type albuterol sulfate 90 mcg/actuation 2 puff inhalation QID PRN 09/11/19 03/14/25 History aerosol inhaler (ProAir HFA) Shortness Of Breath amitriptyline 25 mg tablet 25 mg PO DAILY 09/11/19 03/29/25 History budesonide-formoterol HFA 160 2 puff inhalation Q12H 09/11/19 03/29/25 History mcg-4.5 mcg/actuation aerosol inhaler (Symbicort) buprenorphine 5 mcg/hour weekly 5 mcg transdermal WEEKLY 09/11/19 03/14/25 History transdermal patch bupropion HCl 75 mg tablet 150 mg PO DAILY 09/11/19 03/29/25 History ibuprofen 800 mg tablet 800 mg PO TID PRN Back Pain 09/11/19 03/14/25 History omeprazole 40 mg capsule,delayed 40 mg PO DAILY 09/11/19 03/29/25 History release aspirin 81 mg capsule 81 mg PO DAILY 10/15/21 03/29/25 History calcium carbonate 250 mg PO DAILY PRN Acid Reflux 10/15/21 03/29/25 History diltiazem HCl 120 mg 120 mg PO DAILY 10/15/21 03/29/25 History capsule,extended release 24 hr fluticasone propionate 50 1 spray intranasal DAILY 10/15/21 03/14/25 History mcg/actuation nasal spray,suspension krill 1 cap PO DAILY 10/15/21 03/29/25 History tvt-pa-9-ywu-ynq-ueqtzrnqiwteo 300 mg-90 mg-24 mg-50 mg capsule (krill oil) lactobacillus combination no.8 3 1 cell PO DAILY 10/15/21 03/29/25 History billion cell capsule metoprolol succinate 100 mg 100 mg PO DAILY 10/15/21 03/29/25 History tablet,extended release 24 hr multivitamin with minerals-folic 1 tablet PO DAILY 10/15/21 03/29/25 History acid 0.4 mg tablet psyllium husk 0.52 gram capsule 0.52 g PO DAILY 10/15/21 03/29/25 History (Fiber-Caps (psyllium husk)) dulaglutide 3 mg/0.5 mL 4.5 mg subcut WEEKLY 03/14/25 03/29/25 History subcutaneous pen injector (Trulicity) insulin glargine 100 unit/mL (3 85 unit subcut DAILY 03/14/25 03/29/25 History mL) subcutaneous pen (Lantus Solostar U-100 Insulin) loratadine 10 mg tablet (Claritin) 10 mg PO DAILY 03/14/25 03/29/25 History rosuvastatin 10 mg tablet 10 mg PO DAILY 03/14/25 03/29/25 History Patient hx anesthesia problems: none Family hx anesthesia problems: none Results Review: All pre-operative results and documents have been reviewed as part of the pre- operative evaluation. [facility] Past Medical History Medical History Shingles Anxiety Depression IDDM (insulin dependent diabetes mellitus) Poorly controlled Arthritis Fibromyalgia History of emphysema COPD (chronic obstructive pulmonary disease) HTN (hypertension) HLD (hyperlipidemia) Surgical History Surgical History Labial abscess Hx of abdominoplasty History of bladder surgery Repair of injury associated with laparoscopic hysterectomy performed at the same time as the hysterectomy History of x2 H/O: hysterectomy Laparoscopic hysterectomy with bilateral salpingo-oophorectomy August 2011 due to dysfunctional uterine bleeding urine and uterine polyps H/O cardiac catheterization Family History Family History Father High cholesterol Diabetes mellitus Cerebrovascular accident Sibling Diabetes mellitus Mother Hypertension Social History Social History Social History: The patient lives in her own home and has a large dog who is 12 years. Her grandchildren come over on the weekends and stay with her. She has 2 children who are reportedly healthy. She quit smoking 1 year ago prior to quitting she smoked 1 pack per day since she was 14 years old. She rarely drinks alcohol. She is on disability due to fibromyalgia, and arthritis. The patient's primary care physician is Dr. Magdalena Orlando. Code status is full code. Smoking packs per day: 1.5 Smoking cigarettes per day: 30.0 Years smoked: 47 Smoking pack-years: 70.50 Smoking status: Former smoker Tobacco type: cigarettes Additional smoking assessment comments: CURRENTLY VAPING Alcohol intake: never Substance use: never Substance use type: does not use Living arrangements: with family Gender identity (if verbalized by the patient): Female Spiritual care concerns: No Agree to blood products: Yes Anes - Eval Final PreProcedure Day of Procedure 03/29/25 10:18 Patient weight: normal Heart: regular rate and rhythm Lungs: decreased breath sounds Airway: Mallampati scale class II Neurological: alert and oriented Last oral intake: >/= 8 hours ASA classification: III Emergent: no Anesthetic plan: proceed Anesthesia type and monitoring: general and standard monitoring Results Review: All pre-operative results and documents have been reviewed as part of the pre- operative evaluation. Informed Consent: The patient's anesthetic plan and its attendant risks and benefits were discussed with the patient/family/POA. Questions were solicited and answers provided to the satisfaction of the patient/family/POA.
[2025-03-29] MEDS: LACTATED RINGERS 1,000 ML 150 ML IV CONT (10:21)
[2025-03-29] MEDS: INSULIN HUMAN REGULAR (*BKC) 100 UNITS/ML 8 UNITS SUB-Q (10:25)
--- NOTE | 2025-03-29 10:41 | PM.IMHP ---
H&P: HPI History of Present Illness Date/Time: 03/29/25 10:41 Chief Complaint: History of colon polyps Narrative: The patient has a history of colonic polyps, the last colonoscopy was 5 years ago. Review of Systems Review of Systems: All systems reviewed & are unremarkable except as noted in HPI and below PMFSH Past Medical History Medical History Shingles Anxiety Depression IDDM (insulin dependent diabetes mellitus) Poorly controlled Arthritis Fibromyalgia History of emphysema COPD (chronic obstructive pulmonary disease) HTN (hypertension) HLD (hyperlipidemia) Surgical History Surgical History Labial abscess Hx of abdominoplasty History of bladder surgery Repair of injury associated with laparoscopic hysterectomy performed at the same time as the hysterectomy History of x2 H/O: hysterectomy Laparoscopic hysterectomy with bilateral salpingo-oophorectomy August 2011 due to dysfunctional uterine bleeding urine and uterine polyps H/O cardiac catheterization Family History Family History Father High cholesterol Diabetes mellitus Cerebrovascular accident Sibling Diabetes mellitus Mother Hypertension Social History Social History Social History: The patient lives in her own home and has a large dog who is 12 years. Her grandchildren come over on the weekends and stay with her. She has 2 children who are reportedly healthy. She quit smoking 1 year ago prior to quitting she smoked 1 pack per day since she was 14 years old. She rarely drinks alcohol. She is on disability due to fibromyalgia, and arthritis. The patient's primary care physician is Dr. Magdalena Orlando. Code status is full code. Smoking packs per day: 1.5 Smoking cigarettes per day: 30.0 Years smoked: 47 Smoking pack-years: 70.50 Smoking status: Former smoker Tobacco type: cigarettes Additional smoking assessment comments: CURRENTLY VAPING Alcohol intake: never Substance use: never Substance use type: does not use Living arrangements: with family Gender identity (if verbalized by the patient): Female Spiritual care concerns: No Agree to blood products: Yes Meds Home Medications and Allergies Home Medications ?Medication ?Instructions ?Recorded ?Confirmed ?Type albuterol sulfate 90 mcg/actuation 2 puff inhalation QID PRN 09/11/19 03/14/25 History aerosol inhaler (ProAir HFA) Shortness Of Breath amitriptyline 25 mg tablet 25 mg PO DAILY 09/11/19 03/29/25 History budesonide-formoterol HFA 160 2 puff inhalation Q12H 09/11/19 03/29/25 History mcg-4.5 mcg/actuation aerosol inhaler (Symbicort) buprenorphine 5 mcg/hour weekly 5 mcg transdermal WEEKLY 09/11/19 03/14/25 History transdermal patch bupropion HCl 75 mg tablet 150 mg PO DAILY 09/11/19 03/29/25 History ibuprofen 800 mg tablet 800 mg PO TID PRN Back Pain 09/11/19 03/14/25 History omeprazole 40 mg capsule,delayed 40 mg PO DAILY 09/11/19 03/29/25 History release aspirin 81 mg capsule 81 mg PO DAILY 10/15/21 03/29/25 History calcium carbonate 250 mg PO DAILY PRN Acid Reflux 10/15/21 03/29/25 History diltiazem HCl 120 mg 120 mg PO DAILY 10/15/21 03/29/25 History capsule,extended release 24 hr fluticasone propionate 50 1 spray intranasal DAILY 10/15/21 03/14/25 History mcg/actuation nasal spray,suspension krill 1 cap PO DAILY 10/15/21 03/29/25 History xoj-qv-3-wzh-nqj-dwyexhkopxhxh 300 mg-90 mg-24 mg-50 mg capsule (krill oil) lactobacillus combination no.8 3 1 cell PO DAILY 10/15/21 03/29/25 History billion cell capsule metoprolol succinate 100 mg 100 mg PO DAILY 10/15/21 03/29/25 History tablet,extended release 24 hr multivitamin with minerals-folic 1 tablet PO DAILY 10/15/21 03/29/25 History acid 0.4 mg tablet psyllium husk 0.52 gram capsule 0.52 g PO DAILY 10/15/21 03/29/25 History (Fiber-Caps (psyllium husk)) dulaglutide 3 mg/0.5 mL 4.5 mg subcut WEEKLY 03/14/25 03/29/25 History subcutaneous pen injector (Trulicity) insulin glargine 100 unit/mL (3 85 unit subcut DAILY 03/14/25 03/29/25 History mL) subcutaneous pen (Lantus Solostar U-100 Insulin) loratadine 10 mg tablet (Claritin) 10 mg PO DAILY 03/14/25 03/29/25 History rosuvastatin 10 mg tablet 10 mg PO DAILY 03/14/25 03/29/25 History Allergies Allergy/AdvReac Type Severity Reaction Status Date / Time No Known Allergies Allergy Unknown Verified 03/29/25 09:58 Vital Signs Vital Signs - 24 hr 03/29/25 10:02 Temperature 97.9 F Pulse Rate 71 Respiratory Rate 18 Blood Pressure 104/65 Pulse Oximetry 94 Oxygen Delivery Room Air Exam Const: General: cooperative and healthy appearing Resp: Effort & Inspection: normal respiratory effort and able to speak in complete sentences Auscultation: clear to auscultation bilaterally Cardio: Rate: regular rate Rhythm: regular rhythm GI: Inspection: normal to inspection GI Palp: No No hepatosplenomegaly present Auscultation: normal bowel sounds Rectal Exam: deferred Skin: General skin exam: normal color Psych: Appearance: grossly normal Mental Status: mental status grossly normal Assessment and Plan Assessment and plan (1) History of colon polyps: Code(s): Z86.010 - Personal history of colon polyps Status: Acute Assessment and Plan: The patient is deemed a good candidate for the procedure. Consent signed. Will proceed.
--- NOTE | 2025-03-29 11:09 | S_PTH ---
PATIENT: Xochitl Galdamez LOC: DEANNE Gann#:[id number] AGE/SX: 64/F ROOM: RE03/29/[address]: Rigo Persaud MD : 1960 BED: DIS: 03/29/2025 SPEC #: [id number] RECD: 03/29/25 11:32 STATUS: MARTIN REYoshi #: [id number] KENNY: 03/29/25 11:[address]: Rigo Persaud DEPT: [facility] Surgical RECD BY: Armaan Rondon ENTERED: 03/29/25 11:32 SP TYPE: Surgical OTHR DR: Sarah Regan, DRYWALL CARRIER Tissues: A - Colon Polypectomy Procedures: Hematoxylin and Eosin Stain Gross and Microscopic Level 4
[2025-03-29 11:11] VITALS: BP 89/53; PULSE 68; RESP 20; O2SAT 92
[2025-03-29 11:21] VITALS: BP 97/61; PULSE 66; RESP 19; O2SAT 92
[2025-03-29 11:23] LABS: Glucose Point of Care 215 mg/dl (65-105)
[2025-03-29 11:31] VITALS: BP 97/59; PULSE 67; RESP 22; O2SAT 99
[2025-03-29 11:45] VITALS: BP 111/69
== END 2025-03-29 11:46 | disposition home or self-care (01) ==
PROVIDERS: PCP Nurse Practitioner Family; Referring Provider Internal Medicine Gastroenterology; Visit Provider Internal Medicine Gastroenterology
PROC: 0DJD8ZZ Inspection of Lower Intestinal Tract, Via Natural or Artificial Opening Endoscopic (ICD-10-PCS; CPT 45378; principal; 2025-03-29 11:30)
DX: Z12.11 Encounter for screening for malignant neoplasm of colon (principal); K63.5 Polyp of colon; K57.30 Diverticulosis of large intestine without perforation or abscess without bleeding; E11.9 Type 2 diabetes mellitus without complications; F17.290 Nicotine dependence, other tobacco product, uncomplicated
CPT/HCPCS: 45385; 82948; 88305; J1815; J2003; J2704; J7120

== ENCOUNTER 2025-04-13 08:16 | Outpatient (CLI) | payer MEDICARE, MEDICAID, SELFPAY ==
--- NOTE | ~2025-04-13 | DEXA_ITS ---
Bone Density Report Name: CADEN BAILEY Age: 64 Sex: Female Ethnicity: White Date of : 1960 Indication: osteopenia; Referring Provider: BRUCE, CARMEN Gramajo Study: Bone densitometry was performed. Exam Date: April 13, 2025 Accession number: [id number] Bone Density: Region BMD T-score Z-score Classification AP Spine(L1-L4) 1.001 -0.4 1.4 Normal Femoral Neck (Left) 0.616 -2.1 -0.5 Osteopenia Total Hip (Left) 0.780 -1.3 -0.1 Osteopenia Femoral Neck (Right) 0.643 -1.9 -0.3 Osteopenia Total Hip (Right) 0.768 -1.4 -0.2 Osteopenia Total Hip Mean 0.774 -1.4 -0.2 Osteopenia World Health Organization criteria for BMD impression classify patients as: Normal (T-score at or above -1.0), Osteopenia (T-score between -1.0 and -2.5), or Osteoporosis (T-score at or below -2.5). 10-year Fracture Risk(1): Major Osteoporotic Fracture 11% Hip Fracture 1.8% Reported Risk Factors: [place] (), Neck BMD=0.616, BMI=24.9 (1) FRAX(R) Version 3.08. Fracture probability calculated for an untreated patient. Fracture probability may be lower if the patient has received treatment. Previous Exams: Region Exam Age BMD T-score BMD Change BMD Change Date g/cm2 vs Baseline vs Previous AP Spine (L1-L4) 04/13/2025 64 1.001 -0.4 0.036 (3.7%)* 0.036 (3.7%)* 07/23/2017 57 0.966 -0.7 Total Hip(Left) 04/13/2025 64 0.780 -1.3 -0.050 (-6.0%) -0.014 (-1.8%) 09/28/2021 61 0.794 -1.2 -0.036 (-4.3%) -0.036 (-4.3%) 07/23/2017 57 0.830 -0.9 Total Hip(Right) 04/13/2025 64 0.768 -1.4 -0.044 (-5.4%) -0.021 (-2.7%) 09/28/2021 61 0.789 -1.3 -0.023 (-2.8%) -0.023 (-2.8%) 07/23/2017 57 0.811 -1.1 *Denotes significance at 95% confidence level, LSC for AP Spine = 0.022 g/cm2, LSC for Total Hip = 0.027 g/cm2 Impression: The patient has low bone mass, based on the Left Femoral Neck T-score. The patient has an estimated ten-year risk of hip fracture of 1.8% and an estimated ten-year risk of major fracture of 11%, based on the WHO FRAX algorithm. No significant bone loss was observed. Discussion: BONE DENSITY IS LOW AT ONE OR MORE SKELETAL SITES. This patient's lowest T-score is low at one or more skeletal sites. It meets the World Health Organization's (WHO) criteria for ?low bone mass? (T-score between -1.0 and -2.5). The patient's 10-year risk of fracture as calculated by FRAX is less than the threshold where pharmacological therapy is recommended by the National Osteoporosis Foundation (NOF). However, all treatment decisions require clinical judgment and consideration of individual patient factors, including patient preferences, comorbidities, previous drug use, risk factors not captured in the FRAX model (e.g., frailty, falls, vitamin D deficiency, increased bone turnover, interval significant decline in bone density) and possible under or overestimation of fracture risk by FRAX. The patient should follow a healthful lifestyle (good nutrition with adequate calcium and vitamin D, and appropriate weight-bearing exercise). Follow-Up: Consider repeating this study in 2 to 3 years to reassess this patient's status, or sooner if there is some new clinical indication. Reported by: WILLIAMS on 04/13/2025 8:53:00 AM. Reviewed, dictated and finalized at location A.
--- OUTSIDE RECORDS SUMMARY | 2025-04-13 08:21 | XMS_ITS | Clinical Summary ---
Author Organization [facility] Address [place] [address] Care Team Providers Care Lead Software Engineer Name Role Phone Sarah Regan NP Primary Care Provider + [phone] Allergies No known active allergies Medications amitriptyline [...] (2 g total) by mouth daily Active [id number]-EP -lycopen-lutein 0.4-300-250 mg-mcg-mcg tabletIndicatio ns:Vitamin Deficiency Prevention [...] on file Legal Sex Female 8:18 PM JANITOR CARETAKER Gender Identity Not on file Sexual Orientation Not on file Obstetrics History Last Filed Vital Signs Vital Sign Reading Time Taken Comments Blood Pressure 106/68 11/17/2024 9:43 AM JANITOR CARETAKER Pulse 68 11/17/2024 9:43 AM JANITOR CARETAKER Temperature - - Respiratory Rate - - Oxygen Saturation 94% 11/17/2024 9:43 AM JANITOR CARETAKER Inhaled Oxygen Concentration - - Weight 64.9 kg (143 lb) 11/17/2024 9:43 AM JANITOR CARETAKER Height 160 cm (5' 3) 11/17/2024 9:43 AM JANITOR CARETAKER Body Mass Index 25.33 11/17/2024 9:43 AM JANITOR CARETAKER Plan of Treatment Health Maintenance Due Date [...] Comments LIPID PANEL Routine 11/17/2024 9:37 AM JANITOR CARETAKER from Last 3 Months or Most Recently Relevant to Health Maintenance Results * Lipid panel (11/17/2024 9:37 AM JANITOR CARETAKER) SCRIBED Cholesterol, Total 147 <100 EXTERNAL LAB SCRIBED HDL 43 >50 EXTERNAL LAB SCRIBED LDL 84 <100 EXTERNAL LAB SCRIBED Triglycerides 99 <150 EXTERNAL LAB Blood 11/17/2024 9:37 AM JANITOR CARETAKER us Jassi Saldivar MD LAB BLOOD ORDERABLES Final Resul t EXTERNAL LAB from Last 3 Months or Most Recently Relevant to Health Maintenance Insurance [facility] MDCR HMO REF IDPA IDPA [facility] MEDICARE ADVANTAGE [facility] MEDICARE ADVANTAGE Care Teams Lead Software Engineer Relationship Specialty Start Date End Date Sarah Regan NP [address] [place] [address] PCP - General Family Medicine 11/17/24
--- OUTSIDE RECORDS SUMMARY | 2025-04-13 08:21 | XMS_ITS | Clinical Summary ---
Author Organization [facility] [employer] Address [address] [place] [address] Care Team Providers Care University Administrative Assistant Name Role Phone Rodolfo Medellin MD Primary Care Provider [phone] Source Comments [facility] [employer]non-owned Affiliates and Associated Physician Practices is amultiple site organization consisting of ambulatory clinics and hospital sitesin [place], [place], [place] and [place]. This disclosure is being madepursuant to the Care Everywhere program and may not contain all information available regarding this patient. Last updated 18.[facility] [employer] 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 UHC MANAGED MEDICARE ADV MEDICAID [place] SELF PAY NO INSURANCE Member Subscriber Plan / Payer (Ef fective for All Dates) Name:Rudolph Xochitl A Member ID:Not on file Relation to Subscriber:Not on file Name:RUDOLPHXOCHITL A Subscriber ID:Not on file (Home) Address: [address] [place] [id number] Payer ID:Not on file Group ID:Not on file Type:Self Pay Address: [place], [place] Care Teams University Administrative Assistant Relationship Specialty Start Date End Date Rodolfo Medellin MD [address] [place] [address] PCP - General 02/28/11
--- OUTSIDE RECORDS SUMMARY | 2025-04-13 08:21 | XMS_ITS | Referral Summary ---
Author Organization [facility] Address Pending sale to [facility] [place] [address] Care Team Providers Care Paint Roller Cover Machine Setter Name Role Phone Sarah Regan NP Primary Care Provider + [phone] Allergies No known active allergies Medications amitriptyline [...] (2 g total) by mouth daily Active hapmrzzw-qbf-JA -lycopen-lutein 0.4-300-250 mg-mcg-mcg tabletIndicatio ns:Vitamin Deficiency Prevention [...] on file Legal Sex Female 8:18 PM ONLINE RETAILER Gender Identity Not on file Sexual Orientation Not on file Last Filed Vital Signs Vital Sign Reading Time Taken Comments Blood Pressure 106/68 11/17/2024 9:43 AM ONLINE RETAILER Pulse 68 11/17/2024 9:43 AM ONLINE RETAILER Temperature - - Respiratory Rate - - Oxygen Saturation 94% 11/17/2024 9:43 AM ONLINE RETAILER Inhaled Oxygen Concentration - - Weight 64.9 kg (143 lb) 11/17/2024 9:43 AM ONLINE RETAILER Height 160 cm (5' 3) 11/17/2024 9:43 AM ONLINE RETAILER Body Mass Index 25.33 11/17/2024 9:43 AM ONLINE RETAILER Plan of Treatment Not on file Procedures Procedure Name Priority Date/Time Associated Diagnosis Comments LIPID PANEL Routine 11/17/2024 9:37 AM ONLINE RETAILER from Last 3 Months or Most Recently Relevant to Health Maintenance Results * Lipid panel (11/17/2024 9:37 AM ONLINE RETAILER) SCRIBED Cholesterol, Total 147 <100 EXTERNAL LAB SCRIBED HDL 43 >50 EXTERNAL LAB SCRIBED LDL 84 <100 EXTERNAL LAB SCRIBED Triglycerides 99 <150 EXTERNAL LAB Blood 11/17/2024 9:37 AM ONLINE RETAILER us Jassi Saldivar MD LAB BLOOD ORDERABLES Final Resul t Performing Organization Address City/State/[facility] Co de Phone Number EXTERNAL LAB from Last 3 Months or Most Recently Relevant to Health Maintenance Insurance [facility] MDCR HMO REF IDPA IDPA [facility] MEDICARE ADVANTAGE [facility] MEDICARE ADVANTAGE Care Teams Paint Roller Cover Machine Setter Relationship Specialty Start Date End Date Sarah Regan NP [address] [place] [id number] PCP - General Family Medicine 11/17/24
--- OUTSIDE RECORDS SUMMARY | 2025-04-13 08:21 | XMS_ITS | Data Portability ---
Author Organization [place] [facility], Main Office Address [address] [place] [address] Care Team Providers Care Supervisor Cell Efficiency Name Role Phone MAGDALENA ORLANDO Primary Care Provider [phone] Assessment No assessment recorded. Plan of Treatment Reminders Order Date Submit Date Provider Last Modified By Organization Details Last Modified Time Details Appointments Follow Up 15 2024 10:00A M Sarah Regan NP Not available Not available Not available Lab HbA1c (hemoglob in A1c), blood 2024 025 [facility], [address] , [place], [address], 01/27/2025 10:43:00 TSH, serum or plasma 2024 025 [facility], [address] , [place], [address], 01/27/2025 10:42:58 lipid panel, serum 2024 025 [facility], [address], [place], [address], 01/27/2025 10:42:54 CMP, serum or plasma 2024 025 [facility], [address] , [place], [address], 01/27/2025 10:42:55 vitamin D, 25-hydrox y, total, serum 2024 025 [facility], [address], [place], [address], 01/27/2025 10:42:59 CBC w/ auto diff 2024 025 [facility], [address], [place], [address], 01/27/2025 10:42:56 hepatitis C virus Ab, serum 2024 025 [facility], [address], [place], [address], 01/27/2025 10:42:57 calcium, ionized, blood 2023 024 [facility] (Lab), [address] [place], [address], 02/28/2024 18:57:04 vitamin D, 25-hydrox y, total, serum [email or web address] [place] [address] (Lab), [address] [place], [address], 03/02/2024 08:13:56 CBC w/ auto diff 2023 024 [facility] (Lab), [address] [place], [address], 02/24/2024 21:05:15 BMP, serum or plasma 2023 024 [facility] (Lab), [address] [place], [address], 02/24/2024 20:48:45 HbA1c (hemoglob in A1c), blood [email or web address] [place] [address] (Lab), [address] [place], [address], 03/02/2024 08:13:55 BMP, serum or plasma 2023 024 [facility] (Lab), [address] [place], [address], 02/24/2024 22:53:12 lipid panel, serum 2023 024 [facility] (Lab), [address] [place], [address], 02/24/2024 20:48:47 hepatic function panel, serum 2023 024 [facility] (Lab), [address] [place], [address], 02/24/2024 20:48:50 Referral pulmonolo gist referral - Please call patient to schedule an appointme nt. Thank you. 2024 025 [email or web address] Conner Diaz MD, [address] [place], [address], 02/02/2025 15:37:43 dermatolo gist referral - Please call patient to schedule an appointme nt. Thank you. 2023 024 [email or web address] Jody Weeks MD (Dermatology) , [address] [facility] [address], [address], [place], [address], 09/15/2024 09:17:37 hand surgeon referral - Please call patient to schedule an appointme nt. Thank you. 2023 024 [email or web address] Renata De Jesus MD, [address] [facility] [address], [place], [address], 06/23/2024 08:56:27 Procedures None recorded. Surgeries None recorded. Imaging DEXA - Please call patient to schedule. 2024 025 [facility], [address], [place], [address], 02/28/2025 16:08:43 XR, chest 2024 025 [facility], [address], [address], [place], [address], 12/15/2024 09:35:29 MAMMO, screening , digital, bilateral - *Please call pt to schedule* [email or web address] [place] [address] (Imaging), [address] [facility] [address], [place], [address], 06/30/2024 09:00:01 LDCT, chest, for lung cancer screening - *Please call pt to schedule* 2023 024 [facility] (Imaging), [address] [facility] [address], [place], [address], 06/12/2024 10:04:15 Medication Orders loratadin e 10 mg tablet 2024 025 [facility] #[id number], [address] [place] [address], [id number], 01/26/2025 09:10:50 fluticaso ne propionat e 50 mcg/actua tion nasal spray,jesus pension 2024 025 [facility] #00940, [address] [place] [address], [id number], 01/26/2025 09:10:48 prednison e 20 mg tablet 2024 025 [facility]92152, [address] [place] [address], [id number], 12/14/2024 16:46:33 Zithromax Z-Tomer 250 mg tablet 2024 025 [email or web address], [address] [place] [address], [id number], 01/26/2025 08:40:22 Lantus Solostar U-100 Insulin 100 unit/mL (3 mL) subcutane ous pen 2023 [facility] #11573, [address] [place], [place], [id number], 08/17/2024 12:03:20 buprenorp adelita 5 mcg/hour weekly transderm al patch 2023 024 [facility] #73435, [address] [place], [place], [id number], 08/17/2024 12:03:21 Symbicort 160 mcg-4.5 mcg/actua tion HFA aerosol inhaler 2023 [facility] #25214, [address] [place], [place], [id number], 05/26/2024 10:59:14 Patient TargetsNo targets recorded. Patient Instructions Encounter Date Encounter Id Patient Instructions Last Modified By Organization Details Last Modified Time 01/26/2025 [id number] dementia rating scale-2* [email or web address] Not available 01/26/2025 09:09:38 multi-dimensiona l health assessment questionnaire* [email or web address] Not available 01/26/2025 09:09:39 Reason for Referral Hand Surgeon Referral for Pa in in right hand right hand pain/trigger finger, would like injections, Pt was referred by Dr. Thibodeaux Please call patient to schedule an appointment. Thank you. Referring Physician: Jasiel Cullen [facility], Encounter Date: 05/26/2024 Senior Commissary Agent Referral for S kin lesion Please call patient to schedule an appointment. Thank you. Referring Physician: Sarah Regan [facility], Encounter Date: 08/17/2024 Molding Line Operator Referral for C hronic obstructive pulmonary disease Please call patient to schedule an appointment. Thank you. Referring Physician: Sarah Regan [facility], Encounter Date: 01/26/2025 Results Created Date Observation Date Name Description Value Unit Range Abnormal Flag Note LastModifiedBy Organization Detail LastModifiedTime 04/17/01/27/2025 LIPID PANEL (REFL ) cholesterol, total 137 mg/dL <200 normal Not Available [address] [address] [place], [address], 01/27/2025 10:42:54 01/28/20 25 01/27/2025 LIPID PANEL (REFL ) HDL cholesterol 47 mg/dL > or = 50 low Not Available [facility] [address] [address] [place], [address], 01/27/2025 10:42:54 01/28/20 25 01/27/2025 LIPID PANEL (REFL ) triglyceride s 164 mg/dL <150 high Not Available [facility] [address], [address], 01/27/2025 10:42:54 01/28/20 25 01/27/2025 LIPID PANEL (REFL ) LDL-choleste rol 66 mg/dL _(constantin c) normal Refer ence range : <100 Mae able range <100 mg/dL for prima ry preve ntion ; <70 mg/dL for patie nts with CHD or diabe tic patie nts with > or = 2 CHD risk facto rs. LDL-C is now calcu lated using the Kathy n-Hop kins calcu mindi n, which is a valid ated novel mirandao d inocencioi meaghan sara r accur acy than the Fried regla equat ion in the estim ation of LDL-C . Kathy ga SS et al. ANATOLIY. 2013; 310(1 9): 2061- 2068 (http ://ed ucati on.Qu Clint F3 Foodss. com/f aq/FA Q164) Not Available [facility] [address] [address] [place], [address], 01/27/2025 10:42:54 01/28/20 25 01/27/2025 LIPID PANEL (REFL ) chol/HDLC ratio 2.9 (calc ) <5.0 normal Not Available [facility] [address] [address] [place], [address], 01/27/2025 10:42:54 01/28/20 25 01/27/2025 LIPID PANEL (REFL ) non HDL cholesterol 90 mg/dL _(constantin c) <130 normal For patie nts with diabe jacqueline plus 1 major ASCVD risk facto r, treat ing to a non-H DL-C goal of <100 mg/dL (LDL- C of <70 mg/dL ) is consi megand a thera peuti c optio n. Not Available [address] [place], [address], 01/27/2025 10:42:54 01/28/20 25 01/27/2025 COMPR EHENS BLAIR METAB OLIC PANEL glucose 212 mg/dL 65-99 high Fasti ng refer ence inter carlene For someo ne witho ut known diabe jacqueline, a gluco se value >125 mg/dL indic ates that they may have diabe jacqueline and this shoul d be confi rmed with a follo w-up test. Not Available [address] [address] [address] [facility], [place], [address], 01/27/2025 10:42:55 01/28/20 25 01/27/2025 COMPR EHENS BLAIR METAB OLIC PANEL urea nitrogen (BUN) 12 mg/dL 7-25 normal Not Available [address] [address] [place], [address], 01/27/2025 10:42:55 01/28/20 25 01/27/2025 COMPR EHENS BLAIR METAB OLIC PANEL creatinine 0.80 mg/dL 0.50-1 .05 normal Not Available [facility] [address] [address] [place], [address], 01/27/2025 10:42:55 01/28/20 25 01/27/2025 COMPR EHENS BLAIR METAB OLIC PANEL eGFR 82 mL/mi n/1.7 3m2 > or = 60 normal Not Available [facility] [address] [address] [place], [address], 01/27/2025 10:42:55 01/28/20 25 01/27/2025 COMPR EHENS BLAIR METAB OLIC PANEL BUN/creatini ne ratio SEE NOTE: (calc ) 6-22 Not Repor meli: BUN and Creat inine are withi n refer ence range . Not Available [address], [address], 01/27/2025 10:42:55 01/28/20 25 01/27/2025 COMPR EHENS BLAIR METAB OLIC PANEL sodium 136 mmol/ L 135-14 6 normal Not Available [address], [address], 01/27/2025 10:42:55 01/28/20 25 01/27/2025 COMPR EHENS BLAIR METAB OLIC PANEL potassium 4.9 mmol/ L 3.5-5. 3 normal Not Available [address], [address], 01/27/2025 10:42:55 01/28/20 25 01/27/2025 COMPR EHENS BLAIR METAB OLIC PANEL chloride 98 mmol/ L 98-110 normal Not Available [address], [address], 01/27/2025 10:42:55 01/28/20 25 01/27/2025 COMPR EHENS BLAIR METAB OLIC PANEL carbon dioxide 29 mmol/ L 20-32 normal Not Available [address], [address], 01/27/2025 10:42:55 01/28/20 25 01/27/2025 COMPR EHENS BLAIR METAB OLIC PANEL calcium 9.4 mg/dL 8.6-10 .4 normal Not Available [address], [address], 01/27/2025 10:42:55 01/28/20 25 01/27/2025 COMPR EHENS BLAIR METAB OLIC PANEL protein, total 7.0 g/dL 6.1-8. 1 normal Not Available [address], [address], 01/27/2025 10:42:55 01/28/20 25 01/27/2025 COMPR EHENS BLAIR METAB OLIC PANEL albumin 4.2 g/dL 3.6-5. 1 normal Not Available [address], [address], 01/27/2025 10:42:55 01/28/20 25 01/27/2025 COMPR EHENS BLAIR METAB OLIC PANEL globulin 2.8 g/dL_ (calc ) 1.9-3. 7 normal Not Available [address], [address], 01/27/2025 10:42:55 01/28/20 25 01/27/2025 COMPR EHENS BLAIR METAB OLIC PANEL albumin/glob ulin ratio 1.5 (calc ) 1.0-2. 5 normal Not Available [address], [address], 01/27/2025 10:42:55 01/28/20 25 01/27/2025 COMPR EHENS BLAIR METAB OLIC PANEL bilirubin, total 0.5 mg/dL 0.2-1. 2 normal Not Available [address], [address], 01/27/2025 10:42:55 01/28/20 25 01/27/2025 COMPR EHENS BLAIR METAB OLIC PANEL alkaline phosphatase 117 U/L 37-153 normal Not Available [facility] [address], [address], 01/27/2025 10:42:55 01/28/20 25 01/27/2025 COMPR EHENS BLAIR METAB OLIC PANEL AST 65 U/L 10-35 high Not Available [address] [place], [address], 01/27/2025 10:42:55 01/28/20 25 01/27/2025 COMPR EHENS BLAIR METAB OLIC PANEL ALT 55 U/L 6-29 high Not Available [address], [address], 01/27/2025 10:42:55 01/28/20 25 01/27/2025 CBC (INCL UDES DIFF/ PLT) white blood cell count 10.3 thous and/u L 3.8-10 .8 normal Not Available [address], [address], 01/27/2025 10:42:56 01/28/20 25 01/27/2025 CBC (INCL UDES DIFF/ PLT) red blood cell count 5.17 anat on/uL 3.80-5 .10 high Not Available [address], [address], 01/27/2025 10:42:56 01/28/20 25 01/27/2025 CBC (INCL UDES DIFF/ PLT) hemoglobin 14.9 g/dL 11.7-1 5.5 normal Not Available [address], [address], 01/27/2025 10:42:56 01/28/20 25 01/27/2025 CBC (INCL UDES DIFF/ PLT) hematocrit 46.2 % 35.0-4 5.0 high Not Available [address], [address], 01/27/2025 10:42:56 01/28/20 25 01/27/2025 CBC (INCL UDES DIFF/ PLT) MCV 89.4 fL 80.0-1 00.0 normal Not Available [address], [address], 01/27/2025 10:42:56 01/28/20 25 01/27/2025 CBC (INCL UDES DIFF/ PLT) MCH 28.8 pg 27.0-3 3.0 normal Not Available [address], [address], 01/27/2025 10:42:56 01/28/20 25 01/27/2025 CBC (INCL UDES DIFF/ PLT) MCHC 32.3 g/dL 32.0-3 6.0 normal For adult s, a sligh t decre ase in the calcu lated MCHC value (in the range of 30 to 32 g/dL) is most likel y not clini emmie signi austin t; devang er, it shoul d be inter prete d with cauti on in [facility] n with other red cell sesar eters and the patie nt's clini constantin condi tion. Not Available [address], [address], 01/27/2025 10:42:56 01/28/20 25 01/27/2025 CBC (INCL UDES DIFF/ PLT) RDW 13.8 % 11.0-1 5.0 normal Not Available [address], [address], 01/27/2025 10:42:56 01/28/20 25 01/27/2025 CBC (INCL UDES DIFF/ PLT) platelet count 299 thous and/u L 140-40 0 normal Not Available [address], [address], 01/27/2025 10:42:56 01/28/20 25 01/27/2025 CBC (INCL UDES DIFF/ PLT) MPV 10.9 fL 7.5-12 .5 normal Not Available [address], [address], 01/27/2025 10:42:56 01/28/20 25 01/27/2025 CBC (INCL UDES DIFF/ PLT) absolute neutrophils 6087 cells /uL 1500-7 800 normal Not Available [address], [address], 01/27/2025 10:42:56 01/28/20 25 01/27/2025 CBC (INCL UDES DIFF/ PLT) absolute lymphocytes 2946 cells /uL 850-39 00 normal Not Available [address], [address], 01/27/2025 10:42:56 01/28/20 25 01/27/2025 CBC (INCL UDES DIFF/ PLT) absolute monocytes 680 cells /uL 200-95 0 normal Not Available [address], [address], 01/27/2025 10:42:56 01/28/20 25 01/27/2025 CBC (INCL UDES DIFF/ PLT) absolute eosinophils 556 cells /uL 15-500 high Not Available [address], [address], 01/27/2025 10:42:56 01/28/20 25 01/27/2025 CBC (INCL UDES DIFF/ PLT) absolute basophils 31 cells /uL 0-200 normal Not Available [address], [address], 01/27/2025 10:42:56 01/28/20 25 01/27/2025 CBC (INCL UDES DIFF/ PLT) neutrophils 59.1 % normal Not Available [address], [address], 01/27/2025 10:42:56 01/28/20 25 01/27/2025 CBC (INCL UDES DIFF/ PLT) lymphocytes 28.6 % normal Not Available [facility] [address], [address], 01/27/2025 10:42:56 01/28/20 25 01/27/2025 CBC (INCL UDES DIFF/ PLT) monocytes 6.6 % normal Not Available [facility] [address] [address] [place], [address], 01/27/2025 10:42:56 01/28/2001/27/2025 CBC (INCL UDES DIFF/ PLT) eosinophils 5.4 % normal Not Available [facility] [address] [address] [place], [address], 01/27/2025 10:42:56 01/28/20 25 01/27/2025 CBC (INCL UDES DIFF/ PLT) basophils 0.3 % normal Not Available [facility] [address] [place], [address], 01/27/2025 10:42:56 01/28/2001/27/2025 HEPAT ITIS C AB [...] a test for HCV RNA (test code 79245 ) is sugge sted. For addit ional infor dariusz ga pleas e refer to http: //[facility] padmini adan stdia gnost ics.c om/fa q/FAQ 22v1 (This link is being provi ded for infor dariusz terrell/ educa elder l purpo ses only. ) Not Available [facility] [address] [address] [place], [address], 01/27/2025 10:42:57 01/28/2001/27/2025 TSH W/REF VALENTINO TO FT4 TSH w/reflex to FT4 2.45 mIU/L 0.40-4 .50 normal Not Available [facility] [address] [address] [place], [address], 01/27/2025 10:42:58 01/28/20 25 01/27/2025 VITAM IN D,25- OH,TO ALISON,I A vitamin D,25-oh,tota lamontia 36 NG/mL 30-100 normal Vitam in D [...] /MS is recom micki d: order code 13510 (jamia ents >2yrs ). See Note 1 Note 1 For addit ional infor donna sarmiento refer to http: //[facility] padmini Adan stDia gnost ics.c om/fa q/FAQ 199 (This link is being provi ded for infor dariusz terrell/ nolberto miguel purpo ses only. ) Not Available [facility] [address] [address] [address] [facility], [place], [address], 01/27/2025 10:42:59 01/28/2001/27/2025 HEMOG LOBIN A1C hemoglobin [...] Curre ntly, no conse nsus exist s regsarah harding use of hemog lobin A1c for diagn osis of diabe jacqueline for child katina. NO COLLE CTION DATE RECEI [place]. WE HAVE USED THE DATE THE SPECI MEN WAS RECEI [place]TE BY THIS LABOR ATORY THE COLLE CTION DATE. IF THIS IS INCOR RECT, PLEAS E CONTA CT CLIEN T SERVI BEKA. PHONE NUMBE R: [phone] Not Available [facility] [address] [place], [address], 01/27/2025 10:43:00 02/24/20 24 02/24/2024 BASIC METAB OLIC PANEL sodium 134 mmol/ L 137-14 5 low Not Available [facility] (Lab) [address] [place], [address], 02/24/2024 20:48:45 02/24/20 24 02/24/2024 BASIC METAB OLIC PANEL potassium 4.2 mmol/ L 3.5-5. 1 Not Available [facility] (Lab) [address] [place], [address], 02/24/2024 20:48:45 02/24/20 24 02/24/2024 BASIC METAB OLIC PANEL chloride 97 mmol/ L 98-107 low Not Available [facility] (Lab) [address] [place], [address], 02/24/2024 20:48:45 02/24/20 24 02/24/2024 BASIC METAB OLIC PANEL carbon dioxide 29 mmol/ L 22-30 Not Available [facility] (Lab) [address] [place], [address], 02/24/2024 20:48:45 02/24/20 24 02/24/2024 BASIC METAB OLIC PANEL anion gap 12.2 mmol/ L 14-22 low Not Available [facility] (Lab) [address] [place], [address], 02/24/2024 20:48:45 02/24/20 24 02/24/2024 BASIC METAB OLIC PANEL glucose 164 mg/dL 70-99 high Not Available [facility] (Lab) [address] [place], [address], 02/24/2024 20:48:45 02/24/20 24 02/24/2024 BASIC METAB OLIC PANEL BUN 7 mg/dL 8-19 low Not Available [facility] (Lab) [address] [place], [address], 02/24/2024 20:48:45 02/24/20 24 02/24/2024 BASIC METAB OLIC PANEL creatinine 0.57 mg/dL 0.66-1 .25 low Not Available [facility] (Lab) [address] [place], [address], 02/24/2024 20:48:45 02/24/20 24 02/24/2024 BASIC METAB OLIC PANEL GFR >60 Refer ence Range : Hos[place] ge GFR Healt hy Adult : >60 [...] or ethni c subgr oups, such as [facility] nics. Outsi de the valid ated sesar [...] calcu lator is avail able on the F websi te: https ://juarez huynh.o rg/pr jose juaness ional s/kdo qi/gf r_cal culat or Not Available [facility] (Lab) [address] [place], [address], 02/24/2024 20:48:45 02/24/20 24 02/24/2024 BASIC METAB OLIC PANEL calcium 9.4 mg/dL 8.4-10 .2 Not Available [facility] (Lab) [address] [place], [address], 02/24/2024 20:48:45 02/24/20 24 02/24/2024 LIPID PANEL cholesterol 219 mg/dL 140-19 9 high NIH CHELSEY NSUS RECOM MENDA TION FOR JASSI STERO L: ADULT CHILD LOW RISK: <200 <170 BORDE RLINE : <200- 239 ----- HIGH RISK: >240 >200 Not Available [facility] (Lab) [address] [place], [address], 02/24/2024 20:48:47 02/24/20 24 02/24/2024 LIPID PANEL triglyceride s 359 mg/dL 0-150 high NIH CHELSEY NSUS REPOR T RECOM MENDA TION FOR TRIGL YCERI PORFIRIO: ADULT CHILD LOW RISK: <150 ----- BODER LINE: 150-1 99 ----- HIGH RISK: >200 ----- Not Available [facility] (Lab) [address] [place], [address], 02/24/2024 20:48:47 02/24/20 24 02/24/2024 LIPID PANEL HDL cholesterol 39 mg/dL 40- low Not Available [facility] (Lab) [address] [place], [address], 02/24/2024 20:48:47 02/24/20 24 02/24/2024 LIPID PANEL LDL cholesterol, calculated 108 mg/dL 0-130 NIH CHELSEY NSUS REPOR T RECOM MENDA TIONS FOR LDL: ADULT CHILD LOW RISK <130 <110 (OPTI MAL LDL) <100 ----- BORDE RLINE : 130-1 59 ----- HIGH RISK: >160 >130 A TRIGL YCERI DE RESUL T >400 INVAL IDATE S THE CALCU LATIO N FOR LDL FRACT IONAT ION - THE LDL RESUL T WILL NOT BE REPOR MELI. Not Available [facility] (Lab) [address] [place], [address], 02/24/2024 20:48:47 02/24/20 24 02/24/2024 HEPAT IC/LI BLAKE PANEL alkaline phosphatase 147 U/L 38-126 high Not Available [facility] (Lab) [address] [place], [address], 02/24/2024 20:48:49 02/24/20 24 02/24/2024 HEPAT IC/LI BLAKE PANEL alanine aminotransfe rase 37 U/L 0-35 high Not Available [facility] (Lab) [address] [place], [address], 02/24/2024 20:48:49 02/24/20 24 02/24/2024 HEPAT IC/LI BLAKE PANEL aspartate aminotransfe rase 43 U/L 15-37 high Not Available [facility] (Lab) [address] [place], [address], 02/24/2024 20:48:49 02/24/20 24 02/24/2024 HEPAT IC/LI BLAKE PANEL bilirubin, total 0.40 mg/dL 0.20-1 .30 Not Available [facility] (Lab) [address] [place], [address], 02/24/2024 20:48:49 02/24/20 24 02/24/2024 HEPAT IC/LI BLAKE PANEL bilirubin, conjugated (direct) 0.00 mg/dL 0.00-0 .30 Not Available [facility] (Lab) [address] [place], [address], 02/24/2024 20:48:49 02/24/20 24 02/24/2024 HEPAT IC/LI BLAKE PANEL biliurubin,u ncong. (indirect) 0.20 mg/dL 0.00-1 .1 Not Available [facility] (Lab) [address] [place], [address], 02/24/2024 20:48:49 02/24/20 24 02/24/2024 HEPAT IC/LI BLAKE PANEL total protein 6.8 g/dL 6.3-8. 2 Not Available [facility] (Lab) [address] [place], [address], 02/24/2024 20:48:49 02/24/20 24 02/24/2024 HEPAT IC/LI BLAKE PANEL albumin 4.2 g/dL 3.0-4. 4 Not Available [facility] (Lab) [address] [place], [address], 02/24/2024 20:48:49 02/24/20 24 02/24/2024 HEPAT IC/LI BLAKE PANEL globulin 2.6 g/dL 2.6-4. 2 Not Available [facility] (Lab) [address] [place], [address], 02/24/2024 20:48:49 02/24/20 24 02/24/2024 HEPAT IC/LI BLAKE PANEL A/G ratio 1.6 ratio 1.0-2. 0 Not Available [facility] (Lab) [address] [place], [address], 02/24/2024 20:48:49 02/24/20 24 02/24/2024 VITAM IN D 25-HY DROXY [id number] 40.5 NG/mL 30-100 Vitam in D Statu s: Defic ient: <20 ng/mL Insuf ficie nt: 20-29 ng/mL Suffi cient : 30-10 0 ng/mL Not Available [facility] (Lab) [address] [place], [address], 02/24/2024 20:56:23 02/24/20 24 02/24/2024 CBC/C OMPLE TE BLD COUNT W/DIF F white blood cells 8.2 x10'3 /uL 4.2-10 .8 Not Available [facility] (Lab) [address] [place], [address], 02/24/2024 21:05:15 02/24/20 24 02/24/2024 CBC/C OMPLE TE BLD COUNT W/DIF F red blood cells 5.08 x10'6 /uL 3.80-5 .20 Not Available [facility] (Lab) [address] [place], [address], 02/24/2024 21:05:15 02/24/20 24 02/24/2024 CBC/C OMPLE TE BLD COUNT W/DIF F hemoglobin 15.0 g/dL 12.0-1 5.6 Not Available [facility] (Lab) [address] [place], [address], 02/24/2024 21:05:15 02/24/20 24 02/24/2024 CBC/C OMPLE TE BLD COUNT W/DIF F hematocrit 46.3 % 35.7-4 5.7 high Not Available [facility] (Lab) [address] [place], [address], 02/24/2024 21:05:15 02/24/20 24 02/24/2024 CBC/C OMPLE TE BLD COUNT W/DIF F mean red cell volume 91.1 fL 82.0-9 9.0 Not Available [facility] (Lab) [address] [place], [address], 02/24/2024 21:05:15 02/24/20 24 02/24/2024 CBC/C OMPLE TE BLD COUNT W/DIF F mean red cell hemoglobin 29.5 pg 27.0-3 3.0 Not Available [facility] (Lab) [address] [place], [address], 02/24/2024 21:05:15 02/24/20 24 02/24/2024 CBC/C OMPLE TE BLD COUNT W/DIF F mean RBC HGB concentratio n 32.4 g/dL 31.0-3 6.0 Not Available [facility] (Lab) [address] [place], [address], 02/24/2024 21:05:15 02/24/20 24 02/24/2024 CBC/C OMPLE TE BLD COUNT W/DIF F red cell distribution width 12.9 % 11.8-1 5.5 Not Available [facility] (Lab) [address] [place], [address], 02/24/2024 21:05:15 02/24/20 24 02/24/2024 CBC/C OMPLE TE BLD COUNT W/DIF F platelets 336 x10'3 /uL 150-40 0 Not Available [facility] (Lab) [address] [place], [address], 02/24/2024 21:05:15 02/24/20 24 02/24/2024 CBC/C OMPLE TE BLD COUNT W/DIF F mean platelet volume 11.3 fL 9.0-12 .4 Not Available [facility] (Lab) [address] [place], [address], 02/24/2024 21:05:15 02/24/20 24 02/24/2024 CBC/C OMPLE TE BLD COUNT W/DIF F neutrophils 50.3 % 39.0-7 2.0 Not Available [facility] (Lab) [address] [place], [address], 02/24/2024 21:05:15 02/24/20 24 02/24/2024 CBC/C OMPLE TE BLD COUNT W/DIF F lymphocytes 36.8 % 16.0-4 7.0 Not Available [facility] (Lab) [address] [place], [address], 02/24/2024 21:05:15 02/24/20 24 02/24/2024 CBC/C OMPLE TE BLD COUNT W/DIF F monocytes 6.8 % 5.0-12 .0 Not Available [facility] (Lab) [address] [place], [address], 02/24/2024 21:05:15 02/24/20 24 02/24/2024 CBC/C OMPLE TE BLD COUNT W/DIF F eosinophils 5.7 % 1.0-7. 0 Not Available [facility] (Lab) [address] [place], [address], 02/24/2024 21:05:15 02/24/20 24 02/24/2024 CBC/C OMPLE TE BLD COUNT W/DIF F basophils 0.2 % 0.0-2. 0 Not Available [facility] (Lab) [address] [place], [address], 02/24/2024 21:05:15 02/24/20 24 02/24/2024 CBC/C OMPLE TE BLD COUNT W/DIF F immature granulocytes 0.2 % 0.00-0 .50 Not Available [facility] (Lab) [address] [place], [address], 02/24/2024 21:05:15 02/24/20 24 02/24/2024 CBC/C OMPLE TE BLD COUNT W/DIF F neutrophils, absolute count 4.14 x10'3 /uL 1.5-8. 0 Not Available [facility] (Lab) [address] [place], [address], 02/24/2024 21:05:15 02/24/20 24 02/24/2024 CBC/C OMPLE TE BLD COUNT W/DIF F lymphocytes, absolute count 3.03 x10'3 /uL 1.07-3 .43 Not Available [facility] (Lab) [address] [place], [address], 02/24/2024 21:05:15 02/24/20 24 02/24/2024 CBC/C OMPLE TE BLD COUNT W/DIF F monocytes, absolute count 0.56 x10'3 /uL 0.29-0 .99 Not Available [facility] (Lab) [address] [place], [address], 02/24/2024 21:05:15 02/24/20 24 02/24/2024 CBC/C OMPLE TE BLD COUNT W/DIF F eosinophils, absolute count 0.47 x10'3 /uL 0.02-0 .53 Not Available [facility] (Lab) [address] [place], [address], 02/24/2024 21:05:15 02/24/20 24 02/24/2024 CBC/C OMPLE TE BLD COUNT W/DIF F basophils, absolute count 0.02 x10'3 /uL 0.01-0 .08 Not Available [facility] (Lab) [address] [place], [address], 02/24/2024 21:05:15 02/24/20 24 02/24/2024 CBC/C OMPLE TE BLD COUNT W/DIF F immature granulocytes ,absolute 0.02 x10'3 /uL 0.00-0 .05 Not Available [facility] (Lab) [address] [place], [address], 02/24/2024 21:05:15 02/24/20 24 02/24/2024 CBC/C OMPLE TE BLD COUNT W/DIF F nucleated red blood cells 0.0 % -0 Not Available [facility] (Lab) [address] [place], [address], 02/24/2024 21:05:15 02/24/20 24 02/24/2024 CBC/C OMPLE TE BLD COUNT W/DIF F NRBC# 0.00 x10'3 /uL Not Available [facility] (Lab) [address] [place], [address], 02/24/2024 21:05:15 02/24/20 24 02/24/2024 HEMOG LOBIN A1C HA1C 11.9 % 4.0-6. 0 high Diabe jacqueline Scree alice Crite tereza: <5.7% Consi stent with absen ce of diabe jacqueline 5.7-6 .4% Consi stent with incre ased risk for diabe jacqueline (pred iabet es) >OR=6 .5% Consi stent with diabe jacqueline REFER ENCE: Diabe jacqueline Care 2016, 39(Tran ppl.1 ):s13 -s22 Not Available [facility] (Lab) [address] [place], [address], 02/24/2024 22:49:02 02/24/20 24 02/26/2024 CALCI UM, IONIZ ED/LC calcium, ionized, serum 4.4 mg/dL 4.5-5. 6 low Perfo rmed at: [facility] [address] [id number] Lab Direc tor: Soren watts PhD, Phone : [phone] Not Available [facility] (Lab) [address] [place], [address], 02/26/2024 16:13:27 06/12/20 24 06/11/2024 LDCT, chest , for lung cance r lani jenkins No observ ation record ed. [email or web address] [address], [place], [address], 06/24/2024 11:52:18 07/14/20 24 07/14/2024 XR, hand, 3 or more view No observ ation record ed. [email or web address] [place] [address] [address], [place], [address], 07/15/2024 11:05:58 10/18/1910/15/2024 MAMMO , scree alice, digit al, bilat eral No observ ation record ed. [email or web address] [facility] [address], [place], [address], 10/19/2024 11:06:32 12/16/19 25 12/14/2024 XR, chest No observ ation record ed. [facility] [address] [facility] [address], [place], [address], 12/15/2024 10:30:26 Result Notes None recorded. Problems Name Problem SNOMED Code Status Onset Date Resolution Date Notes Provider Name and Address Organization Details Recorded Time Menopausal syndrome 037620334 Active Not Available [facility] 3 20:45:13 Open wound of knee 971713718 Active Not Available [employer] 3 20:45:13 Cellulitis 308655096 Active Not Available [employer] 3 20:45:13 Chronic obstructiv e pulmonary disease 43115233 Active Not Available [facility] 3 20:45:13 Localized, primary osteoarthr itis of the hand 126174741 Active Not Available [facility] 3 20:45:13 Fine motor impairment 970524182 Active Not Available [facility] 3 20:45:13 Spasm of urinary bladder 543053217 Active Not Available [facility] 3 20:45:13 Low back pain 567559824 Active Not Available [facility] 3 20:45:13 Lesion of lip 233359355 Active Not Available [facility] 3 20:45:13 Enthesopat hy of hip region 71155374 Active Not Available [facility] 3 20:45:13 Osteopenia 305608967 Active 2020 Not Available [facility] 3 20:45:13 Bronchitis 98002070 Active Not Available [facility] 3 20:45:13 Depressive disorder 61304944 Active Not Available [facility] 3 20:45:13 Neuropathy 866605074 Active Not Available [facility] 3 20:45:14 Rosacea 639840543 Active Not Available [facility] 3 20:45:14 Pain of hip region 32619555 Active Not Available [facility] 3 20:45:14 Dysuria 64852129 Active Not Available [facility] 3 20:45:14 Hyperlipid emia 07751704 Active Not Available [facility] 3 20:45:14 Pain of joint 44627373 Active Not Available [facility] 3 20:45:14 Hypercalce gregory 68037595 Active Not Available [facility] 3 20:45:14 Increased liver function 38416066 Active Not Available [facility] 3 20:45:14 Polyp of colon 27794909 Active repeat cscope 07/2020 Not Available [facility] 3 20:45:14 Diabetes mellitus 09365734 Active Not Available [facility] 3 20:45:14 Skin lesion 60804475 Active Not Available [facility] 3 20:45:14 Cough 02044670 Active 2022 Not Available [facility] 3 20:45:14 Uncontroll ed type 2 diabetes mellitus 321904490 Active 2022 Not Available [facility] 3 20:45:14 Pain in thumb 879548443 Active 2022 Not Available [facility] 3 20:45:13 Pain of multiple joints 20460704 Active 2022 Not Available [facility] 3 20:45:14 Type 2 diabetes mellitus 34070880 Active 2022 Not Available [facility] 3 20:45:14 Liver enzymes level above reference range 474827554 Active 2022 Not Available [facility] 3 20:45:14 Abdominal pain 57127969 Active 2022 Not Available [facility] 3 20:45:13 Acute urinary tract infection 816087305 Active 2022 Not Available [facility] 3 20:45:14 Essential hypertensi on 74804630 Active 2023 Magdalena Orlando MD [address], [facility], [address], [place], [address] , [employer] [facility] [employer] [facility] 4 15:46:51 Vitamin D deficiency 42553389 Active 2023 Magdalena Orlando MD [address], [place] [address], [place], [address] , [employer] [facility] [employer] [facility] 4 15:47:08 Pain in right hand 966857001061 109 Active 2023 MARIA LUISA Beck [address], [place] [address], [place], [address] , [employer] [facility] [employer] [facility] 4 10:48:22 CT of chest abnormal 876780031509 49510 Active 2023 MARIA LUISA Beck [address], [place] [address], [place], [address] , [employer] [facility] [employer] [facility] 4 10:57:08 Nicotine dependence 39253031 Active 2023 MARIA LUISA Beck [address] [facility], [place] [address], [place], [address] , [employer] [facility] [employer] [facility] 4 10:35:37 Cigarette smoker 94550439 Active 2023 MARIA LUISA Beck [address], [place] [address], [place], [address] , [employer] [facility] [employer] [facility] 4 10:36:23 Acute upper respirator y infection 41510027 Active 2023 MARIA LUISA Leigh [address], [place] [address], [place], [address] , [employer] [facility] [employer] [facility] 4 09:10:24 Productive cough -green sputum 991656155 Active 2024 MARIA LUISA Leigh [address], [address], [place], [address] , [employer] 5 16:43:40 Wheezing 17788002 Active 2024 MARIA LUISA Leigh [address], [address], [place], [address] , [employer] 5 16:44:51 Allergic rhinitis 17719295 Active 2024 MARIA LUISA Leigh [address], [address], [place], [address] , [email or web address] 09:10:00 Notes:Some problems listed i n Document: #[id number] could not be added to this patient's chart. Please review this document and add these problems to the patient's chart manually as needed. Problem Notes None recorded. Procedures Surgical History Date Name Laterality Status Provider Name and Address Organization Details Recorded Time 01/27/20 25 Medicare Wellness CPT Code, subsequent completed MARIA LUISA Leigh [address], [address], [place], [address], [employer] 01/26/2025 08:52:08 12/24/19 24 Nail Debridement completed Christopher Dove DPM [address], [address], [place], [address], [employer] 12/24/2023 10:37:59 11/26/19 22 colonoscopy completed Not Available [facility] 12/12/19 23 00:48:09 delivery completed Cheryl Osman MA [employer] 01/26/2025 08:43:49 Hysterectomy completed Cheryl Osman MA [employer] [facility] [facility] 01/26/2025 08:43:59 Imaging Results None recorded. Procedure [...] 2nd Gen Pen Needle 32 gauge x DIRECTED DAILY active Not Available Not Available [...] 2022 active Not Available Not Available Not [employer] Moun[employer] 2.5 mg/0.5 mL subcutaneou s pen [...] and Address Organization Details Last Updated DateTime 160.02 cm 23.9 kg/m2 32218.9 7 g 97.2 [degF] 90 % 90 % 88 /min 120 mm[Hg] 72 mm[Hg] Shahbaz Vera RN [facility] [employer] 5 16:38:23 Date Recorded Body height Body mass index (BMI) Body weight Body temperature Heart rate Oxygen saturation Oxygen saturation in Arterial blood by Pulse oximetry Systolic blood pressure Diastolic blood pressure Provider Name and Address Organization Details Last Updated DateTime 5 160.02 cm 24.6 kg/m2 97022.3 4 g 98.2 [degF] 125 /min 91 % 91 % 110 mm[Hg] 70 mm[Hg] Cheryl Osman MA [facility] [employer] [facility] 5 08:39:14 Date Recorded Body height Body mass index (BMI) Body weight Body temperature Heart rate Oxygen saturation Oxygen saturation in Arterial blood by Pulse oximetry Systolic blood pressure Diastolic blood pressure Provider Name and Address Organization Details Last Updated DateTime 4 160.02 cm 23.4 kg/m2 24284.1 9 g 97.8 [degF] 86 /min 90 % 90 % 124 mm[Hg] 70 mm[Hg] Shahbaz Vera RN [facility] [employer] [facility] 4 14:27:41 Date Recorded Body height Body mass index (BMI) Body weight Body temperature Heart rate Oxygen saturation Oxygen saturation in Arterial blood by Pulse oximetry Systolic blood pressure Diastolic blood pressure Provider Name and Address Organization Details Last Updated DateTime 4 160.02 cm 23.2 kg/m2 71835.6 g 98.3 [degF] 93 /min 93 % 93 % 96 mm[Hg] 60 mm[Hg] Xin Crook RN [facility] [employer] [facility] 4 10:30:02 Date Recorded Body height Body mass index (BMI) Body weight Body temperature Oxygen saturation Oxygen saturation in Arterial blood by Pulse oximetry Heart rate Systolic blood pressure Diastolic blood pressure Provider Name and Address Organization Details Last Updated DateTime 4 160.02 cm 24.4 kg/m2 14241.7 5 g 97.3 [degF] 92 % 92 % 89 /min 120 mm[Hg] 76 mm[Hg] Shahbaz Vrea RN [facility] [employer] [facility] 4 11:39:01 Social History Question Answer Notes LastModified by Organizat ion Details LastModified Time Tobacco Smoking Status Former Smoker quit 2018 Not Available [employer] 12/11/2022 00:45:27 Do You Wear A Helmet When Biking? Yes [id number] Information not available 12/11/2022 What Is Your Level Of Caffeine Consumption? Occasional MIGRATION.[id number] Information not available 12/11/2022 In The 14 [...] Type Of Diet Are You Following? REGULAR MIGRATION.57759 09389 Information not available 12/11/2022 What Is The Highest Grade Or Level Of School You Have Completed Or The Highest Degree You Have Received? [id number] MIGRATION.34701 82756 Information not available 12/11/2022 Have There Been Any Changes To Your Family Or Social Situation? No MIGRATION.41645 01846 Information not available 12/11/2022 When Did You Quit Smoking? 1-5yearssincel astcigarette MIGRATION.63244 39922 Information not available 12/11/2022 Do You Use Insect Repellent Routinely? No Information not available 01/26/2025 What Was The Date Of Your Most Recent Tobacco Screening? 01/26/2025 Information not available 01/26/2025 How Many Children Do You Have? 2 Information not available 01/26/2025 Do You Have Any Pets? No MIGRATION.38831 69530 Information not available 12/11/2022 What Is Your Relationship Status? Single MIGRATION.82031 02456 Information not available 12/11/2022 Do You Use Your Seat Belt Or Car Seat Routinely? Yes MIGRATION.56561 90310 Information not available 12/11/2022 Do You Have Smoke And Carbon Monoxide Detectors In Your Home? Yes MIGRATION.37798 47562 Information not available 12/11/2022 Are You Passively Exposed To Smoke? No Information no t available 01/26/2025 Are There Any Smokers In Your House? No Information not available 01/26/2025 Do You Participate In Social Media? No MIGRATION.05435 94457 Information not available 12/11/2022 Do You Use Sunscreen Routinely? No Information not available 01/26/2025 How Many Years Have You Smoked Tobacco? 40 MIGRATION.03519 91391 Information not available 12/11/2022 Have You Recently Traveled Abroad? No Information not available 01/26/2025 Are You Currently In School? No MIGRATION.74814 47466 Information not available 12/11/2022 Do You Have Any Dietary Restrictions? No MIGRATION.40686 85535 Information not available 12/11/2022 Sex: Unknown Functional Status Question Answer Note LastModified by Organizat ion Details LastModified Time Do you use any illicit or recreational drugs? No MIGRATION.5745179 026 Information not available 12/11/2022 What is your level of alcohol consumption? None MIGRATION.5619214 026 Information not available 12/11/2022 Are you currently employed? Disabled Information not available 01/26/2025 What is your exercise level? None MIGRATION.5505666 026 Information not available 12/11/2022 Mental Status Question Answer Note LastModified by Organizat ion Details LastModified Time Do you feel stressed (tense, restless, nervous, or anxious, or unable to sleep at night)? [id number] MIGRATION.[id number] 6 Information not available 12/11/2022 Family History Relationship Description Onset Age of this Age Resolved Age Notes LastModified by Organization Details LastModified Time Father Essential hypertension MIGRATION.328 [id number] Not available 12/11/2022 00:48:14 Father Diabetes mellitus MIGRATION.798 [id number] Not available 12/11/2022 00:48:14 Father Hyperlipidem ia MIGRATION.723 [id number] Not available 12/11/2022 00:48:14 Father Malignant neoplasm of prostate MIGRATION.080 [id number] Not available 12/11/2022 00:48:14 Paternal Grandfather Malignant tumor of colon MIGRATION.845 [id number] Not available 12/11/2022 00:48:14 Unspecified Relation Malignant tumor of colon Patern al Great grandm other MIGRATION.053 [id number] Not available 12/11/2022 00:48:14 Medical History No [...] Details Recorded Time Tdap 4 completed BARBARA Leigh-Augustus [address] [facility], [facility] [address], [place], [address], [facility] [employer] [facility] 01/27/2025 08:49:20 Influenza, split virus, quadrivalent, PF 3 completed Barbi Currie RN [facility], [facility] [facility] 07/08/2023 08:47:14 zoster live 7 completed Not Available [facility] 09/29/2023 20:45:14 Tdap 2 completed Not Available [facility] 09/29/2023 20:45:14 pneumococcal polysaccharide PPV23 1 completed Not Available [facility] 09/29/2023 20:45:14 Influenza, high-dose, trivalent, PF 9 completed Not Available [facility] 09/29/2023 20:45:14 Pneumococcal conjugate PCV 13 8 completed Not Available [facility] 09/29/2023 20:45:14 Influenza, split virus, quadrivalent, PF 8 completed Not Available [facility] 09/29/2023 20:45:14 Influenza, split virus, quadrivalent, PF 4 completed Not Available [facility] 09/29/2023 20:45:14 Influenza, split virus, quadrivalent, PF 2 completed Not Available [facility] 09/29/2023 20:45:14 Influenza, split virus, quadrivalent, PF 1 completed Not Available [facility] 09/29/2023 20:45:14 Influenza, split virus, quadrivalent, PF 0 completed Not Available [facility] 09/29/2023 20:45:14 Influenza, split virus, quadrivalent, PF 8 completed Not Available [facility] 09/29/2023 20:45:14 Influenza, split virus, quadrivalent, preservative 6 completed Not Available [facility] 09/29/2023 20:45:14 Influenza, split virus, quadrivalent, PF 5 completed Not Available [facility] 09/29/2023 20:45:14 Past Encounters Encounter ID Performer Location Encounter Start Date Encounter Closed Date Diagnosis/Indication Diagnosis SNOMED-CT Code Diagnosis ICD10 Code Diagnosis Note [id number] Magdalena Orlando MD [facility] Primary [facility] [place] [address] [place] [address] 12/18/2020 00:00:00 12/18/2020 11:16:22 [id number] Magdalena Orlando MD [facility] [place] [address] [place] [address] 06/05/2021 00:00:00 06/05/2021 08:14:52 [id number] Magdalena Orlando MD [facility] Primary [facility] [place] [address] [place] [address] 07/11/2021 00:00:00 07/11/2021 13:14:27 [id number] Magdalena Orlando MD [facility] Primary [facility] [place] [address] [place] [address] 10/10/2021 00:00:00 10/10/2021 09:48:43 [id number] Magdalena Orlando MD [facility] Primary [facility] [place] [address] [place] [address] 12/11/2021 00:00:00 12/11/2021 10:35:10 [id number] Magdalena Orlando MD [facility] [place] [address] [place] [address] 03/13/2022 00:00:00 03/13/2022 10:55:29 [id number] Magdalena Orlando MD [facility] [place] [address] [place] [address] 05/13/2022 00:00:00 05/13/2022 15:27:16 [id number] MICHELLE Daly [facility] Primary [facility] [place] [address] [facility] [address] [place] [address] 05/22/2022 00:00:00 05/23/2022 09:21:42 [id number] Magdalena Orlando MD [facility] Primary [facility] [place] [address] [facility] [address] [place] [address] 07/01/2022 00:00:00 07/01/2022 09:58:40 [id number] Magdalena Orlando MD [facility] Primary [facility] [place] [address] [facility] [address] [place] [address] 08/14/2022 00:00:00 09/11/2022 10:55:23 [id number] Magdalena Orlando MD [facility] Primary [facility] [place] [address] [facility] [address] [place] [address] 10/01/2022 00:00:00 10/01/2022 09:15:29 [id number] Magdalena Orlando MD [facility] Primary [facility] [place] [address] [facility] [address] [place] [address] 11/26/2022 00:00:00 12/03/2022 19:55:54 [id number] Magdalena Orlando MD [facility] Primary [facility] [place] [address] [facility] [address] [place] [address] 12/31/2022 08:58:46 12/31/2022 09:31:47 Uncontrolled type 2 diabetes mellitus 621123202 E11.65 not in good controlcon tinue levemir 85 units bidd/c byettabegi n mounjaro 5 mg sc qweekf/u in 4 weeks or sooner if needed [id number] Magdalena Orlando MD [facility] Primary [facility] [place] [address] [facility] [address] [place] [address] 02/03/2023 09:13:26 02/03/2023 09:52:21 Uncontrolled type 2 diabetes mellitus 441507441 E11.65 not in good controlcon tinue levemir 85 units bidincreas e mounjaro 7.5 mg sc qweekf/u in 4 weeks or sooner if needed Screening mammography 24 769613 Z12.31 Pain in thumb 512974917 M79.[address] Thibodeaux again [id number] Magdalena Orlando MD [facility] Primary [facility] [place] [address] [facility] [address] [place] [address] 04/08/2023 08:10:29 04/08/2023 08:47:58 Liver enzymes level above reference range 962759030 R74.01 Uncontroll ed type 2 diabetes mellitus 584029080 E11.65 04-08-23 Reports no ASE with current dosage. Continues to monitor blood sugars. Blood sugars are improving. Goal is to increase to 10 when pharmacy has it available. Follow up in 3 months. not in good controlcon tinue levemir 85 units bidincreas e mounjaro 7.5 mg sc qweekf/u in 4 weeks or sooner if needed [id number] Magdalena Orlando MD [facility] Primary [facility] [place] [address] [facility] [address] [place] [address] 04/30/2023 11:48:02 04/30/2023 12:24:23 [id number] Magdalena Orlando MD [facility] Primary [facility] [place] [address] [facility] [address] [place] [address] 07/08/2023 08:07:19 07/08/2023 08:44:08 Type 2 diabetes mellitus 47136533 E11.9 improving but not yet to baselinein crease mounjaro 10 mg sc qweekf/u in 4 weeks or sooner if needed Administra tion of influenza vaccine 21812123 Z23 [id number] Magdalena Orlando MD [facility] Primary [facility] [place] [address] [facility] [address] [place] [address] 08/19/2023 08:37:23 08/19/2023 09:10:52 Type 2 diabetes mellitus 37461267 E11.9 improving but not yet to baselinein crease mounjaro 12.5 mg sc qweekf/u in 4 weeks or sooner if needed [id number] Magdalena Orlando MD [facility] Primary Care [address] [place] [address] 12/02/2023 15:33:38 12/02/2023 16:08:24 Diabetes mellitus 10357398 E11.69 Hypercalcemia 47122428 E 83.52 Hyperlipidemia 92484000 E78.5 Z79.899 Essential hypertension 29644299 I10 Vitamin D deficiency 347 02144 E55.9 [id number] Christopher Dove DPM [facility] Podiatry [place] [address] [address] 12/24/2023 09:52:53 12/24/2023 11:08:11 Type 2 diabetes mellitus 68659576 E11.9 [id number] Magdalena Orlando MD [facility] Primary Care [address] [address] 02/24/2024 14:19:57 02/24/2024 15:09:31 Diabetes mellitus 60320034 E11.69 trulicity has been on back orderconti nue levemir 85 units biddiabeti c eye exam up to datehas continuous glucose monitorsee ing podiatrych emmanuel labs Hypercalcemia 20809640 E 83.52 Hyperlipidemia 24096745 E78.5 Z79.899 Essential hypertension 93302129 I10 stable Vitamin D deficiency 347 80231 E55.9 [id number] MARIA LUISA Beck [facility] Primary Care [address] [place] [address] 05/26/2024 10:23:21 05/26/2024 11:01:06 Chronic obstructive pulmonary disease [id number] J44.9 Pain in right hand 03086 45415 07090 M79.641 Screening for malignant neoplasm of breast [id number] Z12.39 CT of chest abnormal 720 [id number] 4768969 R93.89 hx of abnormal low dose CT [id number] MARIA LUISA Leigh [facility] Primary [facility] [address] [place] [address] 08/17/2024 11:31:45 08/17/2024 12:47:25 Chronic obstructive pulmonary disease [id number] J44.9 Well controlled on current medication s. Pain in right hand 37283 [id number] 13104 M79.641 Follows up with hand specialist on 08/31. Type 2 marlee betes mellitus [id number] E11.9 Levemir is discontinu ed, will switch to Lantus.Gladys ieed will follow up in 3 months, sooner if needed. Pain of mu ltiple joints 69968308 M25.50 Skin lesion 52194604 L98 .9 [id number] MARIA LUISA Leigh [facility] Primary Care [address] [address] 12/14/2024 16:34:02 12/14/2024 16:49:29 Productive cough -green sputum [id number] R09.3 Acute uppe r respiratory infection 39334115 J06.9 [id number] MARIA LUISA Leigh [facility] Primary Care [address] [place] [address] 01/26/2025 08:32:29 01/26/2025 09:24:00 Adult health examination [id number] Z00.00 Discussed medication compliance and routine follow up.Discuss ed healthy diet and routine exercise.Jarred pizarroiewed vaccine records and made recommenda tions as needed.Enc ouraged annual eye and dental exams, as well as twice yearly dental cleanings. Will check screening labs as listed below. Screening for disorder [id number] Z13.9 Chronic ob structive pulmonary disease 87774994 J44.9 Well controlled on current medication s.Will refer to pulmonolgy to re-establi sh care. Essential hypertension 84139974 I10 110/70Disc ussed DASH diet and routine exercise. Hyperlipidemia 29649887 E78.5 Z79.899 Will check labs as listed below. Neuropathy 141006358 G62 .9 Vitamin D deficiency 347 47220 E55.9 Will check labs as listed below. Thyroid di sorder screening [id number] Z13.29 Type 2 marlee betes mellitus 72126760 E11.9 Diabetic Foot and Eye Exams are UTD per patient. Hepatitis C screening 41 8430969 Z11.59 Allergic rhinitis 764414 04 J30.9 Postmenopausal state 764 20777 Z78.0 Body mass index 20-24 - normal 013453399 Z68.24 Weight: 139 poundsBMI: 24.6 Health Concerns Section Related Observation LastModified by Organization Detai ls LastModified Time None Recorded Concern Status LastModified by Organization Details LastModified Time None Recorded Advance Directives Directive None Recorded Payers Insurance Date Sequence Insurance Name Policy Number Policy Boykin Covered Member ID Boykin Member ID Guarantor Name 01/27/2025 2 [place]SECON[place] WHEN MEDICARE OR MEDICARE REPLACEMENT PRIMARY) Xochitl Elmwood [id number] Xochitl Kyle Elmwood 01/23/2025 1 [facility] (MEDICARE REPLACEMENT/A DVANTAGE - HMO) [id number] Xochitl Kyle Elmwood [id number] Xochitl Kyle Elmwood Notes Date Note Type Note Provider Name [...] Orlando MD [address], [address], [place], [address], [email or web address] 02/29/2024 10:43:32 05/26/2024 text/html pt is here for f/u BARBARA Palmer-Augustus [address], [address], [place], [address], [email or web address] 05/26/2024 11:07:25 08/17/2024 text/html Patient is a [...] mammogram in October. MARIA LUISA Leigh [address], [place], [address], [email or web address] 08/17/2024 12:03:43 12/14/2024 text/html Patient is a [...] known sick contacts. MARIA LUISA Leigh [address], [place], [address], [email or web address] 12/15/2024 08:59:29 01/26/2025 text/html Patient is a 64 year old female that presents to the office for annual wellness. Patient reports she is doing well on current medications and has no concerns at this time. labs- orderedWWE-hysterecto my-Mammogram- UTD (10/2024)Colonoscopy- scheduled JuneDEXA-ordered ([facility])Flu-declinesC ovid-declinesTdap- UTD (2023)Shingles-UTDPne umonia- UTD MARIA LUISA Leigh [address], [address], [place], [address], [email or web address] 01/27/2025 08:54:55 OBGyn Episode No OBEpisode recorded.
== END 2025-04-13 08:17 | disposition home or self-care (01) ==
LOC: ANHIMG 08:18
PROVIDERS: PCP Nurse Practitioner Family; Visit Provider Nurse Practitioner Family
DX: Z78.0 Asymptomatic menopausal state (principal); M85.852 Other specified disorders of bone density and structure, left thigh; M85.851 Other specified disorders of bone density and structure, right thigh
CPT/HCPCS: 77080

== ENCOUNTER 2025-08-25 14:59 | Emergency (ER) | payer MEDICARE, MEDICAID, SELFPAY ==
--- NOTE | ~2025-08-25 | XR_ITS ---
EXAMINATION: XR chest 2V DATE: 08/25/2025 15:42 INDICATION: Pneumonia TECHNIQUE: Frontal and lateral views of the chest were obtained. COMPARISON: December 14, 2024 FINDINGS: The lungs are clear. Heart shadow normal. Bones and upper abdomen unremarkable. IMPRESSION: 1. No focal acute process. Reviewed, dictated and finalized at location A. RTISEMENT COMPOSITOR IMPRESSION: 1. No focal acute process.
[2025-08-25 15:07] VITALS: BP 105/68; PULSE 101; RESP 30; TEMP 36.7; O2SAT 92
--- NOTE | 2025-08-25 15:19 | ECG_ITS ---
Test Date: 2025-08-25 15:30:22 Measurements Intervals [place] Rate: 98 P: 77 NH: 148 QRS: 59 QRSD: 92 T: 65 QT: 339 QTc: 433 Interpretive Statements SINUS RHYTHM NORMAL ELECTROCARDIOGRAM No previous ECG available for comparison Electronically Signed On 08-26-2025 12:55:59 [employer] PACKER by Carlo Kennedy M.D.
[2025-08-25 15:20] VITALS: PULSE 101; RESP 30; O2SAT 92
[2025-08-25] MEDS: IPRATROPIUM 0.5 MG/ALBUTEROL SULFATE 2.5 MG (BASE) AMPUL.NEB 3 ML INHALATION (15:43)
[2025-08-25 15:53] LABS: EDUAAPPEAR Cloudy; EDUABILI Negative (Negative); EDUABLOOD Negative (Negative); EDUACOLOR1 Dark; EDUAGLUCOSE 2+ (Negative); EDUAKETONE Negative (Negative); EDUALEUKO Negative (Negative); EDUANITRATE Positive (Negative); EDUAPH 6.0; EDUAPROTEIN Negative (Negative); EDUASPGRAVITY 1.010; EDUAUROBILI 0.2
[2025-08-25 15:54] VITALS: PULSE 89; RESP 20; O2SAT 98
[2025-08-25 15:57] VITALS: PULSE 89; RESP 20; O2SAT 98
--- NOTE | 2025-08-25 17:11 | ED.SOB ---
HPI - SOB/Dyspnea General Chief Complaint: Shortness of Breath/Dyspnea Stated Complaint: SOB/Back Pain Time Seen by Provider: 08/25/25 15:10 Source: patient and RN notes reviewed Mode of arrival: ambulatory Limitations: no limitations History of Present Illness HPI Narrative: 65-year-old female presents Express Care complaining of shortness of breath for last 1-2 weeks. Patient says she has a history of COPD, she was recently treated by her PCP with azithromycin was given loratadine. Patient says she has felt more short of breath this week primarily with exertion. Patient also reports a worsening cough to a more productive mucopurulent cough and thicker sputum production. Patient denies any fevers, eczema chills, nausea vomiting, chest pain difficulty breathing, congestion, runny nose, or any other upper respiratory symptoms. Patient has been using inhalers as directed. Patient says she has a nebulizer but no medications for it. Patient also wants her urine checked as reports having cloudy in smelling urine and mid back pain. Related Data Home Medications ?Medication ?Instructions ?Recorded ?Confirmed ?Last Taken ?Type albuterol sulfate 90 mcg/actuation 2 puff inhalation QID PRN 09/11/19 03/14/25 09/11/19 History aerosol inhaler (ProAir HFA) Shortness Of Breath amitriptyline 25 mg tablet 25 mg PO DAILY 09/11/19 03/29/25 03/28/25 History budesonide-formoterol HFA 160 2 puff inhalation Q12H 09/11/19 03/29/25 03/28/25 History mcg-4.5 mcg/actuation aerosol inhaler (Symbicort) buprenorphine 5 mcg/hour weekly 5 mcg transdermal WEEKLY 09/11/19 03/14/25 09/04/19 History transdermal patch bupropion HCl 75 mg tablet 150 mg PO DAILY 09/11/19 03/29/25 03/28/25 History ibuprofen 800 mg tablet 800 mg PO TID PRN Back Pain 09/11/19 03/14/25 Unknown History omeprazole 40 mg capsule,delayed 40 mg PO DAILY 09/11/19 03/29/25 03/28/25 History release aspirin 81 mg capsule 81 mg PO DAILY 10/15/21 03/29/25 03/28/25 History calcium carbonate 250 mg PO DAILY PRN Acid Reflux 10/15/21 03/29/25 03/28/25 History diltiazem HCl 120 mg 120 mg PO DAILY 10/15/21 03/29/25 03/29/25 07:00 History capsule,extended release 24 hr fluticasone propionate 50 1 spray intranasal DAILY 10/15/21 03/14/25 Unknown History mcg/actuation nasal spray,suspension krill 1 cap PO DAILY 10/15/21 03/29/25 03/28/25 History spx-hx-1-ftk-hep-vxmmpypxrlklz 300 mg-90 mg-24 mg-50 mg capsule (krill oil) lactobacillus combination no.8 3 1 cell PO DAILY 10/15/21 03/29/25 03/28/25 History billion cell capsule metoprolol succinate 100 mg 100 mg PO DAILY 10/15/21 03/29/25 03/29/25 07:00 History tablet,extended release 24 hr multivitamin with minerals-folic 1 tablet PO DAILY 10/15/21 03/29/25 03/28/25 History acid 0.4 mg tablet psyllium husk 0.52 gram capsule 0.52 g PO DAILY 10/15/21 03/29/25 03/28/25 History (Fiber-Caps (psyllium husk)) dulaglutide 3 mg/0.5 mL 4.5 mg subcut WEEKLY 03/14/25 03/29/25 03/25/25 History subcutaneous pen injector (Trulicity) insulin glargine 100 unit/mL (3 85 unit subcut DAILY 03/14/25 03/29/25 03/28/25 History mL) subcutaneous pen (Lantus Solostar U-100 Insulin) loratadine 10 mg tablet (Claritin) 10 mg PO DAILY 03/14/25 03/29/25 03/28/25 History rosuvastatin 10 mg tablet 10 mg PO DAILY 03/14/25 03/29/25 03/28/25 History Allergies Allergy/AdvReac Type Severity Reaction Status Date / Time No Known Allergies Allergy Unknown Verified 08/25/25 15:20 Review of Systems Review of Systems: CONSTITUTIONAL: Denies fever, chills, or sweats. EYES: Denies visual changes, redness, or discharge. ENT: Denies rhinorrhea, congestion, sore throat, or otalgia. CARDIOVASCULAR: Denies chest pain, chest pressure, dizziness, lightheadedness palpitations, or edema. RESPIRATORY: Positive for cough and dyspnea with exertion. No dyspnea at rest. GASTROINTESTINAL: Denies abdominal pain, nausea, vomiting, or diarrhea. GENITOURINARY: Denies dysuria or hematuria. Positive for cloudy urine. SKIN: Denies rash or itching. MUSCULOSKELETAL: Positive for mid back pain. Negative for joint pain, or myalgia. NEUROLOGIC: Denies headache, numbness, or weakness. PSYCHIATRIC: Denies anxiety or depression. All other systems reviewed are negative, except as documented in HPI. [facility] Past Medical History Medical History Shingles Anxiety Depression IDDM (insulin dependent diabetes mellitus) Poorly controlled Arthritis Fibromyalgia History of emphysema COPD (chronic obstructive pulmonary disease) HTN (hypertension) HLD (hyperlipidemia) Surgical History Surgical History Labial abscess Hx of abdominoplasty History of bladder surgery Repair of injury associated with laparoscopic hysterectomy performed at the same time as the hysterectomy History of x2 H/O: hysterectomy Laparoscopic hysterectomy with bilateral salpingo-oophorectomy August 2011 due to dysfunctional uterine bleeding urine and uterine polyps H/O cardiac catheterization Family History Family History Father High cholesterol Diabetes mellitus Cerebrovascular accident Sibling Diabetes mellitus Mother Hypertension Social History Social History Social History: The patient lives in her own home and has a large dog who is 12 years. Her grandchildren come over on the weekends and stay with her. She has 2 children who are reportedly healthy. She quit smoking 1 year ago prior to quitting she smoked 1 pack per day since she was 14 years old. She rarely drinks alcohol. She is on disability due to fibromyalgia, and arthritis. The patient's primary care physician is Dr. Magdalena Orlando. Code status is full code. Smoking packs per day: 1.5 Smoking cigarettes per day: 30.0 Years smoked: 47 Smoking pack-years: 70.50 Smoking status: Former smoker Tobacco type: cigarettes Additional smoking assessment comments: CURRENTLY VAPING Alcohol intake: never Substance use: never Substance use type: does not use Living arrangements: with family Gender identity (if verbalized by the patient): Female Spiritual care concerns: No Agree to blood products: Yes Comments At the time of my signature, I reviewed and agree with the nursing past medical, surgical, social, and family history. There is no relevant family history pertinent to the patient complaint. Exam Narrative: GENERAL: This is a well-nourished, well-developed adult, in no apparent distress. They are non ill-appearing, nontoxic appearing. HEAD: normocephalic, atraumatic. EYES: Sclera clear/white. Conjunctiva normal. Vision is grossly intact. Extraocular movements intact EARS: External ears normal, auditory canals clear and without drainage, TMs normal without perforation. Hearing grossly intact. NOSE: External nose normal with no obvious nasal discharge, nasal turbinates without redness, no rhinorrhea. THROAT: Mucous membranes moist, posterior pharynx clear, without erythema or swelling. Uvula midline. NECK: Neck supple, non-tender without lymphadenopathy, masses or thyromegaly. CARDIOVASCULAR: Regular rate and rhythm without murmurs, gallops, or rubs. RESPIRATORY: Diminished. Breath sounds equal bilaterally. No wheezes, rales, or rhonchi. SKIN: warm, Dry, intact with no suspicious lesions or rash, good texture and turgor. NEURO: awake, alert, and oriented to person, place and time. There were no obvious focal neurologic abnormalities. EXTREMITIES: No joint tenderness, effusion, or edema noted. BACK: Nontender without deformity. No CVA tenderness. Course Course Emergency Course: Portions of this record may have been created with voice recognition software Level of Care: Express Care Visit Vital Signs Vital signs: Vital Signs Temperature 98.0 F 08/25/25 15:07 Pulse Rate 101 H 08/25/25 15:07 Respiratory Rate 30 H 08/25/25 15:07 Blood Pressure 105/68 08/25/25 15:07 Pulse Oximetry 92 08/25/25 15:07 Oxygen Delivery Room Air 08/25/25 15:07 Temperature 98.0 F 08/25/25 15:07 Pulse Rate 89 08/25/25 15:57 Respiratory Rate 20 08/25/25 15:57 Blood Pressure 105/68 08/25/25 15:07 Pulse Oximetry 98 08/25/25 15:57 Oxygen Delivery Room Air 08/25/25 15:57 Reviewed MDM - SOB/Dyspnea MDM Narrative Medical decision making narrative: Patient given a DuoNeb for shortness of breath and reports significant improvement of symptoms. Patient no longer feels short of breath. EKG is a sinus rhythm without any ischemic findings. Chest x-ray is negative for any acute cardiopulmonary findings. Urine dipstick as 1+ nitrites. Patient is having no dysuria or frequency he reports cloudy urine and smelly urine. Urine culture is pending. No CVA tenderness. Patient likely had a COPD exacerbation as well. Avoid and treat her with Augmentin along with prednisone. Previous urine culture shows history of ESBL appears susceptible to Augmentin. Will also send patient home with a DuoNeb for nebulizer. Patient's vital signs hemodynamically stable, normal oxygen saturation. Patient is nontoxic appearing, no apparent distress. Strict ER precautions discussed with patient. Discussed physical exam findings. Advised supportive measures and signs/symptoms to go to the ER. Pt is appropriate for outpt treatment and f/u. Differential Diagnosis Differential diagnosis: Likely acute exacerbation of chronic obstructive airways disease, community acquired pneumonia, asthma with exacerbation and other (Urinary tract infection, pyelonephritis, acute coronary syndrome) Lab Data Attestation: I reviewed the patient's lab results. Labs: Lab Results 08/25/25 Range/Units 15:51 POC Urine Color Dark POC Urine Clarity Cloudy POC Urine pH 6.0 POC Ur Specif [place] 1.010 POC Urine Protein Negative (Negative) POC Ur Glucose (UA) 2+ (Negative) POC Urine Ketones Negative (Negative) POC Urine Blood Negative (Negative) POC Urine Nitrite Positive (Negative) POC Urine Bilirubin Negative (Negative) POC Urine Urobilinogen 0.2 POC U Leukocyte Esteras Negative (Negative) Imaging Data Radiologist's impression: ITS Impressions Chest X-Ray 08/25/25 15:43 IMPRESSION: 1. No focal acute process. ECG Data EKG #1: Attestation: I personally reviewed and interpreted this ECG as follows: ECG completion date: 08/25/25 ECG completion time: 15:30 Prior ECG tracings: not available for review EKG Interpretation: normal rate, sinus rhythm, no ectopy, no ST changes, normal QRS, normal QT, NL axis, other (baseline artifact) and no acute changes Critical Care Time Critical Care Time Critical Care Time: No Discharge Plan Discharge Clinical Impression: COPD exacerbation Urinary tract infection Qualifiers: Urinary tract infection type: site unspecified Hematuria presence: without hematuria Qualified Code(s): N39.0 - Urinary tract infection, site not specified Patient Disposition: Home Condition: Stable Instructions: Antibiotic Form, COPD (Chronic Obstructive Pulmonary Disease) (ED), Urinary Tract Infection in Older Adults (ED) Additional Instructions: Take the antibiotic as prescribed The urine will be sent of for a culture to identify what type of bacteria is causing your infection. If the culture shows that the antibiotic will not get rid of your infection, you will be notified and a new antibiotic will be called in for you. Increase water intake Chest x-ray was negative for any acute cardiopulmonary findings Please use the DuoNeb treatment as directed, use as needed for wheezing or shortness of breath. Take the prednisone as directed. Continue usual inhalers as directed. you will need to follow up with your PCP 3-5 days. Go to the ER for any worsening symptoms, abdominal pain, difficulty breathing, shortness of breath at rest, unable to speak in full sentences, chest pains, fevers, nausea, vomiting, or any other concerns Patient Language: Turkmen Prescriptions: New prednisone 20 mg tablet 40 mg PO DAILY 5 Days Qty: 10 0RF ipratropium-albuterol 0.5 mg-3 mg(2.5 mg base)/3 mL solution for nebulization 3 ml inhalation Q6H PRN (Reason: shortness of breath or wheezing) Qty: 90 0RF amoxicillin-pot clavulanate 875-125 mg tablet 1 tablet PO Q12H 7 Days Qty: 14 0RF No Action ibuprofen 800 mg tablet 800 mg PO TID PRN (Reason: Back Pain) amitriptyline 25 mg tablet 25 mg PO DAILY bupropion HCl 75 mg tablet 150 mg PO DAILY buprenorphine 5 mcg/hour patch weekly 5 mcg transdermal WEEKLY omeprazole 40 mg Capsule,Delayed Release(Dr/Ec) 40 mg PO DAILY albuterol sulfate [ProAir HFA] 90 mcg/actuation Hfa Aerosol Inhaler 2 puff INHALATION QID PRN (Reason: Shortness Of Breath) budesonide-formoterol [Symbicort] 160-4.5 mcg/actuation Hfa Aerosol Inhaler 2 puff INHALATION Q12H metoprolol succinate 100 mg tablet extended release 24 hr 100 mg PO DAILY diltiazem HCl 120 mg capsule,extended release 24hr 120 mg PO DAILY fluticasone propionate 50 mcg/actuation spray,suspension 1 spray INTRANASAL DAILY psyllium husk [Fiber-Caps (psyllium husk)] 0.52 gram Capsule 0.52 g PO DAILY calcium carbonate 250 mg calcium (625 mg) Tablet 250 mg PO DAILY PRN (Reason: Acid Reflux) multivit with min-folic acid [Adult One Daily Multivitamin] 0.4 mg Tablet 1 tablet PO DAILY umnoo-ikilw-6-hfv-cxi-pblzcc [krill oil] 943-22-69-50 mg Capsule 1 cap PO DAILY Adult Probiotic 3 billion cell Capsule 1 cell PO DAILY aspirin 81 mg Capsule 81 mg PO DAILY rosuvastatin 10 mg tablet 10 mg PO DAILY loratadine [Claritin] 10 mg tablet 10 mg PO DAILY insulin glargine [Lantus Solostar U-100 Insulin] 100 unit/mL (3 mL) insulin pen 85 unit SUBCUT DAILY Trulicity 3 mg/0.5 mL pen injector 4.5 mg SUBCUT WEEKLY Patient Comments: Patient takes on Fridays Follow-up/Referrals: Jass,Sarah Gramajo NP [Primary Care Provider, Unknown] Time of Disposition: 16:15
== END 2025-08-25 16:30 | disposition home or self-care (01) ==
PROVIDERS: PCP Nurse Practitioner Family
DX: J44.1 Chronic obstructive pulmonary disease with (acute) exacerbation (principal); N39.0 Urinary tract infection, site not specified; F17.290 Nicotine dependence, other tobacco product, uncomplicated; I10 Essential (primary) hypertension; E11.9 Type 2 diabetes mellitus without complications; Z79.4 Long term (current) use of insulin; Z79.85 Long-term (current) use of injectable non-insulin antidiabetic drugs; E78.5 Hyperlipidemia, unspecified; M79.7 Fibromyalgia; M19.90 Unspecified osteoarthritis, unspecified site; F41.9 Anxiety disorder, unspecified; F32.A Depression, unspecified; Z79.82 Long term (current) use of aspirin
CPT/HCPCS: 71046; 81003; 87077; 87086; 87186; 93005; 94640; 99213; G0463